=== PATIENT | female | born 2005 | race Caucasian/White ===

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

== ENCOUNTER → 2025-01-02 | Outpatient (CLI) | payer BC, SELFPAY ==
[2025-01-02 12:46] LABS: Hematocrit 37.4 % (37-47); Hemoglobin 12.2 g/dL (12.0-15.0); Immature Granulocytes Count 0.030 X10^3/uL (0.0-0.0); Mean Corp Hgb Conc 32.6 g/dL (32-36); Mean Corpuscular Volume 88.0 fL (81-99); Mean Platelet Vol. 9.8 fl (6.2-12.0); NRBC Flagged by Analyzer 0 % (0-5); Platelet Count 269 K/mm3 (150-450); RBC Distribution Width CV 12.7 % (11.6-14.6); RBC Distribution Width SD 41.1 fl (35.1-43.9); Red Blood Count 4.25 M/mm3 (4.2-5.4); White Blood Count 9.6 K/mm3 (4.4-11.0)
== END | disposition home or self-care (01) ==
LOC: BFHLAB 10:18
PROVIDERS: PCP Family Medicine; Visit Provider Student in an Organized Health Care Education/Training Program
DX: K62.5 Hemorrhage of anus and rectum (principal)
CPT/HCPCS: 36415; 85025

== ENCOUNTER → 2025-01-06 | Outpatient (CLI) | payer BC, SELFPAY ==
[2025-01-07 17:08] LABS: Immunoglobulin A 140 mg/dL (87-352)
== END | disposition home or self-care (01) ==
LOC: LAB 08:52
PROVIDERS: PCP Family Medicine; Referring Provider Student in an Organized Health Care Education/Training Program; Visit Provider Student in an Organized Health Care Education/Training Program
DX: R10.13 Epigastric pain (principal); R19.5 Other fecal abnormalities
CPT/HCPCS: 36415; 82784; 83516; 86255

== ENCOUNTER 2025-02-01 12:34 | Emergency (ER) | payer BC, SELFPAY ==
[2025-02-01 12:34] VITALS: BP 129/88; PULSE 84; RESP 16; TEMP 36.9; O2SAT 100; BMI 22.1
--- OUTSIDE RECORDS SUMMARY | 2025-02-01 12:59 | XMS RPT_ITS | CCD ---
Author Organization [facility] Inform ion [facility] Care Team Providers Care Yellow Pages Space Salesperson Name Role Phone Alan Vences MD Primary Care Provider Dr. Shawn Vences Primary Care Provider [phone] Dr. Shawn Vences Referring Provider Joanne INTERMEDIATE MANAGER, [place] Attending Provider [phone] LIO HOOD Attending Unavailable ALAN VENCES Referring [...] Care Provider UnavailHASMUKH Bae Attending Unavailable Sandra MNCALLY, Dr. Nicole Primary Care Provider [phone] Sandra MCNALLY, Dr. Nicole Referring Provider Joanne INTERMEDIATE MANAGER-C, Trista Attending Provider Jeremy INTERMEDIATE MANAGER-C, Mayelin Attending Provider Jeremy INTERMEDIATE MANAGER-C, Mayelin Referring Provider Sandra MCNALLY, Dr. Nicole Attending Provider [phone] Jeremy INTERMEDIATE MANAGER-C, Mayelin Other Provider Dr. Kadie Gonzales DO Emergency Provider Sandra MCNALLY, Dr. Nicole Primary Care Provider Dr. Bonnie Flores MD Referring Provider [phone] Dr. Kadie Gonzales DO Attending Provider Dr. Pola Mirza DO Attending Provider Dr. Pola Mirza DO Other Provider Sandra MCNALLY, Dr. Nicole Primary Care Physician Jeremy INTERMEDIATE MANAGER-C, Mayelin Attending Physician Dr. Bonnie Flores MD Attending Physician Jeremy INTERMEDIATE MANAGER-C, Mayelin Nurse Practitioner Dr. Kadie Gonzales DO Attending Physician Dr. Kadie Gonzales DO Emergency Department Physi vita Dr. Pola Mirza DO Attending Physician Hermes PARTIDA, Dr. Escalona Nurse Practitioner Abbie Corea Attending Physician [phone] Abbie Corea Referring Provider Sebastián Hankins Attending Unavailable Bonnie Flores Primary Care Unavailable Pola Mirza Attending Unavailable Bonnie Flores Referring Unavailable Bonnie Flores Primary Care Unavailable Bonnie Flores Primary Care Unavailable Bonnie Flores Attending Unavailable Mayelin Luna Consulting Unavailable Miedel, Bonnie Referring Unavailable Miedel, Bonnie Primary Care Unavailable Mayelin Luna Attending Unavailable Mayelin Luna Referring Unavailable Abbie Tenorio Attending Unavailable Miedel, Bonnie Primary Care Unavailable Trista Rubio NP Attending Unavailable Miedel, Bonnie Referring Unavailable Miedel, Bonnie Primary Care Unavailable Mayelin Luna Attending Unavailable Miedel, Bonnie Referring Unavailable Miedel, Bonnie Primary Care Unavailable Abbie Tenorio Attending Unavailable Miedel, Bonnie Referring Unavailable Miedel, Bonnie Primary Care Unavailable Friend, Pola Consulting Unavailable Friend, Pola Attending Unavailable Miedel, Bonnie Referring Unavailable Miedel, Bonnie Primary Care Unavailable Abbie Tenorio Attending Unavailable Abbie Tenorio Referring Unavailable Miedel, Bonnie Primary Care Unavailable Miedel, Bonnie Attending Unavailable Miedel, Bonnie Referring Unavailable Miedel, Bonnie Primary Care Unavailable Miedel, Bonnie Primary Care Unavailable Mayelin Luna Referring Unavailable Mayelin Luna Attending Unavailable Kadie Gonzales Attending Unavailable Miedel, Bonnie Primary Care Unavailable Medications [...] Estradiol (20 sources) Progestin, Estrogen Start: 08-19-2024 Start: 08-19-2024 Norgestimate-E thinyl Estradiol (Sprintec (28)) 0.25-35 mg-mcg tablet Active 1 {tbl} PO daily 84 August 19, 2024 8:12am Start: 07-22-2024 End: [...] TABLET PO daily February 21, 2022 12:00am hyoscyamine sulfate 0.125 mg oral tablet (3 sources) Start: 01-06-2025 ibuprofen 200 mg oral tablet (2 sources) [...] End: 11-22-2021 Lactated Ringers IV Desogestrel-Ethinyl Estradiol (11 sources) Progestin, Estrogen Start: 01-12-2022 End: 02-21-2022 [...] 11, 2022 11:00pm February 21, 2022 1:30pm dicyclomine hydrochloride 20 mg oral tablet (5 sources) Anticholinergic Start: 12-05-2024 End: 12-17-2024 take 1 tablet by mouth twice daily Dicyclomine 20 mg tablet Discontinued 20 mg PO TWICE A DAY 0 December 05, 2024 12:00am December 17, 2024 10:28am doxycycline hyclate 20 mg oral tablet (11 sources) Tetracycline-class Drug Start: 01-12-2022 End: 02-04-2024 [...] Patch ondansetron 4 mg disintegrating oral tablet (9 sources) Serotonin-3 Receptor Antagonist Start: 02-04-2024 End: [...] Active Problems Problem Classification Problem Date Documented Da te Episodic/Chronic Abdominal pain (20 sources) Generalized abdominal pain; Translations: [Generalized abdominal pain] Onset: 12-06-2024 02-12-2024 Episodic Administrative/social admission (1 source) Encounter for examination for admission to educational institution; Translations: [Encounter for examination for admission to educational institution] Onset: 12-04-2024 Episodic Contraceptive and procreative management (3 sources) Encounter for initial prescription of contraceptive pills; Translations: [General counseling on prescription of oral contraceptives] Episodic Fluid and electrolyte disorders (8 sources) Dehydration; Translations: [Dehydration] 02-12-2024 Episodic Gastrointestinal hemorrhage (4 sources) Rectal hemorrhage; Translations: [Hemorrhage of anus and rectum] Onset: 01-14-2025 01-01-2025 Episodic Immunizations and screening for infectious disease (1 source) Contact with and (suspected) exposure to infections with a predominantly sexual mode of transmission; Translations: [Contact with or exposure to venereal diseases] Episodic Other gastrointestinal disorders (5 sources) Diarrhea; Translations: [Diarrhea, unspecified] 12-06-2024 Episodic Other gastrointestinal disorders (6 sources) Loose stool; Translations: [Other fecal abnormalities] 01-06-2025 Episodic Other gastrointestinal disorders (1 source) Other fecal abnormalities; Translations: [Other fecal abnormalities] Onset: 01-06-2025 Episodic Other gastrointestinal disorders (1 source) Diarrhea, unspecified; Translations: [Diarrhea, unspecified] Onset: 01-09-2025 Episodic Other nervous system disorders (1 source) Postoperative pain ; Translations: [Other acute postprocedural pain] Episodic Other non-traumatic joint disorders (4 sources) Shoulder pain; Translations: [Pain in right shoulder] Onset: 11-04-2021 Episodic Other nutritional; endocrine; and metabolic disorders (8 sources) Ketosis; 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 disorders] 02-12-2024 Chronic Other skin disorders (15 sources) Acne; Translations: [Acne, unspecified] 04-05-2022 Episodic Comment on above: sprintec Other upper respiratory infections (3 sources) Acute upper respiratory infection, unspecified; Translations: [Acute upper respiratory infection] Onset: 12-25-2023 Episodic Residual codes; unclassified (11 sources) History of operative procedure on shoulder; Translations: [Other specified postprocedural states] 01-12-2022 Episodic Comment on above: R, LABRAL TEAR Viral infection (1 source) Viral disease; Translations: [Viral infection, unspecified] 05-19-2024 Episodic Past or Other Problems Problem Classification Problem Date Documented Da te Episodic/Chronic Nausea and vomiting (9 sources) Nausea, vomiting and diarrhea; Translations: [Nausea with vomiting, unspecified] Onset: 08-19-2024 02-12-2024 Episodic Other skin disorders (4 sources) Acne, unspecified; Translations: [Other acne] Onset: 09-19-2024 Episodic Results Test Name Value Interpretation Reference Range Facility Celiac Disease Profileon ENDOMYSIAL IGA Negative Normal Negative [facility] Comment on above: Performed By: #### L 500.2500 #### [facility] [address] [place], [place], [id number] IMMUNOGLOB A QN 140 mg/dL Normal 87-352 [facility] Comment on above: Result Comment: Perf ormed at: - [facility] [address] [id number] Sales Order Administrator: Sean Alvarez PhD, Phone: [phone] Performed By: #### L 500.2500 #### [facility] [address] [place], [place], [address] tTG IGA <2 Normal 0-3 [facility] Comment on above: Result Comment: Nega tive 0 - 3 Weak Positive 4 - 10 Positive >10 Tissue Transglutaminase (tTG) has been identified as the endomysial antigen. Studies have demonstr- ated that endomysial IgA antibodies have over 99% specificity for gluten sensitive enteropathy. Performed By: #### L 500.2500 #### [facility] [address] [place], [place], [address] Gastroenterology Visit Repor ton 01-06-2025 Gastroenterology Visit Report [facility] Gastroenterology [address] [place] [address] OFFICE VISIT Date of Service: 01/06/25 MR#: [id number] Acct: [id number] Name: AMELIE NAIK Rep #: [id number] : 2005 Provider: IFRAH Freeman Age/Sex: 19/F Location: [facility] Status: Signed Intake Vital Signs 08/19/24 08:05 12/23/24 12:20 Height 5 ft 6 in 5 ft 6 in Intake Visit Reasons: Test Result Chief Complaint: test results and rectal bleeding Nut Feeder Required: No Is patient in pain?: Yes (lower abdomen) Allergies No Known Allergies Allergy (Verified 01/06/25 08:32) Medications ???Medication ???Instructions ???Recorded ???Confirmed ???Type norgestimate 0.25 mg-ethinyl 1 tab PO QDAY #84 tabs 08/19/24 Rx estradiol 0.035 mg tablet (Sprintec (28)) hyoscyamine sulfate 0.125 mg tablet 0.125 mg PO BID-QID PRN dyspeps ia 01/06/25 01/06/25 Rx #30 tabs PFSH Medical History Back pain Non-smoker Acne Surgical History H/O shoulder surgery Social History pets and animals: Yes sexually active: No Smoking Status: Never smoker alcohol intake: never substance use type: does not use well-balanced diet: daily or most days caffeine: Yes Type: carbonated beverages, coffee and other what type of physical activity do you participate in: weight training seatbelt use: always HPI HPI Chief Complaint: test results and rectal bleeding Details: AMELIE NAIK, is a 19 F who presents to the office today for follow-up. BGI established 11.27.24 with concerns for IBD patient has symptoms including abdominal pain, diarrhea and 7 pound unintentional weight loss over the past few months, nausea and excessive gas. Laboratory findings: CBC without abnormality, CMP without abnormality, PATEL negative, food allergen negative, calprotectin negative, pancreatic elastase within normal limits CT abdomen pelvis On ovulating follicle in the left ovary with trace physiological free fluid in the pelvis. Otherwise, no acute abdominopelvic abnormalities Colonoscopy 12.23.24- The entire examined colon is normal. Biopsied. - Mild inflammation was found in the ileum secondary to ileitis. Biopsied. Pathology: Terminal ileum biopsy with mild acute inflammation prominent mucosal lymphoid tissue favor reactive. Colon biopsy no specific pathologic change. OV 01.06.25 patient continues to have loose stool daily. She has around 5 bowel movements per day that are sometimes formed and sometimes loose. Patient's abdominal pain is typically after she eats and is in her lower quadrants. At times she can have random sharp pains that are periumbilical. She did have an episode of bright red blood per rectum which filled the bowl. CBC was normal and she was seen by her primary care provider and given a cream for hemorrhoids. Bleeding has since resolved. ROS Const Constitutional: No fatigue, fever(s) or weight change ENT ENT: No difficulty swallowing Gastro GI: Positive for abdominal pain, diarrhea, Blood in stool and nausea/dyspepsia; No belching, bloating, change in bowel habits, change in stool character, coffee ground emesis, constipation, cramping, heartburn, difficulty swallowing, feeling full early, excessive flatus, incontinent of stools, Vomiting blood/hematemesis, loose stools, Black,tarry stools, pain with swallowing, vomiting or other Musc Musculoskeletal: Positive for back pain; No joint pain Skin Skin: No yellowing of the eye or itchy eyes Psych Psychiatric: No anxiety and No depression Endo Endocrine: No fatigue or weight change Aller/Imm Allergy/Immunologic: No itchy eyes [facility] Hematologic/Lymphatic : No easy bleeding or easy bruising Exam Const General: cooperative, healthy appearing and comfortable Nutritional Appearance: average body habitus Orientation: alert [facility] Head: normal to inspection Ears: hearing grossly normal bilaterally Nose: external nose normal Eyes General: appearance normal, both eyes and all related structures Neck Neck: normal visual inspection Chest Chest palpation inspection: normal inspection of the chest Resp Effort Inspection: normal respiratory effort Cardio Rate: regular rate Rhythm: regular rhythm GI Inspection: normal to inspection Auscultation: normal bowel sounds Palpation: soft and nontender Assessment and Plan Assessment and Plan (1) Abdominal pain: Status: Acute Qualifiers: Abdominal location: epigastric Qualified Code(s): R10.13 - Epigastric pain Plan: Amelie is a 19-year-old female patient here today for follow-up after her colonoscopy. Colonoscopy showing mild infl (more content not included)... Normal [facility] Serum or plasma IgA measurem ent (mass/volume)Ordered By: Abbie Tenorio on 01-06-2025 IgA [Mass/Vol] 140 mg/dL 87-352 [facility] Comment on above: Performed at: [address] [id number] Director: Sean Alvarez PhD, Phone: [phone] Serum tissue transglutaminas e (tTG) IgA antibody assay (units/volume)Ordered By: Abbie Tenorio on 01-06-2025 tTG IgA Qn (S) <2 U/mL 0-3 [facility] Comment on above: Negative 0 - 3 Weak Positive 4 - 10 Positive >10 Tissue Transglutaminase (tTG) has been identified as the endomysial antigen. Studies have demonstr- ated that endomysial IgA antibodies have over 99% specificity for gluten sensitive enteropathy. Absolute lymphocyte countOrd ered By: Abbie Tenorio on 01-02-2025 Lymphocytes Auto (Unsp spec) [#/Vol] 1.20 10*3/uL 0.83-4.51 [facility] Absolute neutrophil countOrd ered By: Abbie Tenorio on 01-02-2025 Neutrophils (Bld) [#/Vol] 7.5 10*3/uL 2.0-7.7 [facility] Automated lymphocyte count a s percentage of total leukocytesOrdered By: Abbie Tenorio on 01-02-2025 Lymphocytes/100 WBC Auto (Unsp spec) 12.5 % Low - [facility] Basophil percentageOrdered B y: Abbie Tenorio on 01-02-2025 Basophils/100 WBC (Bld) 0.3 % 0-1 [facility] CBC W/Diff, Automatedon 12-15 Absolute Lymph 1.20 X10 3/uL Normal 0.83-4.51 [facility] Comment on above: Order Comment: DR. Shauna DUPREE ALSO ORDERED CBCD Performed By: #### L 500.2500 #### [facility] [place] [facility] [address] [place], [address] Absolute Neut 7.5 X10 3/uL Normal 2.0-7.7 [facility] Comment on above: Order Comment: DR. Shauna DUPREE ALSO ORDERED CBCD Performed By: #### L 500.2500 #### [facility] [address] [place], [address] Basophils/100 WBC (Bld) 0.3 % Normal 0-1 [facility] Comment on above: Order Comment: DR. Shauna DUPREE ALSO ORDERED CBCD Performed By: #### L 500.2500 #### [facility] [address] [place], [address] Eosinophils/100 WBC (Bld) 2.1 % Normal 0-5 [facility] Comment on above: Order Comment: DR. Shauna DUPREE ALSO ORDERED CBCD Performed By: #### L 500.2500 #### [facility] [address] [place], [address] Erythrocyte distribution width (RBC) [Ratio] 12.7 % Normal 11.6-14.6 [facility] Comment on above: Order Comment: DR. Shauna DUPREE ALSO ORDERED CBCD Performed By: #### L 500.2500 #### [facility] [address] [place], [address] Hematocrit (Bld) [Volume fraction] 37.4 % Normal 37-47 [facility] Comment on above: Order Comment: DR. Shauna DUPREE ALSO ORDERED CBCD Performed By: #### L 500.2500 #### [facility] [address] [place], [address] Hemoglobin (Bld) [Mass/Vol] 12.2 g/dL Normal 12.0-15.0 [facility] Comment on above: Order Comment: DR. Shauna DUPREE ALSO ORDERED CBCD Performed By: #### L 500.2500 #### [facility] [address] [place], [address] IG% 0.300 Normal 0.0-0.9 [facility] Comment on above: Order Comment: DR. Shauna DUPREE ALSO ORDERED CBCD Result Comment: IG% - Immature Granulocytes (promyelocytes, myelocytes and metamyelocytes) > 1% indicates that a LEFT SHIFT is Present. Performed By: #### L 500.2500 #### [facility] [address] [place], [address] Lymphocytes/100 WBC (Bld) 12.5 % Low 19-41 [facility] Comment on above: Order Comment: DR. Shauna DUPREE ALSO ORDERED CBCD Performed By: #### L 500.2500 #### [facility] [address] [facility] [place], [address] MCH (RBC) [Entitic mass] 28.7 pg Normal 27.0-32.0 [facility] Comment on above: Order Comment: DR. Shauna DUPREE ALSO ORDERED CBCD Performed By: #### L 500.2500 #### [facility] [address] [facility] [place], [address] MCHC (RBC) [Mass/Vol] 32.6 g/dL Normal 32-36 [facility] Comment on above: Order Comment: DR. Shauna DUPREE ALSO ORDERED CBCD Performed By: #### L 500.2500 #### [facility] [address] [facility] [place], [address] MCV (RBC) [Entitic vol] 88.0 fL Normal 81-99 [facility] Comment on above: Order Comment: DR. Shauna DUPREE ALSO ORDERED CBCD Performed By: #### L 500.2500 #### [facility] [address] [facility] [place], [address] Monocytes/100 WBC (Bld) 6.5 % Normal 0-10 [facility] Comment on above: Order Comment: DR. Shauna DUPREE ALSO ORDERED CBCD Performed By: #### L 500.2500 #### [facility] [address] [place], [address] Neutrophils/100 WBC (Bld) 78.3 % High 47-70 [facility] Comment on above: Order Comment: DR. Shauna DUPREE ALSO ORDERED CBCD Performed By: #### L 500.2500 #### [facility] [address] [place], [address] Nucleated RBC (Bld) [#/Vol] 0 10*3/uL Normal 0-5 [facility] Comment on above: Order Comment: DR. Shauna DUPREE ALSO ORDERED CBCD Performed By: #### L 500.2500 #### [facility] [address] [place], [address] Platelet mean volume (Bld) [Entitic vol] 9.8 fL Normal 6.2-12.0 [facility] Comment on above: Order Comment: DR. Shauna DUPREE ALSO ORDERED CBCD Performed By: #### L 500.2500 #### [facility] [address] [place], [address] Platelets (Bld) [#/Vol] 269 10*3/uL Normal 150-450 [facility] Comment on above: Order Comment: DR. Shauna DUPREE ALSO ORDERED CBCD Performed By: #### L 500.2500 #### [facility] [address] [place], [address] RBC (Bld) [#/Vol] 4.25 10*6/uL Normal 4.2-5.4 [facility] Comment on above: Order Comment: DR. Shauna DUPREE ALSO ORDERED CBCD Performed By: #### L 500.2500 #### [facility] [address] [place], [address] RDW SD 41.1 fl Normal 35.1-43.9 [facility] Comment on above: Order Comment: DR. Shauna DUPREE ALSO ORDERED CBCD Performed By: #### L 500.2500 #### [facility] [address] [place], [place], [address] WBC (Bld) [#/Vol] 9.6 10*3/uL Normal 4.4-11.0 [facility] Comment on above: Order Comment: DR. Shauna DUPREE ALSO ORDERED CBCD Performed By: #### L 500.2500 #### [facility] [address] [facility] [address] [place], [place], [address] Eosinophil percentageOrdered By: Abbie Tenorio on 01-02-2025 Eosinophils/100 WBC (Bld) 2.1 % 0-5 [facility] Erythrocyte distribution wid th ratioOrdered By: Abbie Tenorio on 01-02-2025 Erythrocyte distribution width (RBC) [Ratio] 12.7 % 11.6-14.6 [facility] Erythrocyte distribution wid th standard deviationOrdered By: Abbie Tenorio on 01-02-2025 Erythrocyte distribution width (RBC) [Ratio] 41.1 fl 35.1-43.9 [facility] Hematocrit Auto (Bld) [Volum e fraction]Ordered By: Abbievicky Tenorio on 01-02-2025 Hematocrit (Bld) [Volume fraction] 37.4 % 37-47 [facility] Hemoglobin measurementOrdere d By: Abbie Tenorio on 01-02-2025 Hemoglobin (Bld) [Mass/Vol] 12.2 g/dL 12.0-15.0 [facility] Immature granulocytes/100 WB C Auto (Bld)Ordered By: Abbie Tenorio on 01-02-2025 Immature granulocytes/100 WBC (Bld) 0.300 % 0.0-0.9 [facility] Comment on above: IG% - Immature Granu locytes (promyelocytes, myelocytes and metamyelocytes) > 1% indicates that a LEFT SHIFT is Present. MCV (mean corpuscular volume ) determinationOrdered By: Abbie Tenorio on 01-02-2025 MCV (RBC) [Entitic vol] 88.0 fL 81-99 [facility] Mean corpuscular hemoglobin (MCH) determinationOrdered By: Abbie Tenorio on 01-02-2025 MCH (RBC) [Entitic mass] 28.7 pg 27.0-32.0 [facility] Mean corpuscular hemoglobin concentration (MCHC) determinationOrdered By: Abbie Tenorio on 01-02-2025 MCHC (RBC) [Mass/Vol] 32.6 g/dL 32-36 [facility] Mean platelet volume determi nationOrdered By: Abbie Tenorio on 01-02-2025 Platelet mean volume (Bld) [Entitic vol] 9.8 fL 6.2-12.0 [facility] Monocyte percentageOrdered B y: Abbie Tenorio on 01-02-2025 Monocytes/100 WBC (Bld) 6.5 % 0-10 [facility] Neutrophil percentageOrdered By: Abbie Tenorio on 01-02-2025 Neutrophils/100 WBC (Bld) 78.3 % High 47-70 [facility] Nucleated red blood cell per centageOrdered By: Abbie Tenorio on 01-02-2025 Nucleated RBC/100 WBC (Bld) [Ratio] 0 % 0-5 [facility] Platelet countOrdered By: Anya Tenorio on 01-02-2025 Platelets (Bld) [#/Vol] 269 10*3/uL 150-450 [facility] RBC Auto (Bld) [#/Vol]Ordere d By: Abbie Tenorio on 01-02-2025 RBC (Bld) [#/Vol] 4.25 10*6/uL 4.2-5.4 [facility] White blood cell (WBC) count Ordered By: Abbie Tenorio on 01-02-2025 WBC (Bld) [#/Vol] 9.6 10*3/uL 4.4-11.0 [facility] Colonoscopy Reporton 025 Colonoscopy Report [facility] Medical Records Department [address] [place] [address] Colonoscopy Report MR#: [id number] Acct: [id number] Name: AMELIE NAIK Rep #: [id number] : 2005 19 From: Polatiana Mirza DO PCP: Dr. Bonnie Flores MD Status:[facility] Patient Name: Amelie Naik Procedure Date: 12/23/2024 1:37 PM Date of : 2005 Age: 19 Procedure: Colonoscopy Indications: Screening for colorectal malignant neoplasm Providers: DO Carlos A Conde MD: Bonnie Flores Medicines: Monitored Anesthesia Care Patient Profile: This is a 19 year old female. Refer to note in patient chart for documentation of history and physical. Last Colonoscopy: none. The patient's first colonoscopy is today. Complications: No immediate complications. Procedure: Pre-Anesthesia Assessment: - Prior to the procedure, a History and Physical was performed, and patient medications and allergies were reviewed. The patient is competent. The risks and benefits of the procedure and the sedation options and risks were discussed with the patient. All questions were answered and informed consent was obtained. Patient identification and proposed procedure were verified by the physician in the pre-procedure area. Mental Status Examination: alert and oriented. Airway Examination: normal oropharyngeal airway and neck mobility. Respiratory Examination: clear to auscultation. CV Examination: normal. Prophylactic Antibiotics: The patient does not require prophylactic antibiotics. Prior Anticoagulants: The patient has taken no anticoagulant or antiplatelet agents except for NSAID medication. ASA Grade Assessment: II - A patient with mild systemic disease. After reviewing the risks and benefits, the patient was deemed in satisfactory condition to undergo the procedure. The anesthesia plan was to use monitored anesthesia care (MAC). Immediately prior to administration of medications, the patient was re-assessed for adequacy to receive sedatives. The heart rate, respiratory rate, oxygen saturations, blood pressure, adequacy of pulmonary ventilation, and response to care were monitored throughout the procedure. The physical status of the patient was re-assessed after the procedure. After I obtained informed consent, the scope was passed under direct vision. Throughout the procedure, the patient's blood pressure, pulse, and oxygen saturations were monitored continuously. The Colonoscope was introduced through the anus and advanced to the terminal ileum. The colonoscopy was performed without difficulty. The patient tolerated the procedure well. The quality of the bowel preparation was adequate. The terminal ileum, ileocecal valve, appendiceal orifice, and rectum were photographed. Scope In: 1:52:40 PM Scope Withdrawal Time 0 hours 9 minutes 33 seconds Scope Out: 2:08:24 PM Total Procedure Duration Time 0 hours 15 minutes 44 seconds Findings: The perianal and digital rectal examinations were normal. The colon (entire examined portion) appeared normal. Biopsies were taken with a cold forceps for histology. Verification of patient identification for the specimen was done. Estimated blood loss was minimal. Patchy mild inflammation characterized by erosions and erythema was found in the terminal ileum. Biopsies were taken with a cold forceps for histology. Verification of patient identification for the specimen was done. Estimated blood loss was minimal. Impression: - The entire examined colon is normal. Biopsied. - Mild inflammation was found in the ileum secondary to ileitis. Biopsied. Recommendation: - Discharge patient to home. - Resume previous diet. - Continue present medications. - Await pathology results. - Repeat colonoscopy (date not yet determined) for surveillance based on pathology results. Procedure Code(s): --- Professional --- 00590, Colonoscopy, flexible; with biopsy, single or multiple CPT copyright 2021 [employer]. All rights reserved. The codes documented in this report are preliminary and upon dye house wheel operator review may be revised to meet current compliance requirements. Pola Mirza DO 12/23/2024 2:13:37 PM This report has been signed electronically. Number of Addenda: 0 Note Initiated On: 12/23/2024 1:37 PM 12/23/24 1413 Date Pola Mirza DO Cosigner Signature: Date (if indicated) CC: Dr. Bonnie Flores MD; Pola Mirza DO Date Dictated: 12/23/24 1337 Date Transcribed: Air Chief Marshal: AVERY Signed [facility] MR/OP.Melanie 12-23-2024 MR/OP.[facility] Medical Records Department [address] [place] [address] Provation Physician Letter MR#: [id number] Acct: [id number] Name: BURGESSAMELIECASS COLEMAN Rep #: [id number] : 2005 19 From: Pola Mirza DO PCP: Dr. Bonnie Flores MD Status:REG [facility] 12/23/2024 Bonnie Flores [address] [address] Re : Colonoscopy procedure for Amelie Naik Dear Dr. Flores This procedure was performed on Monday, December 23, 2024. My impressions and recommendations are as follows: Impressions : - The entire examined colon is normal. Biopsied. - Mild inflammation was found in the ileum secondary to ileitis. Biopsied. Recommendations : - Discharge patient to home. - Resume previous diet. - Continue present medications. - Await pathology results. - Repeat colonoscopy (date not yet determined) for surveillance based on pathology results. My findings are described in the full procedure note, which is enclosed. If I can be of further assistance, please feel free to contact me at . Sincerely, Pola Mirza DO 12/23/2024 2:13:37 PM This report has been signed electronically. 12/23/24 1413 Date Pola Mirza DO Cosigner Signature: Date (if indicated) CC: Dr. Bonnie Flores MD; Pola Mirza DO Date Dictated: 12/23/24 1337 Date Transcribed: Air Chief Marshal: RF Signed Normal [facility] MR/POSTOP.ANEpaola 12-23-2024 MR/POSTOP.[facility] Medical Records Department [address] [place] [address] Anesthesia Postop Eval I 12/23/24 1417 MR#: [id number] Acct: [id number] Name: AMELIE NAIK Rep #: [id number] : 2005 19 From: Vandana Stephenson CRNA PCP: Dr. Bonnie Flores MD Status:[facility] Y Race: C Location: [place] [address] Anesthesia: Postop Eval I Current Vital Signs Temperature: 98 F Pulse Rate: 73 Blood Pressure: 110/88 Respiratory Rate: 20 Pulse Ox: 99 Assessment Airway patent: Yes Spontaneous unlabored respirations: Yes nausea: No Vomiting: No Anesthesia Complication: No Fluid Hydration Crystalloid volume administer (ml): 300 Total IV fluid infused: 300 Progress Note Anesthesia document: Postop Eval 1 completed: Yes 12/23/24 1418 Date Vandana Stephenson ARTIST AND REPERTOIRE MANAGER Cosigner Signature: Date CC: Signed Normal [facility] MR/[id number] 12-23-2024 [facility] Medical Records Department [address] [place] [address] Anesthesia Postop Eval II 12/23/24 1852 MR#: [id number] Acct: [id number] Name: AMELIE NAIK Rep #: [id number] : 2005 19 From: Ron Delarosa MD PCP: Dr. Bonnie Flores MD Status:[facility] Y Race: C Location: [place] Anesthesia Postop Eval I Sum Postop Eval Completion status Anesthesia document: Postop Eval 1 completed: Yes Anesthesia Postop Eval I Summary Anesthesia Postop Eval I Summary: Anesthesia Postop Eval I: Assessment Summary Airway patent Yes 12/23/24 14:17 ARTIST AND REPERTOIRE MANAGER.CSIR Spontaneous unlabored Yes 12/23/24 14:17 ARTIST AND REPERTOIRE MANAGER.CSIR respirations Mental status nausea No 12/23/24 14:17 ARTIST AND REPERTOIRE MANAGER.CSIR Vomiting No 12/23/24 14:17 ARTIST AND REPERTOIRE MANAGER.CSIR Anesthesia Postop Eval I: Fluid Summary Crystalloid volume administer 300 12/23/24 14:17 ARTIST AND REPERTOIRE MANAGER.CSIR (ml) Colloids volume administered ( ml) Blood Product volume administered (ml) Total IV fluid infused 300 12/23/24 14:17 ARTIST AND REPERTOIRE MANAGER.CSIR Anesthesia Postop Eval I: Summary Notes Anesthesia Complication No 12/23/24 14:17 ARTIST AND REPERTOIRE MANAGER.CSIR Anesthesia Complication Comment: Post-operative progress note Anesthesia: Postop Eval II Evaluation Mental status: Awake and Calm Pain Level: 0 nausea: No Vomiting: No Complications Anesthesia Complication: No 12/23/24 1853 Date Ron Delarosa MD Cosigner Signature: Date CC: Signed [facility] ,Serum,hCG Quali.on 12-23-2024 HCG, SERUM QUAL Negative [facility] Comment on above: Performed By: #### L 500.2500 #### [facility] [address] [place], [place], [id number] ,Urineon 12-23-2024 Beta HCG ( test) Ql (U) [facility] Comment on above: Result Comment: Canc elled via OM: unable to void Performed By: #### P SUIV #### [facility] [address] [place], [place], [id number] INTERNAL QC OK? [facility] Comment on above: Result Comment: Canc elled via OM: unable to void Performed By: #### P SUIV #### [facility] [address] [place], [place], [id number] RECORD KIT LOT# [facility] Comment on above: Result Comment: Canc elled via OM: unable to void Performed By: #### P SUIV #### [facility] [address] [place], [place], [id number] Serum beta-hCG test, qualita tiveOrdered By: Ron Delarosa on 12-23-2024 Beta HCG ( test) Ql Negative [facility] Surgery Specimen Level gAustina 12-23-2024 Surgery Specimen Level IV -------- Patient Age/Sex Location Account Attending Physician -------- AMELIE NAIK / EN [id number] Pola Mirza DO -------- Specimen: [id number] Received: 12/23/24 Status: VALENCIA Khalil Num: [id number] Spec Type: COLON BX Subm Dr: Pola Mirza, DO HEADER OPERATION: Colonoscopy, biopsy PRE-OP DIAGNOSIS: Dysphagia, loose stools, epigastric abdominal pain TISSUE SUBMITTED: A- Terminal ileum biopsy, B- Random colonic biopsy -------- MICROSCOPIC DIAGNOSIS A. Terminal ileum, biopsy: - Mild acute inflammation. - Prominent mucosal lymphoid tissue, favor reactive. B. Colon, random, biopsy: - No specific pathologic change. - The histologic features of microscopic colitis are not demonstrated. MICROSCOPIC DESCRIPTION Slides are reviewed. GROSS DESCRIPTION A. Received in fixative is one container labeled with the patient's name and designated Terminal ileum biopsy. The specimen consists of multiple irregular fragments of light dos santos soft tissue that in aggregate measure 1.2 x 0.4 x 0.2 cm. The specimen is totally submitted in one cassette. B. Received in fixative is one container labeled with the patient's name and designated Random colonic biopsy. The specimen consists of multiple irregular fragments of light dos santos soft tissue that in aggregate measure 2.1 x 0.6 x 0.1 cm. The specimen is totally submitted in one cassette. PR 12/24/[address] [facility]:[id number] -------- Patient Age/Sex Location Account Attending Physician -------- AMELIE NAIK / EN [id number] Pola Mirza DO -------- Signed (signature on file) Dr. Marianela Bowen MD 12/30/24 1216 -------- Normal [facility] Comment on above: Performed By: #### P SUIV #### [facility] [address] [place] [address]. [place], [place], [id number] Abdomen/Pelvis WITH Contrast on 12-06-2024 Abdomen/Pelvis WITH Contrast [facility] Imaging Services [address] [place] [id number] Abdomen/Pelvis WITH Contrast MR#: [id number] Acct: [id number] Name: AMELIE NAIK Rep #: [id number] : 2005 F 19 From: April Mejia MD PCP: Dr. Bonnie Flores MD Status: [facility] Study: Abdomen/Pelvis WITH Contrast Date of Exam: Exam# [id number] Ordering Dr: Kadie Gonzales DO PROCEDURE: ABDOMEN/PELVIS WITH CONTRAST 12/06/2024 REASON FOR EXAM: ABD PAIN, LUQ, DIARRHEA TECHNIQUE: ABDOMEN/PELVIS WITH CONTRAST Coronal and Sagittal reconstruction series were provided. CONTRAST: Isovue 370 VOLUME: 75 mL One or more dose reduction techniques were used (e.g., Automated exposure control, adjustment of the mA and/or kV according to patient size, use of iterative reconstruction technique. RADIATION DOSE SUMMARY: CTDlvol: 6.66 mGy DLP: 344.26 mGycm COMPARISON: Abdominal x-ray 05/05/2020. No comparison CT abdomen and pelvis are available. FINDINGS: Lung bases: Clear. Liver: Unremarkable. Gallbladder: Unremarkable. Spleen: Unremarkable. Pancreas: Unremarkable. Adrenals: Unremarkable. Kidneys: No hydronephrosis or nephrolithiasis. Bladder: Unremarkable. Reproductive Organs: And ovulating follicle in the left ovary. Bowel: No bowel wall thickening. No bowel obstruction. Appendix: No evidence of acute appendicitis. Lymph nodes: No lymphadenopathy. Vasculature: No aneurysm. Peritoneum / Retroperitoneum: Trace free fluid in the pelvis which is nonspecific and can be physiological. Bones: No acute bony abnormalities. CT/Abdomen/Pelvis WITH Contrast IMPRESSION: On ovulating follicle in the left ovary with trace physiological free fluid in the pelvis. Otherwise, no acute abdominopelvic abnormalities. Reading Location: [facility] CC: Dr. Kadie oGnzales DO; Dr. Bonnie Flores MD Air Chief Marshal: Signed Normal [facility] Absolute lymphocyte countOrd ered By: Kadie Gonzales on 12-06-2024 Lymphocytes Auto (Unsp spec) [#/Vol] 3.15 10*3/uL 0.83-4.51 [facility] Absolute neutrophil countOrd ered By: Kadie Gonzales on 12-06-2024 Neutrophils (Bld) [#/Vol] 6.4 10*3/uL 2.0-7.7 [facility] Anion gap in Serum or Plasma Ordered By: Kadie Gonzales on 12-06-2024 Anion gap [Moles/Vol] 15 mmol/L 5-15 [facility] Automated blood erythrocyte countOrdered By: Kadie Gonzales on 12-06-2024 RBC (Bld) [#/Vol] 4.65 10*6/uL Normal 4.2-5.4 [facility] Comment on above: Performed By: #### L 500.2500 #### [facility] [address] [place], [address] Automated blood hematocrit ( percentage)Ordered By: Kadie Gonzales on 12-06-2024 Hematocrit (Bld) [Volume fraction] 40.7 % Normal 37-47 [facility] Comment on above: Performed By: #### L 500.2500 #### [facility] [address] [place], [place], [id number] Automated lymphocyte count a s percentage of total leukocytesOrdered By: Kadieleila Gonzales on 12-06-2024 Lymphocytes/100 WBC Auto (Unsp spec) 30.0 % 19- [facility] BUN/creatinine ratioOrdered By: Kadie Gonzales on 12-06-2024 Urea nitrogen/Creatinine [Mass ratio] 14.3 mg/mg 10-20 [facility] Basophil percentageOrdered B y: Kadie Gonzales on 12-06-2024 Basophils/100 WBC (Bld) 0.5 % Normal 0-1 [facility] Comment on above: Performed By: #### L 500.2500 #### [facility] [address] [address] [place], [address] Bilirubin Test strip Ql (U)O rdered By: Kadieleila Gonzales on 12-06-2024 Bilirubin Ql (U) Negative Negative [facility] Bilirubin, totalOrdered By: Kadie Gonzales on 12-06-2024 Bilirubin [Mass/Vol] 0.20 mg/dL Normal 0.00-1.30 [facility] Comment on above: Performed By: #### L 500.2500 #### [facility] [address] [facility] [place], [address] CBC W/Diff, Automatedon 11-15 Absolute Lymph 3.15 X10 3/uL Normal 0.83-4.51 [facility] Comment on above: Performed By: #### L 500.2500 #### [facility] [address] [place], [address] Absolute Neut 6.4 X10 3/uL Normal 2.0-7.7 [facility] Comment on above: Performed By: #### L 500.2500 #### [facility] [address] [place], [address] IG% 0.300 Normal 0.0-0.9 [facility] Comment on above: Result Comment: IG% - Immature Granulocytes (promyelocytes, myelocytes and metamyelocytes) > 1% indicates that a LEFT SHIFT is Present. Performed By: #### L 500.2500 #### [facility] [address] [place], [address] Lymphocytes/100 WBC (Bld) 30.0 % Normal 19-41 [facility] Comment on above: Performed By: #### L 500.2500 #### [facility] [address] [place], [address] Nucleated RBC (Bld) [#/Vol] 0 10*3/uL Normal 0-5 [facility] Comment on above: Performed By: #### L 500.2500 #### [facility] [address] [place], [address] RDW SD 41.3 fl Normal 35.1-43.9 [facility] Comment on above: Performed By: #### L 500.2500 #### [facility] [address] [place], [address] Carbon dioxide, total [Moles /volume] in Central venous bloodOrdered By: Kadie Gonzales on 12-06-2024 CO2 [Moles/Vol] 21.4 mmol/L Normal 21.0-32.0 [facility] Comment on above: Performed By: #### L 500.2500 #### [facility] [address] [place], [address] Chloride assayOrdered By: Agustin Gonzales on 12-06-2024 Chloride [Moles/Vol] 103 mmol/L Normal 98-108 [facility] Comment on above: Performed By: #### L 500.2500 #### [facility] [address] [place], [address] Comprehensive Metabolic Prof ilon 12-06-2024 ALK PHOS 50 U/L Normal 35-104 [facility] Comment on above: Performed By: #### L 500.2500 #### [facility] [address] [place], [address] BUN/CRE 14.3 RATIO Normal 10-20 [facility] Comment on above: Performed By: #### L 500.2500 #### [facility] [address] [place], [address] ECRCL 81.45 ml/min Normal 50-250 [facility] Comment on above: Performed By: #### L 500.2500 #### [facility] [address] [place], [address] GAP 15 Normal 5-15 [facility] Comment on above: Performed By: #### L 500.2500 #### [facility] [address] [place], [address] Potassium [Moles/Vol] 3.9 mmol/L Normal 3.3-5.1 [facility] Comment on above: Performed By: #### L 500.2500 #### [facility] [address] [place], [address] T PROT 7.6 g/dL Normal 5.9-8.4 [facility] Comment on above: Performed By: #### L 500.2500 #### [facility] [address] [place], [address] Comprehensive Metabolic Prof ilOrdered By: Kadie Gonzales on 12-06-2024 AST [Catalytic activity/Vol] 19 U/L Normal <=31 [facility] Comment on above: Performed By: #### L 500.2500 #### [facility] [address] [place], [address] Emergency Department Summary on 12-06-2024 Emergency Department Summary [facility] Medical Records Department [address] [place] [address] Emergency Department Summary 12/06/24 MR#: [id number] Acct: [id number] Name: AMELIE VIRGINIA Rep #: [id number] : 2005 19 From: Kadie Gonzales DO PCP: Dr. Bonnie Flores MD Status:REG ER Location: ED HPI HPI - GI History of Present Illness Chief Complaint: Abd Pain Informant: patient Narrative Narrative: Patient is a 19-year-old female presenting with cramping abdominal pain and diarrhea. Patient states she has been dealing with abdominal pain and weight loss for the past year. Recently followed up with GI and was seen. Has outpatient testing including CT with p.o. and IV contrast ordered. She has a family history of inflammatory bowel disease in her sister and her grandmother. She states that yesterday she developed some sharp pain in her left upper quadrant that is worsened throughout the day today. She was recently prescribed Bentyl and took it for the first time. 2 hours later she had severe cramping throughout her stomach and diarrhea. She came to the ER for further evaluation. She does have some associated nausea denies any vomiting. Denies any black or blood in her stool. Denies any fever or chills. Denies any urinary symptoms. Last menstrual period was November 18. States these are the same symptoms she is been having over the last year (also had been unintentional weight loss with it) but increased severity tonight. She states she is having up to 5 bowel movements a day. She states she gets stomach pain even when she is eating bland food now. Denies any exacerbating or alleviating factors that she can think of. No other complaints or concerns at this time [facility] Medical History Acne Home Medications ???Medication ???Instructions ???Recorded ???Last Taken ???Type norgestimate 0.25 mg-ethinyl 1 tab PO QDAY #84 tabs 08/19/24 Un known Rx estradiol 0.035 mg tablet (Sprintec (28)) dicyclomine 20 mg tablet 20 mg PO BID #60 tabs 12/05/24 Unk nown Rx Allergy/AdvReac Type Severity Reaction Status Date / Time No Known Allergies Allergy Verified 12/06/24 01:53 Surgical History H/O shoulder surgery Social History [...] Constitutional Constitutional ED: Denies chills or fever(s) Cardiovascular Cardiovascular: Denies chest pain Respiratory/Chest Respiratory/Chest: Denies dyspnea Gastrointestinal Gastrointestinal: Reports abdominal pain, diarrhea and nausea; Denies vomiting Genitourinary Genitourinary ED: Denies dysuria or hematuria Musculoskeletal Musculoskeletal: Reports other Details: Note she does have back pain with abdominal pain from time to time ; Denies arthralgias or myalgias Integumentary Denies rash Neurologic Neurologic: Denies paresthesias or weakness Psychiatric Psychiatric: Denies anxiety EXAM Physical Exam Const Vital Signs: 12/06/24 01:54 12/06/24 03:00 12/06/24 04:59 Temperature 98.1 F Temperature Source Oral Pulse Rate 81 70 67 Respiratory Rate 16 16 16 Blood Pressure 132/82 H 117/71 104/52 L Blood Pressure Mean 98 86 69 Pulse Ox 100 100 100 Oxygen Delivery Method Room Air Room Air Room Air Positive well nourished and well developed General Appearance ED: well developed and NAD; Negative for pallor HEENT Reports moist mucous membranes normocephalic and atraumatic Eyes General Eye ED: Negative for pale conjunctiva Resp normal respiratory effort and clear to auscultation bilaterally Cardio regular rate and regular rhythm GI non-distended Auscultation: normoactive bowel sounds Palpation: soft and tender LUQ; Negative for guarding or rigid Back/Spine no CVA tenderness Extremity full ROM General Extremety ED: Negative for edema General Extremity: Negative for edema Neuro moves all extremities Sensorium / Orientation: alert, oriented to person, oriented to place and oriented to time Motor Exam: Negative for general weakness Psych mental status grossly normal and thought process normal Skin General Skin Exam: Negative for jaundice or pallor MDM MDM MDM Narrative Medical decision making narrative: Patient is Biba for worsening cramping abdominal pain especially in the left upper quadrant with associated diarrhea. This happened after taking Bentyl for the first mary (more content not included)... Normal [facility] Eosinophil percentageOrdered By: Kadie Gonzales on 12-06-2024 Eosinophils/100 WBC (Bld) 0.8 % Normal 0-5 [facility] Comment on above: Performed By: #### L 500.2500 #### [facility] [address] [place], [address] Erythrocyte distribution wid th ratioOrdered By: Kadie Gonzales on 12-06-2024 Erythrocyte distribution width (RBC) [Ratio] 13.1 % Normal 11.6-14.6 [facility] Comment on above: Performed By: #### L 500.2500 #### [facility] [address] [place], [place], [id number] ([address]) Erythrocyte distribution wid th standard deviationOrdered By: Kadie Gonzales on 12-06-2024 Erythrocyte distribution width (RBC) [Ratio] 41.3 fl 35.1-43.9 [facility] Glomerular filtration rate ( GFR) estimation/1.73 sq m using serum, plasma, or whole bOrdered By: Kadie Gonzales on 12-06-2024 GFR/1.73 sq M.predicted among non-blacks MDRD (S/P/Bld) [Vol rate/Area] 79 mL/min/{1.73_m2} Normal >60 [facility] Comment on above: mL/min/1.73m2 CKD-EP I Creatinine Equation (2020) Result Comment: mL/m in/1.73m2 CKD-EPI Creatinine Equation (2020) Performed By: #### L 500.2500 #### [facility] [address] [place], [place], [id number] Hemoglobin measurementOrdere d By: Kadie Gonzales on 12-06-2024 Hemoglobin (Bld) [Mass/Vol] 13.4 g/dL Normal 12.0-15.0 [facility] Comment on above: Performed By: #### L 500.2500 #### [facility] [address] [place], [address] Immature granulocytes/100 WB C Auto (Bld)Ordered By: Kadie Gonzales on 12-06-2024 Immature granulocytes/100 WBC (Bld) 0.300 % 0.0-0.9 [facility] Comment on above: IG% - Immature Granu locytes (promyelocytes, myelocytes and metamyelocytes) > 1% indicates that a LEFT SHIFT is Present. Ketones Test strip Ql (U)Ord ered By: Kadie Gonzales on 12-06-2024 Ketones Ql (U) Negative Negative [facility] Lipase measurementOrdered By : Kadie Gonzales on 12-06-2024 Lipase [Catalytic activity/Vol] 36 U/L Normal 13-75 [facility] Comment on above: Please note:LIPASE r evised reference range effective 22. New Lipase methodology. Expected to produce lower values than the previous assay method. NEW Reference Range: 13 - 75 U/L Result Comment: Plea se note: LIPASE revised reference range effective 22. New Lipase methodology. Expected to produce lower values than the previous assay method. NEW Reference Range: 13 - 75 U/L Performed By: #### L 500.2500 #### [facility] [address] [place], [address] MCV (mean corpuscular volume ) determinationOrdered By: Kadie Gonzales on 12-06-2024 MCV (RBC) [Entitic vol] 87.5 fL Normal 81-99 [facility] Comment on above: Performed By: #### L 500.2500 #### [facility] [address] [place], [address] Mean corpuscular hemoglobin (MCH) determinationOrdered By: Kadie Gonzales on 12-06-2024 MCH (RBC) [Entitic mass] 28.8 pg Normal 27.0-32.0 [facility] Comment on above: Performed By: #### L 500.2500 #### [facility] [address] [place], [address] Mean corpuscular hemoglobin concentration (MCHC) determinationOrdered By: Kadie Gonzales on 12-06-2024 MCHC (RBC) [Mass/Vol] 32.9 g/dL Normal 32-36 [facility] Comment on above: Performed By: #### L 500.2500 #### [facility] [address] [place], [address] Mean platelet volume determi nationOrdered By: Kadie Gonzales on 12-06-2024 Platelet mean volume (Bld) [Entitic vol] 9.9 fL Normal 6.2-12.0 [facility] Comment on above: Performed By: #### L 500.2500 #### [facility] [address] [place], [address] Microscopic analysis of urin e for red blood cells (RBC)Ordered By: Kadie Gonzales on 12-06-2024 Microscopic analysis of urine for red blood cells (RBC) 0 SEEN /hpf 0-5 [facility] Monocyte percentageOrdered B y: Kadie Gonzales on 12-06-2024 Monocytes/100 WBC (Bld) 7.7 % Normal 0-10 [facility] Comment on above: Performed By: #### L 500.2500 #### [facility] [address] [place], [address] Mucus LM Ql (Urine sed)Order ed By: Kadie Gonzales on 12-06-2024 Mucus Ql (Urine sed) 0 SEEN /hpf [facility] Neutrophil percentageOrdered By: Kadie Gonzales on 12-06-2024 Neutrophils/100 WBC (Bld) 60.7 % Normal 47-70 [facility] Comment on above: Performed By: #### L 500.2500 #### [facility] [address] [place], [address] Nitrite Test strip Ql (U)Ord ered By: Kadie Gonzales on 12-06-2024 Nitrite Ql (U) Negative Negative [facility] Nucleated red blood cell per centageOrdered By: Kadie Gonzales on 12-06-2024 Nucleated RBC/100 WBC (Bld) [Ratio] 0 % 0-5 [facility] Platelet countOrdered By: Agustin Gonzales on 12-06-2024 Platelets (Bld) [#/Vol] 265 10*3/uL Normal 150-450 [facility] Comment on above: Performed By: #### L 500.2500 #### [facility] [address] [place], [place], [id number] Potassium measurement (mass/ volume)Ordered By: Kadie Gonzales on 12-06-2024 Potassium (Unsp spec) [Mass/Vol] 3.9 mmol/L 3.3-5.1 [facility] ,Urineon 12-06-2024 Beta HCG ( test) Ql (U) Negative Normal [facility] Comment on above: Result Comment: Very dilute urine specimens, as indicated by a low specific gravity, may not contain artist representative levels of hCG. If is still suspected, a first morning urine specimen should be collected 48 hours later and tested. Performed By: #### L 500.2500 #### [facility] [address] [place], [place], [id number] Protein Test strip Ql (U)Ord ered By: Kadie Gonzales on 12-06-2024 Protein Ql (U) 15 mg/dl High Negative [facility] Serum creatinine measurement (mass/volume)Ordered By: Kadie Gonzales on 12-06-2024 Creatinine [Mass/Vol] 1.04 mg/dL Normal 0.70-1.20 [facility] Comment on above: Performed By: #### L 500.2500 #### [facility] [address] [place], [place], [id number] Serum globulin measurementOr dered By: Kadie Gonzales on 12-06-2024 Globulin (S) [Mass/Vol] 3.3 g/dL Normal 2.2-4.2 [facility] Comment on above: Performed By: #### L 500.2500 #### [facility] [address] [place], [place], [id number] Serum glucose measurement (m ass/volume)Ordered By: Kadie Gonzales on 12-06-2024 Glucose [Mass/Vol] 108 mg/dL High 70-99 [facility] Comment on above: Performed By: #### L 500.2500 #### [facility] [address] [place], [address] Serum or plasma alanine rios otransferase (ALT) measurementOrdered By: Kadie Gonzales on 12-06-2024 ALT [Catalytic activity/Vol] 10 U/L Normal <=34 [facility] Comment on above: Performed By: #### L 500.2500 #### [facility] [address] [place], [address] Serum or plasma albumin pedro luis urement (mass/volume)Ordered By: Kadie Gonzales on 12-06-2024 Albumin [Mass/Vol] 4.4 g/dL Normal 3.5-5.0 [facility] Comment on above: Performed By: #### L 500.2500 #### [facility] [address] [place], [address] Serum or plasma albumin/glob ulin mass ratioOrdered By: Kadie Gonzales on 12-06-2024 Albumin/Globulin [Mass ratio] 1.3 {ratio} Normal 0.9-2.4 [facility] Comment on above: Performed By: #### L 500.2500 #### [facility] [address] [place], [address] Serum or plasma alkaline pastor sphatase measurementOrdered By: Kadie Gonzales on 12-06-2024 ALP [Catalytic activity/Vol] 50 U/L 35-104 [facility] Serum or plasma calcium pedro luis urement (mass/volume)Ordered By: Kadie Gonzales on 12-06-2024 Calcium [Mass/Vol] 9.5 mg/dL Normal 7.6-11.0 [facility] Comment on above: Performed By: #### L 500.2500 #### [facility] [address] [place], [address] Serum or plasma urea nitroge n measurement (mass/volume)Ordered By: Kadie Gonzales on 12-06-2024 Urea nitrogen [Mass/Vol] 15 mg/dL Normal 4-19 [facility] Comment on above: Performed By: #### L 500.2500 #### [facility] [address] [place], [address] Sodium levelOrdered By: Adamaris Gonzales on 12-06-2024 Sodium [Moles/Vol] 139 mmol/L Normal 133-145 [facility] Comment on above: Performed By: #### L 500.2500 #### [facility] [address] [place], [address] Squamous epithelial cells de tection in urine sediment by light microscopyOrdered By: Kadie Gonzales on 12-06-2024 Epithelial cells.squamous LM Ql (Urine sed) 0 SEEN /hpf 5-10 [facility] Total proteinOrdered By: Jennifer Gonzales on 12-06-2024 Protein [Mass/Vol] 7.6 g/dL 5.9-8.4 [facility] Transitional cells detection in urine sediment by light microscopyOrdered By: Kadie Gonzales on 12-06-2024 Transitional cells LM Ql (Urine sed) 0-5 SEEN /hpf 0-5 [facility] Urinalysis, Completeon 12-06 EPI,TRANSITION 0-5 SEEN Normal 0-5 [facility] Comment on above: Order Comment: JORGE CTOR TO SPECIFY Performed By: #### L 500.2500 #### [facility] [address] [place], [address] (643 WBC 0-5 SEEN Normal 0-5 [facility] Comment on above: Order Comment: JORGE CTOR TO SPECIFY Performed By: #### L 500.2500 #### [facility] [address] [place], [address] BACTERIA 0 SEEN Normal None Seen [facility] Comment on above: Order Comment: COLLE CTOR TO SPECIFY Performed By: #### L 500.2500 #### [facility] [address] [place], [address] EPI,SQUAMOUS 0 SEEN Normal 5-10 [facility] Comment on above: Order Comment: JORGE CTOR TO SPECIFY Performed By: #### L 500.2500 #### [facility] [address] [place], [address] Mucus Ql (Urine sed) 0 SEEN Normal [facility] Comment on above: Order Comment: JORGE CTOR TO SPECIFY Performed By: #### L 500.2500 #### [facility] [address] [place], [address] RBC 0 SEEN Normal 0-5 [facility] Comment on above: Order Comment: JORGE CTOR TO SPECIFY Performed By: #### L 500.2500 #### [facility] [address] [place], [address] Urine clarityOrdered By: Jennifer Gonzales on 12-06-2024 Clarity (U) Clear Clear [facility] Urine color determinationOrd ered By: Kadie Gonzales on 12-06-2024 Color (U) Straw Yellow [facility] Urine glucose detectionOrder ed By: Kadie Gonzales on 12-06-2024 Glucose Ql (U) Normal mg/dl Normal [facility] Urine leukocyte esterase det ection by dipstickOrdered By: Kadie Gonzales on 12-06-2024 Leukocyte esterase Test strip Ql (U) 100 /ul High Negative [facility] Urine pHOrdered By: Kadie ambrocio on 12-06-2024 pH (U) 7.0 [pH] 5.0 - 8.0 [facility] Urine testOrdered By: Kadie Gonzales on 12-06-2024 HCG ( test) Ql (U) Negative [facility] Comment on above: Very dilute urine sp ecimens, as indicated by a low specificgravity, may not contain artist representative levels of hCG. If is still suspected, a first morning urinespecimen should be collected 48 hours later and tested. Urine sediment bacteria coun t by microscopy (number/high power field)Ordered By: Kadie Gonzales on 12-06-2024 Bacteria LM.HPF (Urine sed) [#/Area] 0 /[HPF] None Seen [facility] Urine specific gravity measu rementOrdered By: Kadie Gonzales on 12-06-2024 Specific gravity (U) [Rel density] 1.005 1.002-1.030 [facility] Urine urobilinogen measureme ntOrdered By: Kadie Gonzales on 12-06-2024 Urobilinogen Ql (U) Normal mg/dl Normal [facility] White blood cell (WBC) count Ordered By: Kadieleila Gonzales on 12-06-2024 WBC (Bld) [#/Vol] 10.5 10*3/uL Normal 4.4-11.0 [facility] Comment on above: Performed By: #### L 500.2499 #### [facility] [address] [place], [address] White blood cell countOrdere d By: Kadie Gonzales on 12-06-2024 White blood cell count 0-5 SEEN /hpf 0-5 [facility] PATEL w/ Reflex Mult Confirmon 12-03-2024 ANTI-DNA (DS)AB TNP Normal [facility] Comment on above: Performed By: #### L 400.2010 #### [facility] [address] [place], [address] ANTI-SS-A TNP Normal [facility] Comment on above: Performed By: #### L 400.2010 #### [facility] [address] [place], [address] ANTI-SS-B TNP Normal [facility] Comment on above: Performed By: #### L 400.2010 #### [facility] [address] [place], [address] Allergen, Food Profile 14on 12-02-2024 BEEF <0.10 Normal Class 0 [facility] Comment on above: Performed By: #### L 400.2010 #### [facility] [address] [place], [address] CHOCOLATE <0.10 Normal Class 0 [facility] Comment on above: Performed By: #### L 400.2010 #### [facility] [address] [place], [address] CODFISH <0.10 Normal Class 0 [facility] Comment on above: Performed By: #### L 400.2010 #### [facility] [address] [place], [address] COMMENT Comment Normal . [facility] Comment on above: Result Comment: Dia nogueira of Specific IgE Class Description of Class ----- < 0.10 0 Negative 0.10 - 0.31 0/I Equivocal/Low 0.32 - 0.55 I Low 0.56 - 1.40 II Moderate 1.41 - 3.90 III High 3.91 - 19.00 IV Very High 19.01 - 100.00 V Very High >100.00 Very High Performed By: #### L 400.2010 #### [facility] [address] [place], [address] CORN <0.10 Normal Class 0 [facility] Comment on above: Performed By: #### L 400.2010 #### [facility] [address] [place], [address] EGG, WHOLE <0.10 Normal Class 0 [facility] Comment on above: Performed By: #### L 400.2010 #### [facility] [address] [place], [address] MILK (COW) <0.10 Normal Class 0 [facility] Comment on above: Performed By: #### L 400.2010 #### [facility] [address] [place], [address] MUSSELS <0.10 Normal Class 0 [facility] Comment on above: Performed By: #### L 400.2010 #### [facility] [address] [place], [address] PEANUT <0.10 Normal Class 0 [facility] Comment on above: Performed By: #### L 400.2010 #### [facility] [address] [place], [address] PORK <0.10 Normal Class 0 [facility] Comment on above: Performed By: #### L 400.2010 #### [facility] [address] [place], [address] SALMON <0.10 Normal Class 0 [facility] Comment on above: Performed By: #### L 400.2010 #### [facility] [address] [place], [address] SHRIMP <0.10 Normal Class 0 [facility] Comment on above: Performed By: #### L 400.2010 #### [facility] [address] [place], [address] SOYBEAN <0.10 Normal Class 0 [facility] Comment on above: Performed By: #### L 400.2010 #### [facility] [address] [place], [address] TUNA <0.10 Normal Class 0 [facility] Comment on above: Performed By: #### L 400.2010 #### [facility] [address] [place], [address] WHEAT <0.10 Normal Class 0 [facility] Comment on above: Performed By: #### L 400.2010 #### [facility] [address] [place], [address] Calprotectin, Stoolon [address] 49 ug/g Normal 0-120 [facility] Comment on above: Result Comment: Conc entration Interpretation Follow-Up < 5 - 50 ug/g Normal None >50 -120 ug/g Borderline Re-evaluate in 4-6 weeks >120 ug/g Abnormal Repeat as clinically indicated Performed at: [facility] [id number] Sales Order Administrator: Nita Marin MD, Phone: [phone] Performed By: #### L 500.2500 #### [facility] [address] [facility] [place], [place], [address] L7000.0750on 12-01-2024 P ELASTASE,FECA > 800 Normal >200 [facility] Comment on above: Result Comment: Resu lt Units: ug Elast./g Severe Pancreatic Insufficiency: <100 Moderate Pancreatic Insufficiency: 100 - 200 Normal: >200 Performed at: [address] [id number] Sales Order Administrator: Nita Marin MD, Phone: [phone] Performed By: #### L 500.2500 #### [facility] [address] [facility] [place], [place], [id number] Calprotectin stoolOrdered By : Mayelin Luna on 11-28-2024 Calprotectin stool 49 ug/g 0-120 [facility] Comment on above: Concentration Interp retation Follow-Up< 5 - 50 ug/g Normal None>50 -120 ug/g Borderline Re-evaluate in 4-6 weeks >120 ug/g Abnormal Repeat as clinically indicatedPerformed at: [facility] [id number] Director: Nita Marin MD, Phone: [phone] Hepatitis B Surface Antibody on 11-28-2024 HEP B Surf Ab Non-Reactive Normal [facility] Comment on above: Order Comment: JUD Workman ADD ON HEP B antiBODY FROM TODAY. FG4 3F. FG5 1G. Result Comment: <8.5 mIU/mL: Non-Reactive 8.5<= x <11.5 mIU/mL: Indeterminate >=11.5 mIU/mL: Reactive Non Reactive: Inconsistent with immunity less than <10 mIU/mL Reactive: Consistent with immunity greater than or equal to 10 mIU/mL Performed By: #### P SUIV #### [facility] [address] [facility] [place], [place], [address] [id number] 11-28-2024 HEP B Surf Ag Non-Reactive Normal Nonreactive [facility] Comment on above: Result Comment: Reac tive: Presumptive evidence of HBV. Repeatedly reactive samples must be confirmed using a neutralization test ([employer] HBsAg Confirmatory Test) Non-Reactive: HBsAg not detected; does not exclude the possibility of exposure to HBV Performed By: #### P SUIV #### [facility] [address] [place], [place], [address] Laboratory - Microbiology an d Antimicrobial susceptibilityOrdered By: Bonnie Flores on 11-28-2024 HBV surface Ag Ql (S) Non-Reactive Nonreactive [facility] Comment on above: Reactive: Presumptiv e evidence of HBV. Repeatedly reactive samples must be confirmed using a neutralization test ([employer] HBsAg Confirmatory Test)Non-Reactive: HBsAg not detected; does not exclude the possibility of exposure to HBV Serum hepatitis B virus surf selvin antibody detectionOrdered By: Bonnie Flores on 11-28-2024 HBV surface Ab Ql (S) Non-Reactive [facility] Comment on above: <8.5 mIU/mL: Non-[place] ctive8.5<= x <11.5 mIU/mL: Indeterminate>=11.5 mIU/mL: Reactive Non Reactive: Inconsistent with immunity less than <10 mIU/mL Reactive: Consistent with immunity greater than or equal to 10 mIU/mL Stool pancreatic elastase me asurement (mass/mass)Ordered By: Mayelin Luna on 11-28-2024 Elastase.pancreatic (Stl) [Mass/Mass] > 800 >200 [facility] Comment on above: Result Units: ug Zaira st./g Severe Pancreatic Insufficiency: <100 Moderate Pancreatic Insufficiency: 100 - 200 Normal: >200Performed at: - [facility] [id number] Director: Nita Marin MD, Phone: [phone] Absolute lymphocyte countOrd ered By: Mayelin Jeremy on 11-27-2024 Lymphocytes Auto (Unsp spec) [#/Vol] 1.80 10*3/uL 0.83-4.51 [facility] Absolute neutrophil countOrd ered By: Mayelin Luna on 11-27-2024 Neutrophils (Bld) [#/Vol] 4.3 10*3/uL 2.0-7.7 [facility] Anion gap in Serum or Plasma Ordered By: Mayelin Luna on 11-27-2024 Anion gap [Moles/Vol] 11 mmol/L 5- [facility] Automated lymphocyte count a s percentage of total leukocytesOrdered By: Mayelin Luna on 11-27-2024 Lymphocytes/100 WBC Auto (Unsp spec) 26.6 % - [facility] BUN/creatinine ratioOrdered By: Mayelin Luna on 11-27-2024 Urea nitrogen/Creatinine [Mass ratio] 12.5 mg/mg 10- [facility] Basophil percentageOrdered B y: Mayelin Luna on 11-27-2024 Basophils/100 WBC (Bld) 0.7 % 0-1 [facility] Bilirubin, totalOrdered By: Mayelin Luna on 11-27-2024 Bilirubin [Mass/Vol] 0.36 mg/dL 0.00-1.30 [facility] CBC W/Diff, Automatedon 11-14 Absolute Lymph 1.80 X10 3/uL Normal 0.83-4.51 [facility] Comment on above: Performed By: #### L 400.2010 #### [facility] [address] [facility] [place], [address] Absolute Neut 4.3 X10 3/uL Normal 2.0-7.7 [facility] Comment on above: Performed By: #### L 400.2010 #### [facility] [address] [place], [address] Basophils/100 WBC (Bld) 0.7 % Normal 0-1 [facility] Comment on above: Performed By: #### L 400.2010 #### [facility] [address] [place], [address] Eosinophils/100 WBC (Bld) 1.5 % Normal 0-5 [facility] Comment on above: Performed By: #### L 400.2010 #### [facility] [address] [place], [address] Erythrocyte distribution width (RBC) [Ratio] 13.0 % Normal 11.6-14.6 [facility] Comment on above: Performed By: #### L 400.2010 #### [facility] [address] [place], [address] Hematocrit (Bld) [Volume fraction] 40.7 % Normal 37-47 [facility] Comment on above: Performed By: #### L 400.2010 #### [facility] [address] [place], [address] Hemoglobin (Bld) [Mass/Vol] 13.0 g/dL Normal 12.0-15.0 [facility] Comment on above: Performed By: #### L 400.2010 #### [facility] [address] [place], [address] IG% 0.300 Normal 0.0-0.9 [facility] Comment on above: Result Comment: IG% - Immature Granulocytes (promyelocytes, myelocytes and metamyelocytes) > 1% indicates that a LEFT SHIFT is Present. Performed By: #### L 400.2010 #### [facility] [address] [place], [address] Lymphocytes/100 WBC (Bld) 26.6 % Normal 19-41 [facility] Comment on above: Performed By: #### L 400.2010 #### [facility] [address] [place], [address] MCH (RBC) [Entitic mass] 28.5 pg Normal 27.0-32.0 [facility] Comment on above: Performed By: #### L 400.2010 #### [facility] [address] [place], [address] MCHC (RBC) [Mass/Vol] 31.9 g/dL Low 32-36 [facility] Comment on above: Performed By: #### L 400.2010 #### [facility] [address] [place], [address] MCV (RBC) [Entitic vol] 89.3 fL Normal 81-99 [facility] Comment on above: Performed By: #### L 400.2010 #### [facility] [address] [place], [address] Monocytes/100 WBC (Bld) 7.8 % Normal 0-10 [facility] Comment on above: Performed By: #### L 400.2010 #### [facility] [address] [place], [address] Neutrophils/100 WBC (Bld) 63.1 % Normal 47-70 [facility] Comment on above: Performed By: #### L 400.2010 #### [facility] [address] [place], [address] Nucleated RBC (Bld) [#/Vol] 0 10*3/uL Normal 0-5 [facility] Comment on above: Performed By: #### L 400.2010 #### [facility] [address] [place], [address] Platelet mean volume (Bld) [Entitic vol] 10.0 fL Normal 6.2-12.0 [facility] Comment on above: Performed By: #### L 400.2010 #### [facility] [address] [place], [address] Platelets (Bld) [#/Vol] 267 10*3/uL Normal 150-450 [facility] Comment on above: Performed By: #### L 400.2010 #### [facility] [address] [place], [address] RBC (Bld) [#/Vol] 4.56 10*6/uL Normal 4.2-5.4 [facility] Comment on above: Performed By: #### L 400.2010 #### [facility] [address] [place], [address] RDW SD 42.6 fl Normal 35.1-43.9 [facility] Comment on above: Performed By: #### L 400.2010 #### [facility] [address] [place], [address] WBC (Bld) [#/Vol] 6.8 10*3/uL Normal 4.4-11.0 [facility] Comment on above: Performed By: #### L 400.2010 #### [facility] [address] [place], [address] CRPon 11-27-2024 C-REACTIVE PROT < 3.00 Normal 0.0-3.0 [facility] Comment on above: Performed By: #### L 400.2010 #### [facility] [address] [place], [address] Carbon dioxide, total [Moles /volume] in Central venous bloodOrdered By: Mayelin Luna on 11-27-2024 CO2 [Moles/Vol] 23.9 mmol/L 21.0-32.0 [facility] Chloride assayOrdered By: Eduardo Luna on 11-27-2024 Chloride [Moles/Vol] 103 mmol/L 98-108 [facility] Comprehensive Metabolic Prof ilon 11-27-2024 Albumin [Mass/Vol] 4.2 g/dL Normal 3.5-5.0 [facility] Comment on above: Performed By: #### L 400.2010 #### [facility] [address] [place], [address] Albumin/Globulin [Mass ratio] 1.2 {ratio} Normal 0.9-2.4 [facility] Comment on above: Performed By: #### L 400.2010 #### [facility] [address] [place], [address] ALK PHOS 54 U/L Normal 35-104 [facility] Comment on above: Performed By: #### L 400.2010 #### [facility] [address] [place], [address] ALT [Catalytic activity/Vol] 12 U/L Normal <=34 [facility] Comment on above: Performed By: #### L 400.2010 #### [facility] [address] [place], [address] AST [Catalytic activity/Vol] 22 U/L Normal <=31 [facility] Comment on above: Performed By: #### L 400.2010 #### [facility] [address] [place], [address] Bilirubin [Mass/Vol] 0.36 mg/dL Normal 0.00-1.30 [facility] Comment on above: Performed By: #### L 400.2010 #### [facility] [address] [place], [address] BUN/CRE 12.5 RATIO Normal 10-20 [facility] Comment on above: Performed By: #### L 400.2010 #### [facility] [address] [place], [address] Calcium [Mass/Vol] 9.5 mg/dL Normal 7.6-11.0 [facility] Comment on above: Performed By: #### L 400.2010 #### [facility] [address] [place], [address] Chloride [Moles/Vol] 103 mmol/L Normal 98-108 [facility] Comment on above: Performed By: #### L 400.2010 #### [facility] [address] [place], [address] CO2 [Moles/Vol] 23.9 mmol/L Normal 21.0-32.0 [facility] Comment on above: Performed By: #### L 400.2010 #### [facility] [address] [place], [address] Creatinine [Mass/Vol] 0.90 mg/dL Normal 0.70-1.20 [facility] Comment on above: Performed By: #### L 400.2010 #### [facility] [address] [place], [address] GAP 11 Normal 5-15 [facility] Comment on above: Performed By: #### L 400.2010 #### [facility] [address] [place], [address] GFR/1.73 sq M.predicted among non-blacks MDRD (S/P/Bld) [Vol rate/Area] 94 mL/min/{1.73_m2} Normal >60 [facility] Comment on above: Result Comment: mL/m in/1.73m2 CKD-EPI Creatinine Equation (2020) Performed By: #### L 400.2010 #### [facility] [address] [place], [address] Globulin (S) [Mass/Vol] 3.4 g/dL Normal 2.2-4.2 [facility] Comment on above: Performed By: #### L 400.2010 #### [facility] [address] [place], [address] Glucose [Mass/Vol] 83 mg/dL Normal 70-99 [facility] Comment on above: Performed By: #### L 400.2010 #### [facility] [address] [place], [address] Potassium [Moles/Vol] 3.9 mmol/L Normal 3.3-5.1 [facility] Comment on above: Performed By: #### L 400.2010 #### [facility] [address] [place], [place], [address] Sodium [Moles/Vol] 138 mmol/L Normal 133-145 [facility] Comment on above: Performed By: #### L 400.2010 #### [facility] [address] [place], [address] T PROT 7.5 g/dL Normal 5.9-8.4 [facility] Comment on above: Performed By: #### L 400.2010 #### [facility] [address] [place], [address] Urea nitrogen [Mass/Vol] 11 mg/dL Normal 4-19 [facility] Comment on above: Performed By: #### L 400.2010 #### [facility] [address] [place], [place], [address] Eosinophil percentageOrdered By: Mayelin Luna on 11-27-2024 Eosinophils/100 WBC (Bld) 1.5 % 0-5 [facility] Erythrocyte distribution wid th ratioOrdered By: Mayelin Luna on 11-27-2024 Erythrocyte distribution width (RBC) [Ratio] 13.0 % 11.6-14.6 [facility] Erythrocyte distribution wid th standard deviationOrdered By: Mayelin Luna on 11-27-2024 Erythrocyte distribution width (RBC) [Ratio] 42.6 fl 35.1-43.9 [facility] Gastroenterology Visit Repor ton 11-27-2024 Gastroenterology Visit Report [facility] Gastroenterology [address] [place] [address] OFFICE VISIT Date of Service: 11/27/24 MR#: [id number] Acct: [id number] Name: AMELIE NAIK Rep #: [id number] : 2005 Provider: PARIS lopez Age/Sex: 19/F Location: [facility] Status: Signed Intake Vital Signs 08/19/24 08:05 [...] to the office today for establishment with [facility] regarding concerns for possible inflammatory bowel disease [...] to inspe (more content not included)... Normal [facility] Glomerular filtration rate ( GFR) estimation/1.73 sq m using serum, plasma, or whole bOrdered By: Mayelin Luna on 11-27-2024 GFR/1.73 sq M.predicted among non-blacks MDRD (S/P/Bld) [Vol rate/Area] 94 mL/min/{1.73_m2} >60 [facility] Comment on above: mL/min/1.73m2 CKD-EP I Creatinine Equation (2020) Hematocrit Auto (Bld) [Volum e fraction]Ordered By: Mayelin Luna on 11-27-2024 Hematocrit (Bld) [Volume fraction] 40.7 % 37-47 [facility] Hemoglobin measurementOrdere d By: Mayelin Luna on 11-27-2024 Hemoglobin (Bld) [Mass/Vol] 13.0 g/dL 12.0-15.0 [facility] Immature granulocytes/100 WB C Auto (Bld)Ordered By: Mayelin Luna on 11-27-2024 Immature granulocytes/100 WBC (Bld) 0.300 % 0.0-0.9 [facility] Comment on above: IG% - Immature Granu locytes (promyelocytes, myelocytes and metamyelocytes) > 1% indicates that a LEFT SHIFT is Present. Laboratory - Chemistry and C hemistry - challengeOrdered By: Mayelin Luna on 11-27-2024 AST [Catalytic activity/Vol] 22 U/L <32 [facility] - Miscellaneous t estsOrdered By: Mayelin Luna on 11-27-2024 Service comment (Unsp spec) [Interp] Comment . [facility] Comment on above: Levels of Specific I [...] (RBC) [Entitic vol] 89.3 fL 81-99 [facility] Mean corpuscular hemoglobin (MCH) determinationOrdered By: Mayelin Luna on 11-27-2024 MCH (RBC) [Entitic mass] 28.5 pg 27.0-32.0 [facility] Mean corpuscular hemoglobin concentration (MCHC) determinationOrdered By: Mayelin Luna on 11-27-2024 MCHC (RBC) [Mass/Vol] 31.9 g/dL Low 32-36 [facility] Mean platelet volume determi nationOrdered By: Mayelin Luna on 11-27-2024 Platelet mean volume (Bld) [Entitic vol] 10.0 fL 6.2-12.0 [facility] Monocyte percentageOrdered B y: Mayelin Luna on 11-27-2024 Monocytes/100 WBC (Bld) 7.8 % 0-10 [facility] Neutrophil percentageOrdered By: Mayelin Luna on 11-27-2024 Neutrophils/100 WBC (Bld) 63.1 % 47-70 [facility] Nucleated red blood cell per centageOrdered By: Mayelin Luna on 11-27-2024 Nucleated RBC/100 WBC (Bld) [Ratio] 0 % 0-5 [facility] Platelet countOrdered By: Eduardo Luna on 11-27-2024 Platelets (Bld) [#/Vol] 267 10*3/uL 150-450 [facility] Potassium measurement (mass/ volume)Ordered By: Mayelin Luna on 11-27-2024 Potassium (Unsp spec) [Mass/Vol] 3.9 mmol/L 3.3-5.1 [facility] RBC Auto (Bld) [#/Vol]Ordere d By: Mayelin Luna on 11-27-2024 RBC (Bld) [#/Vol] 4.56 10*6/uL 4.2-5.4 [facility] Serum DNA double strand anti body assay (units/volume)Ordered By: Mayelin Luna on 11-27-2024 DNA double strand Ab Qn (S) [facility] Comment on above: Test not performed Serum Scl-70 antibody assay (units/volume)Ordered By: Mayelin Luna on 11-27-2024 SCL-70 extractable nuclear Ab Qn (S) [facility] Comment on above: Test not performed Serum beef IgE antibody assa y (units/volume)Ordered By: Mayelin Luna on 11-27-2024 Beef IgE Qn (S) <0.10 kU/L Class 0 [facility] Serum codfish IgE antibody a ssay (units/volume)Ordered By: Mayelin Luna on 11-27-2024 Codfish IgE Qn (S) <0.10 kU/L Class 0 [facility] Serum corn IgE antibody assa y (units/volume)Ordered By: Mayelin Luna on 11-27-2024 [place] IgE Qn (S) <0.10 kU/L Class 0 [facility] Serum cow milk IgE antibody assay (units/volume)Ordered By: Mayelin Luna on 11-27-2024 Cow milk IgE Qn (S) <0.10 kU/L Class 0 [facility] Serum creatinine measurement (mass/volume)Ordered By: Mayelin Luna on 11-27-2024 Creatinine [Mass/Vol] 0.90 mg/dL 0.70-1.20 [facility] Serum globulin measurementOr dered By: Mayelin Luna on 11-27-2024 Globulin (S) [Mass/Vol] 3.4 g/dL 2.2-4.2 [facility] Serum glucose measurement (m ass/volume)Ordered By: Mayelin Luna on 11-27-2024 Glucose [Mass/Vol] 83 mg/dL 70-99 [facility] Serum or plasma C reactive p rotein measurement (mass/volume)Ordered By: Mayelin Luna on 11-27-2024 CRP [Mass/Vol] mg/L 0.0-3.0 [facility] Serum or plasma alanine rios otransferase (ALT) measurementOrdered By: Mayelin Luna on 11-27-2024 ALT [Catalytic activity/Vol] 12 U/L <35 [facility] Serum or plasma albumin pedro luis urement (mass/volume)Ordered By: Mayelin Luna on 11-27-2024 Albumin [Mass/Vol] 4.2 g/dL 3.5-5.0 [facility] Serum or plasma albumin/glob ulin mass ratioOrdered By: Mayelin Luna on 11-27-2024 Albumin/Globulin [Mass ratio] 1.2 {ratio} 0.9-2.4 [facility] Serum or plasma alkaline pastor sphatase measurementOrdered By: Mayelin Luna on 11-27-2024 ALP [Catalytic activity/Vol] 54 U/L 35-104 [facility] Serum or plasma calcium pedro luis urement (mass/volume)Ordered By: Mayelin Luna on 11-27-2024 Calcium [Mass/Vol] 9.5 mg/dL 7.6-11.0 [facility] Serum or plasma urea nitroge n measurement (mass/volume)Ordered By: Mayelin Luna on 11-27-2024 Urea nitrogen [Mass/Vol] 11 mg/dL 4-19 [facility] Serum peanut IgE antibody as say (units/volume)Ordered By: Mayelin Luna on 11-27-2024 Peanut IgE Qn (S) <0.10 kU/L Class 0 [facility] Serum pork IgE antibody assa y (units/volume)Ordered By: Mayelin Luna on 11-27-2024 Pork IgE Qn (S) <0.10 kU/L Class 0 [facility] Serum salmon IgE antibody as say (units/volume)Ordered By: Mayelin Luna on 11-27-2024 [place] IgE Qn (S) <0.10 kU/L Class 0 [facility] Serum soybean IgE antibody a ssay (units/volume)Ordered By: Mayelin Luna on 11-27-2024 Soybean IgE Qn (S) <0.10 kU/L Class 0 [facility] Serum tuna IgE antibody assa y (units/volume)Ordered By: Mayelin Luna on 11-27-2024 Tuna IgE Qn (S) <0.10 kU/L Class 0 [facility] Serum wheat IgE antibody ass ay (units/volume)Ordered By: Mayelin Luna on 11-27-2024 Wheat IgE Qn (S) <0.10 kU/L Class 0 [facility] Serum whole egg IgE antibody assay (units/volume)Ordered By: Mayelin Luna on 11-27-2024 Whole Egg IgE Qn (S) <0.10 kU/L Class 0 [facility] Sodium levelOrdered By: Yamilet Luna on 11-27-2024 Sodium [Moles/Vol] 138 mmol/L 133-145 [facility] Total proteinOrdered By: Waldo Luna on 11-27-2024 Protein [Mass/Vol] 7.5 g/dL 5.9-8.4 [facility] White blood cell (WBC) count Ordered By: Mayelin Luna on 11-27-2024 WBC (Bld) [#/Vol] 6.8 10*3/uL 4.4-11.0 [facility] 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 08-19-2024 Emer[employer] 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 Office Visit Report [facility] [address], [address] [place] [address] OFFICE VISIT Date of Service: 08/19/24 MR#: [id number] Acct: [id number] Name: AMELIE NAIK Rep #: [id number] : 2005 Provider: PARIS garcia Age/Sex: 19/F Location: [facility] Status: Signed Intake Vital Signs 02/04/24 17:50 08/19/24 08:05 Height 5 ft 6 in 5 ft 6 in Weight: 136 lb 2 oz BMI 21.9 BP 114/72 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: No Is patient in pain?: No Allergies No Known Allergies Allergy (Verified 08/19/24 08:09) Medications ???Medication ???Instructions ???Recorded ???Confirmed ???Type norgestimate 0.25 mg-ethinyl 1 tab PO QDAY #84 tabs 08/19/24 Rx estradiol 35 mcg tablet (Sprintec (28)) Is last menstrual period known: Yes Last Menstrual Period: 08/03/24 Post menopausal: No Patient : No : No Control [facility] Medical History Acne Surgical History H/O shoulder [...] oriented to person and oriented to place HENMT Head: normal to inspection Neck Neck: normal [...] year, prn with problems. 08/19/24814 Date Trista Hammonds Signature: Date (if applicable) [facility] ([facility] ) AMELIE NAIK ([id number]) 5 F Date Time Provider Department 05/19/24 11:15 AM HASMUKH HOUSTON [facility] During your visit today, we recorded the following information about you: Temperature Pulse Respiration Blood pressure 97.4 degrees 90/minute 21/minute 110/74 Weight 62.2 kg Hasmukh Houston APRN.TRAVEL CONSULTANT 05/19/2024 11:38 AM Signed Subjective HPI Nontoxic-appearing [...] of care. This note was generated using [employer] software. It may contain errors in wording, punctuation, or spelling. Hasmukh Houston APRN.TRAVEL CONSULTANT Allergies As of Date: 05/19/2024 (No Known Allergies) Date Reviewed: 05/19/2024 Reviewed by: Hasmukh Houston APRN.TRAVEL CONSULTANT - Fully Assessed Reason for Visit: Cough [28] Cmt: Chest congestion, YI x 4 days Primary Visit Diagnosis:Viral illness [B34.9] Order(s):oxymetazolin e (AFRIN, OXYMETAZOLINE,) 0.05 % nasal sprayUse 2 Sprays in each nostril tw (more content not included)... Normal [facility] Basic Metabolic Profile (BMP )on 02-08-2024 BUN/CRE 8.8 RATIO Low 10-20 [facility] Comment on above: Performed By: #### L 500.2500 #### [facility] [address] [place], [address] CA,Total 9.0 mg/dL Normal 8.5-10.1 [facility] Comment on above: Performed By: #### L 500.2500 #### [facility] [address] [place], [address] Chloride [Moles/Vol] 110 mmol/L High 98-107 [facility] Comment on above: Performed By: #### L 500.2500 #### [facility] [address] [place], [address] CO2 [Moles/Vol] 26.0 mmol/L Normal 21.0-32.0 [facility] Comment on above: Performed By: #### L 500.2500 #### [facility] [address] [place], [address] Creatinine [Mass/Vol] 0.91 mg/dL Normal 0.55-1.02 [facility] Comment on above: Result Comment: The validity of the calculated GFR GFRAA in patients over 70 years has not been determined. Clinical correlation is essential. Performed By: #### L 500.2500 #### [facility] [address] [place], [address] EST GFR - AA 103 mL/min Normal >60 [facility] Comment on above: Result Comment: Afri can [place] Islander GFR Calc Performed By: #### L 500.2500 #### [facility] [address] [place], [address] GAP 3 Low 5-15 [facility] Comment on above: Performed By: #### L 500.2500 #### [facility] [address] [place], [address] GFR/1.73 sq M.predicted among non-blacks MDRD (S/P/Bld) [Vol rate/Area] 85 mL/min/{1.73_m2} Normal >60 [facility] Comment on above: Result Comment: Non- GFR Calc Performed By: #### L 500.2500 #### [facility] [address] [place], [address] Glucose [Mass/Vol] 88 mg/dL Normal 74-106 [facility] Comment on above: Performed By: #### L 500.2500 #### [facility] [address] [place], [address] Potassium [Moles/Vol] 3.7 mmol/L Normal 3.5-5.1 [facility] Comment on above: Performed By: #### L 500.2500 #### [facility] [address] [place], [address] Sodium [Moles/Vol] 140 mmol/L Normal 136-145 [facility] Comment on above: Performed By: #### L 500.2500 #### [facility] [address] [place], [address] Urea nitrogen [Mass/Vol] 8 mg/dL Normal 7-18 [facility] Comment on above: Performed By: #### L 500.2500 #### [facility] [address] [place], [address] Basic Metabolic Profile (BMP )on 02-04-2024 BUN/CRE 14.7 RATIO Normal 10-20 [facility] Comment on above: Performed By: #### L 500.2500 #### [facility] [address] [place], [address] CA,Total 9.1 mg/dL Normal 8.5-10.1 [facility] Comment on above: Performed By: #### L 500.2500 #### [facility] [address] [place], [address] Chloride [Moles/Vol] 103 mmol/L Normal 98-107 [facility] Comment on above: Performed By: #### L 500.2500 #### [facility] [address] [place], [address] CO2 [Moles/Vol] 26.0 mmol/L Normal 21.0-32.0 [facility] Comment on above: Performed By: #### L 500.2500 #### [facility] [address] [place], [address] Creatinine [Mass/Vol] 1.16 mg/dL High 0.55-1.02 [facility] Comment on above: Result Comment: The validity of the calculated GFR GFRAA in patients over 70 years has not been determined. Clinical correlation is essential. Performed By: #### L 500.2500 #### [facility] [address] [place], [address] ECRCL 71.05 ml/min Normal [facility] Comment on above: Performed By: #### L 500.2500 #### [facility] [address] [place], [address] EST GFR - AA 77 mL/min Normal >60 [facility] Comment on above: Result Comment: Afri can [place] GFR Calc Performed By: #### L 500.2500 #### [facility] [address] [place], [address] GAP 6 Normal 5-15 [facility] Comment on above: Performed By: #### L 500.2500 #### [facility] [address] [place], [address] GFR/1.73 sq M.predicted among non-blacks MDRD (S/P/Bld) [Vol rate/Area] 64 mL/min/{1.73_m2} Normal >60 [facility] Comment on above: Result Comment: Non- GFR Calc Performed By: #### L 500.2500 #### [facility] [address] [place], [address] Glucose [Mass/Vol] 86 mg/dL Normal 74-106 [facility] Comment on above: Performed By: #### L 500.2500 #### [facility] [address] [place], [address] Potassium [Moles/Vol] 3.6 mmol/L Normal 3.5-5.1 [facility] Comment on above: Performed By: #### L 500.2500 #### [facility] [address] [place], [address] Sodium [Moles/Vol] 135 mmol/L Low 136-145 [facility] Comment on above: Performed By: #### L 500.2500 #### [facility] [address] [place], [address] Urea nitrogen [Mass/Vol] 17 mg/dL Normal 7-18 [facility] Comment on above: Performed By: #### L 500.2500 #### [facility] [address] [place], [address] Emergency Department Summary on 02-04-2024 Emergency Department Summary [facility] Medical Records Department [address] [place] [address] Emergency Department Summary 02/04/24 MR#: [id number] Acct: [id number] Name: AMELIE NAIK Rep #: [id number] : 2005 19 From: Sebastián Hankins MD [...] symptoms: No Recent Illness/Hospitalizati on: No PFSH PFS Medical History Acne Home Medications ???Medication ???Instructions [...] Room Air (more content not included)... Normal [facility] Urinalysis, Routine (Dipstic k)on 02-04-2024 BILIRUBIN URINE 1 mg/dL Abnormal Negative [facility] Comment on above: Order Comment: COLOR OF URINE MAY AFFECT DIPSTICK RESULTS. CLEAN CATCH Result Comment: COLO R OF URINE MAY AFFECT DIPSTICK RESULTS. Performed By: #### L 400.2010 #### [facility] [address] [place], [address] Clarity (U) Cloudy Normal Clear [facility] Comment on above: Order Comment: COLOR OF URINE MAY AFFECT DIPSTICK RESULTS. CLEAN CATCH Performed By: #### L 400.2010 #### [facility] [address] [place], [place], [id number] Color (U) Red Normal [facility] Comment on above: Order Comment: COLOR OF URINE MAY AFFECT DIPSTICK RESULTS. CLEAN CATCH Performed By: #### L 400.2010 #### [facility] [address] [place], [place], [id number] GLUCOSE, UR Normal Normal Normal [facility] Comment on above: Order Comment: COLOR OF URINE MAY AFFECT DIPSTICK RESULTS. CLEAN CATCH Performed By: #### L 400.2010 #### [facility] [address] [place], [address] KETONE UR 50 mg/dl Abnormal Negative [facility] Comment on above: Order Comment: COLOR OF URINE MAY AFFECT DIPSTICK RESULTS. CLEAN CATCH Performed By: #### L 400.2010 #### [facility] [address] [place], [address] LEUK ESTERASE 500 /ul Abnormal Negative [facility] Comment on above: Order Comment: COLOR OF URINE MAY AFFECT DIPSTICK RESULTS. CLEAN CATCH Performed By: #### L 400.2010 #### [facility] [address] [place], [address] Nitrite Ql (U) Negative Normal Negative [facility] Comment on above: Order Comment: COLOR OF URINE MAY AFFECT DIPSTICK RESULTS. CLEAN CATCH Performed By: #### L 400.2010 #### [facility] [address] [place], [address] OCCULT BLOOD-UR 250 /ul Abnormal Negative [facility] Comment on above: Order Comment: COLOR OF URINE MAY AFFECT DIPSTICK RESULTS. CLEAN CATCH Performed By: #### L 400.2010 #### [facility] [address] [place], [address] pH UR 6.0 Normal 5.0 - 8.0 [facility] Comment on above: Order Comment: COLOR OF URINE MAY AFFECT DIPSTICK RESULTS. CLEAN CATCH Performed By: #### L 400.2010 #### [facility] [address] [place], [address] PROT DIPSTX 100 mg/dl Abnormal Negative [facility] Comment on above: Order Comment: COLOR OF URINE MAY AFFECT DIPSTICK RESULTS. CLEAN CATCH Performed By: #### L 400.2010 #### [facility] [address] [place], [address] SP.GR. DIPSTX 1.020 Normal 1.002-1.030 [facility] Comment on above: Order Comment: COLOR OF URINE MAY AFFECT DIPSTICK RESULTS. CLEAN CATCH Performed By: #### L 400.2010 #### [facility] [address] [place], [place], [address] UROBILI 1 mg/dl Abnormal Normal [facility] Comment on above: Order Comment: COLOR OF URINE MAY AFFECT DIPSTICK RESULTS. CLEAN CATCH Performed By: #### L 400.2010 #### [facility] [address] [place], [place], [address] POCT Group A Streptococcus, PCR manually resultedon 12-25-2023 S. pyogenes DNA MARKUS+probe Ql (Throat) Not detected Not Detected [facility] Work Phone: [facility] Work Phone: POCT SARS-COV-2/FLU/RSV PCR SYMPTOMATIC manually resultedOrdered By: Liliana Hernandez on 12-25-2023 FLUAV RNA MARKUS+probe Ql (Resp) Not detected Not Detected [facility] FLUBV RNA MARKUS+probe Ql (Resp) Not detected Not Detected [facility] RSV RNA MARKUS+probe Ql (Resp) Not detected Not Detected [facility] SARS-CoV-2 (COVID-19) RNA MARKUS+probe Ql (Resp) Not detected Not Detected [facility] Progress Noteon 11-22-2022 Marketing Underwriter Authentication Interface Message Text Orthopedic Sports Medicine [...] 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 She reports she did well over the [...] medications on file as of 11/22/2022. Normal [facility] Progress Noteon 06-21-2022 Marketing Underwriter Authentication Interface Message Text This patient was [...] follow-up in approximately 5 months time. Normal [facility] Marketing Underwriter Authentication Interface Message Text Date of service: June 21, 2022 Patient's name: Amelie Naik CSN: [id number] DIAGNOSIS: Follow-up Right shoulder arthroscopic capsulorrhaphy. HISTORY [...] Smoking status: Never Passive exposure: Never Normal [facility] Progress Noteon 05-10-2022 Marketing Underwriter Authentication Interface Message Text This patient was [...] weeks time for progression of activities. Normal [facility] Basophil percentageon 2021 C. trachomatis DNA MARKUS+probe Ql (Unsp spec) Negative Negative [facility] Work Phone: Progress Noteon 03-29-2022 Marketing Underwriter Authentication Interface Message Text Date of service: March 29, 2022 Patient's name: Amelie Naik CSN: [id number] DIAGNOSIS: Follow-up Right shoulder arthroscopic capsulorrhaphy. 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 Normal [facility] Progress Noteon 02-14-2022 Marketing Underwriter Authentication Interface Message Text Date of service: February 14, 2022 Patient's name: Amelie Naik CSN: [id number] DIAGNOSIS: Follow-up Right shoulder arthroscopic capsulorrhaphy. HISTORY [...] Smoking status: Never Passive exposure: Never Normal [facility] Progress Noteon 01-03-2022 Marketing Underwriter Authentication Interface Message Text Date of service: January 03, 2022 Patient's name: Amelie Naik [facility]: [id number] DIAGNOSIS: Follow-up Right shoulder arthroscopic capsulorrhaphy. HISTORY [...] Smoking status: Never Passive exposure: Never Normal [facility] Marketing Underwriter Authentication Interface Message Text This patient was [...] and full strength at that time. Normal [facility] Progress Noteon 12-07-2021 Marketing Underwriter Authentication Interface Message Text Date of service: December 07, 2021 Patient's name: Amelie Naik CSN: [id number] DIAGNOSIS: Follow-up Right shoulder arthroscopic capsulorrhaphy. HISTORY [...] Smoking status: Never Passive exposure: Never Normal [facility] POCT urine HCGOrdered By: Charley Alarcon on 11-22-2021 Clear Background *Present [facility] Control Line *Present [facility] HCG ( test) Ql (U) Negative Negative [facility] Interpretation and review of laboratory results Normal [facility] Lot Number [id number] [facility] SARS CoV-2 RT-PCRon 11-20-19 22 SARS-CoV-2 (COVID-19) RNA MARKUS+probe Ql (Unsp spec) Negative [facility] Comment on above: NEGATIVE: SARS-CoV-2 RNA was [...] Authorization (EUA) and has been verified by [facility]. This test is only authorized for the [...] at the following links: For Healthcare Providers: www.fda.gov/media/657334/download For Patients: www.[place].gov/media/014349/download - Reference Value: Negative [facility] Laboratory - Chemistry and C hemistry - challengeon 07-08-2021 HCG ( test) Ql (U) Negative [facility] Work Phone: Comment on above: Very dilute urine sp ecimens, as indicated by a low specificgravity, may not contain artist representative levels of hCG. If is still suspected, a first morning urinespecimen should be collected 48 hours later and tested. Laboratory - Chemistry and C hemistry - challengeon 05-31-2021 HCG ( test) Ql (U) Negative [facility] Work Phone: Comment on above: Very dilute urine sp ecimens, as indicated by a low specificgravity, may not contain artist representative levels of hCG. If is still suspected, a first morning urinespecimen should be collected 48 hours later and tested. Laboratory - Chemistry and C hemistry - challengeon 04-11-2021 HCG ( test) Ql (U) Negative [facility] Work Phone: Comment on above: Very dilute urine sp ecimens, as indicated by a low specificgravity, may not contain artist representative levels of hCG. If is still [...] documented data. SIGNIFICANT EVENTS: No documented data. 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 Integumentary: [place], warm, dry, and Intact. Neurologic: Alert, Oriented, Normal sensory, Normal motor function. Cognition and Speech: Oriented, Speech clear and coherent. Psychiatric: Cooperative, Appropriate mood & affect. Impression and Plan Course: Unchanged Plan: Patient will be discharged to participate in sports without restriction Patient Instructions: Sports physical CLINICAL IMPRESSION Diagnosis/Annotation: ED Dx Name:[employer] physical Code:Z02.5 Disposition: discharged Type: home ATTESTATION CRITICAL CARE TIME Is this a critically ill patient: no Electronic Signatures: Raffi Young (ASSURANCE MANAGER INSURANCE-TRAVEL CONSULTANT) (Signed 08-Jun-2020 17:37) Authored: HPI, PMH, PE, Results/Vital Signs, MDM/ED Course, Clinical Impression, Attestation, Chart Review, Scores Last Updated: 08-Jun-2020 17:37 by Raffi Young (ASSURANCE MANAGER INSURANCE-TRAVEL CONSULTANT) Normal [facility] HCG,URINEon 02-09-2020 Beta HCG ( test) Ql (U) Negative Normal Negative [facility] Comment on above: Performed By: #### H CGU #### [address] [address] Vital Signs Date Time Vital Sign Value Performing Clinician Facility 12-23-2024 14:30-0400 Body temperature 97.9 [degF] Dr. Bonnie Flores MD Work Phone: [facility] 12-23-2024 14:30-0400 Diastolic blood pressure 65 mm[Hg] Dr. Bonnie Flores MD Work Phone: [facility] 12-23-2024 14:30-0400 Heart rate 60 /min Dr. Bonnie Flores MD Work Phone: [facility] 12-23-2024 14:30-0400 Respiratory rate 16 /min Dr. Bonnie Flores MD Work Phone: [facility] 12-23-2024 14:30-0400 SaO2% (BldA) [Mass fraction] 99 % Dr. Bonnie Flores MD Work Phone: [phone] [place] [address] 12-23-2024 14:30-0400 Systolic blood pressure 98 mm[Hg] Dr. Bonnie Flores MD Work Phone: [facility] 12-23-2024 12:20-0400 Body height 167.[address] Bonnie Flores MD Work Phone: [facility] 12-23-2024 12:20-0400 Body mass index (BMI) [Percentile] Per age and sex 39.7 % Dr. Bonnie Flores MD Work Phone: [facility] 12-23-2024 12:20-0400 Body mass index (BMI) [Ratio] 20.9 kg/m2 Dr. Bonnie Flores MD Work Phone: [facility] 12-23-2024 12:20-0400 Body weight 58.[address] Bonnie Flores MD Work Phone: [facility] 12-06-2024 06:35-0400 Body temperature 98.1 [degF] Dr. Bonnie Flores MD Work Phone: [facility] 12-06-2024 06:35-0400 Diastolic blood pressure 57 mm[Hg] Dr. Bonnie Flores MD Work Phone: [facility] 12-06-2024 06:35-0400 Heart rate 64 /min Dr. Bonnie Flores MD Work Phone: [facility] 12-06-2024 06:35-0400 Respiratory rate 16 /min Dr. Bonnie Flores MD Work Phone: [facility] 12-06-2024 06:35-0400 SaO2% (BldA) [Mass fraction] 99 % Dr. Bonnie Flores MD Work Phone: [facility] 12-06-2024 06:35-0400 Systolic blood pressure 112 mm[Hg] Dr. Bonnie Flores MD Work Phone: [facility] 12-06-2024 01:54-0400 Body height 167.[address] Bonnie Flores MD Work Phone: [facility] 12-06-2024 01:54-0400 Body mass index (BMI) [Percentile] Per age and sex 46.3 % Dr. Bonnie Flores MD Work Phone: [facility] 12-06-2024 01:54-0400 Body mass index (BMI) [Ratio] 21.4 kg/m2 Dr. Bonnie Flores MD Work Phone: [facility] 12-06-2024 01:54-0400 Body weight 60.[address] Bonnie Flores MD Work Phone: [facility] 08-19-2024 08:05-0400 Body height 167.[address] Bonnie Flores MD Work Phone: [facility] 08-19-2024 08:05-0400 Body mass index (BMI) [Percentile] Per age and sex 52.9 % Dr. Bonnie Flores MD Work Phone: [facility] 08-19-2024 08:05-0400 Body mass index (BMI) [Ratio] 21.9 kg/m2 Dr. Bonnie Flores MD Work Phone: [facility] 08-19-2024 08:05-0400 Body weight 61.[address] Bonnie Flores MD Work Phone: [facility] 08-19-2024 08:05-0400 Diastolic blood pressure 72 mm[Hg] Dr. Bonnie Flores MD Work Phone: [facility] 08-19-2024 08:05-0400 Systolic blood pressure 114 mm[Hg] Dr. Bonnie Flores MD Work Phone: [facility] 05-19-2024 11:12-0500 Body temperature 97.39 [degF] Hasmukh Houston ASSURANCE MANAGER INSURANCE.TRAVEL CONSULTANT Work Phone: [facility] 05-19-2024 11:12-0500 Body weight 62.2 kg Hasmukh Houston ASSURANCE MANAGER INSURANCE.TRAVEL CONSULTANT Work Phone: [facility] 05-19-2024 11:12-0500 Diastolic blood pressure 74 mm[Hg] Hasmukh Houston ASSURANCE MANAGER INSURANCE.TRAVEL CONSULTANT Work Phone: [facility] 05-19-2024 11:12-0500 Heart rate 90 /min Hasmukh Houston ASSURANCE MANAGER INSURANCE.TRAVEL CONSULTANT Work Phone: [facility] 05-19-2024 11:12-0500 Respiratory rate 21 /min Hasmukh Houston ASSURANCE MANAGER INSURANCE.TRAVEL CONSULTANT Work Phone: [facility] 05-19-2024 11:12-0500 SaO2% (BldA) [Mass fraction] 98 % Hasmukh Houston ASSURANCE MANAGER INSURANCE.TRAVEL CONSULTANT Work Phone: [facility] 05-19-2024 11:12-0500 Systolic blood pressure 110 mm[Hg] Hasmukh Houston ASSURANCE MANAGER INSURANCE.TRAVEL CONSULTANT Work Phone: [facility] 12-25-2023 11:02-0400 Body height 167.6 cm Tom Hutson ASSURANCE MANAGER INSURANCE-TRAVEL CONSULTANT Work Phone: [facility] 12-25-2023 11:02-0400 Body mass index (BMI) [Percentile] Per age and sex 38.57 % Tom Hutson ASSURANCE MANAGER INSURANCE-TRAVEL CONSULTANT Work Phone: [facility] 12-25-2023 11:02-0400 Body mass index (BMI) [Ratio] 20.66 kg/m2 Tom Hutson ASSURANCE MANAGER INSURANCE-TRAVEL CONSULTANT Work Phone: [facility] 12-25-2023 11:02-0400 Body temperature 97.59 [degF] Tom Hutson ASSURANCE MANAGER INSURANCE-TRAVEL CONSULTANT Work Phone: [facility] 12-25-2023 11:02-0400 Body weight 58.06 kg Tom Hutson ASSURANCE MANAGER INSURANCE-TRAVEL CONSULTANT Work Phone: [facility] 12-25-2023 11:02-0400 Diastolic blood pressure 73 mm[Hg] Tom Hutson ASSURANCE MANAGER INSURANCE-TRAVEL CONSULTANT Work Phone: [facility] 12-25-2023 11:02-0400 Heart rate 76 /min Tom Hutson ASSURANCE MANAGER INSURANCE-TRAVEL CONSULTANT Work Phone: [facility] 12-25-2023 11:02-0400 Respiratory rate 20 /min Tom Hutson ASSURANCE MANAGER INSURANCE-TRAVEL CONSULTANT Work Phone: [facility] 12-25-2023 11:02-0400 SaO2% (BldA) [Mass fraction] 98 % Tom Campbell ASSURANCE MANAGER INSURANCE-TRAVEL CONSULTANT Work Phone: [facility] 12-25-2023 11:02-0400 Systolic blood pressure 110 mm[Hg] Tom Campbell ASSURANCE MANAGER INSURANCE-TRAVEL CONSULTANT Work Phone: [facility] 04-05-2022 15:45-0500 Body height 167.[address] Shawn Vences Work Phone: [facility] Work Phone: 04-05-2022 15:41-0500 Body mass index (BMI) [Percentile] Per age and sex 56.5 % Dr. Shawn Vences Work Phone: [facility] Work Phone: 04-05-2022 15:41-0500 Body mass index (BMI) [Ratio] 21.5 kg/m2 Dr. Shawn Vences Work Phone: [facility] Work Phone: 04-05-2022 15:41-0500 Body weight 60.[address] Shawn Vences Work Phone: [facility] Work Phone: 04-05-2022 15:41-0500 Diastolic blood pressure 62 mm[Hg] Dr. Shawn Vences Work Phone: [facility] Work Phone: 04-05-2022 15:41-0500 Systolic blood pressure 120 mm[Hg] Dr. Shawn Vences Work Phone: [facility] Work Phone: 03-23-2022 15:39-0500 Body mass index (BMI) [Percentile] Per age and sex 49.2 % Dr. Shawn Vences Work Phone: [facility] Work Phone: 03-23-2022 15:39-0500 Body mass index (BMI) [Ratio] 20.9 kg/m2 Dr. Shawn Vences Work Phone: [facility] Work Phone: 03-23-2022 15:39-0500 Body weight 58.[address] Shawn Vences Work Phone: [facility] Work Phone: 03-23-2022 15:39-0500 Diastolic blood pressure 80 mm[Hg] Dr. Shawn Vences Work Phone: [facility] Work Phone: 03-23-2022 15:39-0500 Systolic blood pressure 110 mm[Hg] Dr. Shawn Vences Work Phone: [facility] Work Phone: 01-19-2022 15:05-0400 Body height 167.[address] Shawn Vences Work Phone: [facility] Work Phone: 01-19-2022 15:05-0400 Body mass index (BMI) [Percentile] Per age and sex 40.7 % Dr. Shawn Vences Work Phone: [facility] Work Phone: 01-19-2022 15:05-0400 Body mass index (BMI) [Ratio] 20.2 kg/m2 Dr. Shawn Vences Work Phone: [facility] Work Phone: 01-19-2022 15:05-0400 Body weight 56.[address] Sahwn Vences Work Phone: [facility] Work Phone: 01-19-2022 15:05-0400 Diastolic blood pressure 80 mm[Hg] Dr. Shawn Vences Work Phone: [facility] Work Phone: 01-19-2022 15:05-0400 Systolic blood pressure 96 mm[Hg] Dr. Shawn Vences Work Phone: [facility] Work Phone: 01-12-2022 15:25-0400 Body mass index (BMI) [Percentile] Per age and sex 50.2 % Dr. Shawn Vences Work Phone: [facility] Work Phone: 01-12-2022 15:25-0400 Body mass index (BMI) [Ratio] 20.9 kg/m2 Dr. Shawn Vences Work Phone: [facility] Work Phone: 01-12-2022 15:25-0400 Body weight 59.[address] Shawn Vences Work Phone: [facility] Work Phone: 01-12-2022 15:25-0400 Diastolic blood pressure 70 mm[Hg] Dr. Shawn Vences Work Phone: [facility] Work Phone: 01-12-2022 15:25-0400 Systolic blood pressure 98 mm[Hg] Dr. Shawn Vences Work Phone: [facility] Work Phone: 11-22-2021 11:25-0400 Body temperature 97.2 [degF] Lio Hood MD Work Phone: [facility] 11-22-2021 11:25-0400 Diastolic blood pressure 76 mm[Hg] Lio Hood MD Work Phone: [facility] 11-22-2021 11:25-0400 Heart rate 50 /min Lio Hood MD Work Phone: [facility] 11-22-2021 11:25-0400 Respiratory rate 17 /min Lio Hood MD Work Phone: [facility] 11-22-2021 11:25-0400 SaO2% (BldA) [Mass fraction] 100 % Lio Hood MD Work Phone: [facility] 11-22-2021 11:25-0400 Systolic blood pressure 118 mm[Hg] Lio Hood MD Work Phone: [facility] 11-22-2021 06:00-0400 Body height 166.4 cm Lio Hood MD Work Phone: [facility] 11-22-2021 06:00-0400 Body mass index (BMI) [Percentile] Per age and sex 61.38 % Lio Hood MD Work Phone: [facility] 11-22-2021 06:00-0400 Body mass index (BMI) [Ratio] 21.78 kg/m2 Lio Hood MD Work Phone: [facility] 11-22-2021 06:00-0400 Body weight 60.3 kg Lio Hood MD Work Phone: [facility] Encounters Encounter Date Encounter Type Care Provider Facility Start: 01-06-2025 End: 01-06-2025 Patient encounter procedure Abbie Tenorio [place] -[facility] Work Phone: Start: 01-06-2025 End: 01-06-[address] Bonnie Flores MD Work Phone: -[facility] Start: 01-06-2025 End: 01-06-2025 ambulatory Abbie Tenorio Facility:[facility] Start: 01-02-2025 End: 01-02-[address] Bonnie Flores MD Work Phone: -[facility] Start: 01-02-2025 End: 01-02-2025 Patient encounter procedure Abbie Tenorio [place] -[facility] Start: 01-02-2025 End: 01-02-2025 ambulatory [facility] Facility:[facility] Start: 12-23-2024 ambulatory Polaluis daniel Mirza Facility :[facility] Start: 12-23-2024 Non-patient / Non-visit Pola Hermes DO -[facility] Start: 12-23-2024 End: 12-23-2024 Admission to same day surgery center Polashayna Mirza DO -Endoscopy Work Phone: Start: 12-23-2024 End: 12-23-[address] Bonnie Flores MD Work Phone: -Endoscopy Start: 12-09-2024 ambulatory Bonnie Flores Facility: [facility] Start: 12-06-2024 End: 12-06-2024 Emergency department patient visit Dr. Bonnie Flores MD Work Phone: -Emergency Department Work Phone: Start: 11-28-2024 End: 11-28-[address] Bonnie Flores MD Work Phone: -Laboratory Specimen Start: 11-28-2024 End: 11-28-[address] Bonnie Flores MD -Laboratory Specimen Work Phone: Start: 11-27-2024 End: 11-27-2024 Patient encounter procedure Mayelin Luna INTERMEDIATE MANAGER-C -[facility] Work Phone: Start: 11-27-2024 End: 11-28-[address] Bonnie Flores MD Work Phone: -[facility] Start: 11-27-2024 End: 11-27-2024 ambulatory Bonnie Flores Facility:[facility] Start: 09-19-2024 Encounter for gynecological examination (general) (routine) without abnormal findings Trista Rubio NP [facility] Start: 08-19-2024 End: 08-19-2024 Patient encounter procedure Trista Rubio INTERMEDIATE MANAGERLaneC -[facility] Work Phone: Start: 08-19-2024 End: 08-19-2024 Patient encounter status Trista Rubio NP-C [facility] Start: 08-19-2024 End: 08-19-2024 ambulatory Trista Rubio INTERMEDIATE MANAGER Facility:[facility] Start: 05-19-2024 End: 05-19-2024 ambulatory HASMUKH [facility]GBANNER [facility] Facility:[facility] Start: 05-19-2024 End: 05-19-2024 Office outpatient visit 15 minutes Hasmukh Houston ASSURANCE MANAGER INSURANCE.TRAVEL CONSULTANT Work Phone: [facility] Comment on above: Viral illness (Prima ry Dx) Start: 02-08-2024 End: 02-08-2024 ambulatory Bonnie Flores Facility:[facility] Start: 02-04-2024 End: 02-04-2024 Emergency department patient visit Sebastián Hankins Facility:[facility] Start: 12-25-2023 End: 12-25-2023 Patient encounter procedure Tom Hutson ASSURANCE MANAGER INSURANCE-TRAVEL CONSULTANT Work Phone: [phone] [place] [address] Urgent Care Comment on above: Acute upper respirat ory infection (Primary Dx) Start: 12-25-2023 End: 12-25-2023 ambulatory ALAN VENCES [facility] Start: 12-06-2022 End: 12-06-2022 ambulatory [facility] Work Phone: Start: 12-06-2022 End: 12-06-2022 Discharged Recurring [facility]-Physical Therapy Work Phone: Start: 11-22-2022 End: 11-22-2022 ambulatory [facility] Start: 06-21-2022 End: 06-21-2022 ambulatory LIO JESÚSANNAALEXIS [facility] Start: 05-10-2022 End: 05-10-2022 ambulatory LIO HOOD [facility] Start: 04-05-2022 End: 04-05-[address] Shawn Vences Work Phone: [facility] Work Phone: Start: 04-05-2022 End: 04-05-[address] Shawn Vences Work Phone: [facility] Start: 03-29-2022 End: 03-29-2022 ambulatory LIO HOOD [facility] Start: 03-23-2022 End: 03-23-[address] Shawn Vences Work Phone: [facility] Start: 03-02-2022 End: 03-02-[address] Shawn Vences Work Phone: [facility] Work Phone: Start: 03-02-2022 End: 03-02-[address] Shawn Vences Work Phone: [facility]-Physical Therapy Start: 02-14-2022 End: 02-14-2022 ambulatory ALAN VENCES [facility] Start: 01-19-2022 End: 01-19-[address] Shawn Vences Work Phone: [facility] Start: 01-12-2022 End: 01-12-[address] Shawn Vences Work Phone: [facility] Start: 01-03-2022 End: 01-03-2022 ambulatory ALAN VENCES [facility] Start: 12-07-2021 End: 12-07-2021 ambulatory ALAN VENCES [facility] Start: 11-22-2021 End: 11-22-2021 Preprocedural [...] Start: 10-25-2021 End: 10-25-2021 Patient encounter procedure [facility] - [facility] Start: 10-05-2021 End: 10-05-2021 Discharged Recurring [facility]-Physical Therapy Start: 07-08-2021 End: 07-08-2021 [facility] Start: 05-31-2021 End: 05-31-2021 [facility] Start: 04-29-2021 End: 04-29-2021 [facility] Start: 04-18-2021 End: 04-18-2021 [facility] Start: 04-11-2021 Patient encounter procedure [facility]-Laboratory, [place] Procedures Date Procedure Procedure Detail Performing Clinician Start: 01-06-2025 Endomysial antibody IgA level Dr. Bonnie Flores MD Work Phone: Start: 12-23-[address] Bonnie Flores MD Work Phone: Start: 12-06-[address] Bonnie Flores MD Work Phone: Start: 12-06-2024 Urnls dip stick/tabl et reagent auto microscopy Dr. Bonnie Flores MD Work Phone: Start: 12-06-2024 Computed tomography of abdomen and pelvis with contrast Dr. Bonnie Flores MD Work Phone: Start: 11-27-[address] Medardo Flores MD Work Phone: Comment on above: Performed at: [address] [id number] Director: Nita Marin MD, Phone: [phone] at: [address] [id number] Director: Sean Alvarez PhD, Phone: [phone] Start: 11-27-2024 Antibody to centrome re measurement [...] Bonnie Flores MD Work Phone: Start: 11-27-2024 CONTROLLED AREA CHECKER antibody measurement Dr. Bonnie Flores MD Work Phone: Comment on above: Test not performed Start: 11-27-[address] Bonnie Flores MD Work Phone: Start: 12-25-2023 POCT SARS-COV-2/FLU/ RSV PCR SYMPTOMATIC Tom Hutson ASSURANCE MANAGER INSURANCE-TRAVEL CONSULTANT Work Phone: Start: 12-25-2023 Iadna streptococcus group a amplified probe tq Tom Hutson ASSURANCE MANAGER INSURANCE-TRAVEL CONSULTANT Work Phone: Start: 11-22-2021 Urine test visual color cmprsn meths Rajani M Jaya ASSURANCE MANAGER INSURANCE-TRAVEL CONSULTANT Work Phone: Start: 11-19-2021 SARS COV-2 RT-PCR Elizabeth Porter PA-C Work Phone: Start: 10-25-2021 MRI of joint of lowe r extremity Start: 04-29-2021 Radiologic examinati on of knee Start: 04-18-2021 Radiography of nasal sinuses Plan of Treatment Date Care Activity Detail Author Start: 2055 Zoster Vaccines (1 of 2) Zoste r Vaccines (1 of 2) [facility] Start: 12-13-2026 DTaP/Tdap/Td Vaccine s (7 - Td or Tdap) DTaP/Tdap/Td Vaccines (7 - Td or Tdap) [facility] Start: 12-13-2026 Urine microalbumin profile DTaP,Tdap,Td Vaccine (7 - Td or Tdap) [facility] Start: 12-23-2024 Colonoscopy w/biopsy single/multiple COLONOSCOPY AND BIOPSY [facility] Start: 12-23-2024 Patient discharge [facility] Start: 12-06-2024 [facility] Start: 12-16-2023 COVID-19 Vaccine ( season) COVID-19 Vaccine () [facility] Start: 12-16-2023 Covid-19 Vaccine () Covid-19 Vaccine () [facility] Start: 12-16-2023 Influenza vaccination Influenza Vacc ine (#1) [facility] Start: 2023 Anxiety Screening Anxiety Screening [facility] Start: 2023 Depression Screening Depression Scre ening [facility] Start: 2023 GC (Gonorrhea) Scree elizabeth () GC (Gonorrhea) Screening () [facility] Start: 2023 Hepatitis C screening Hepatitis C [facility] Start: 2023 HIV screening HIV Screening [facility] Start: 2023 Screening for Chlamy kaz trachomatis Chlamydia Screening () [facility] Start: 12-15-2021 FLU (#1) FLU (#1) [facility] Start: 12-07-2021 End: 12-07-2021 Patient encounter procedure 12/07/2021 Office Visit Pediatric Orthopedic Surgery Lio Hood MD [address] [facility] [address] [place] [address] [facility] [place] Start: 11-22-2021 End: 11-22-2021 Admission to same day surgery center 11/22/2021 Surgery Lio Hood MD [address] [facility] [address] [place], [place] [id number] RIGHT ARTHROSCOPY SHOULDER ARTHOSCOPIC [facility] Comment on above: RIGHT ARTHROSCOPY SH OULDER ARTHOSCOPIC [facility] Start: 11-22-2021 End: 11-22-2021 ARTHROSCOPY SHOULDER ARTHOSCOPIC [facility] Start: 11-22-2021 Subsequent hospital visit by physician 11/22/2021 Hospital Encounter Lio Hood MD [address] [facility] [address] [place] [address] [facility] Start: 2021 MenACWY (1 - 2-dose series) MenACWY (1 - 2-dose series) [facility] Start: 2021 MenB (1 of 2 - MenB 2-Dose Series) MenB (1 of 2 - MenB 2-Dose Series) [facility] Start: 01-18-2020 Hearing Screening Hearing Screening [facility] Start: 01-18-2020 Vision Screening Vision Screening [facility] Start: 2019 Peds To Adult Transi tion Annual Assessment Peds To Adult Transition Annual Assessment [facility] Start: 2017 Peds To Adult Transi tion Initial Discussion Peds To Adult Transition Initial Discussion [facility] Start: 01-18-2016 HPV (1 - 2-dose series) HPV (1 - 2-dose series) [facility] Start: 2015 Adolescent Depressio n Screening Adolescent Depression Screening [facility] Start: 01-18-2012 Tetanus Diphtheria a nd Pertussis Vaccines (1 - Tdap) Tetanus Diphtheria and Pertussis Vaccines (1 - Tdap) [facility] Start: 2009 Hearing Screening (#1) Hearing Scree elizabeth (#1) [facility] Start: 01-18-2008 Well Child Visit (WC V) - Annual Well Child Visit (WCV) - Annual [facility] Start: 2006 Hepatitis A (1 of 2 - 2-dose series) Hepatitis A (1 of 2 - 2-dose series) [facility] Start: 2006 MMR (1 of 2 - Standa rd series) MMR (1 of 2 - Standard series) [facility] Start: 2006 Varicella (1 of 2 - 2-dose childhood series) Varicella (1 of 2 - 2-dose childhood series) [facility] Start: 2005 COVID-19 (#1) COVID-19 (#1) [facility] Start: 2005 Polio (1 of 3 - 4-do se series) Polio (1 of 3 - 4-dose series) [facility] Start: 2005 Hepatitis B (1 of 3 - 3-dose primary series) Hepatitis B (1 of 3 - 3-dose primary series) [facility] Start: 2005 HIV screening HIV Screening [facility] Start: 2005 Lipid panel Lipid Panel [facility] C reactive protein [Mass/volume] in Serum or Plasma [facility] CBC W Auto Different ial panel - Blood [facility] Comprehensive metabo lic 2000 panel - Serum or Plasma [facility] CT Abdomen and Pelvi s W contrast IV [facility] Cytoplasmic ANCA Screen [facility] Elastase.pancreatic [Presence] in Stool [facility] Patient Education ED Abdominal P ain Unkn Cause Fem [facility] Work Phone: Protein measurement [facility] Immunizations Immunization Date Immunization Notes Care Provider Ginette núñez 01-09-2019 influenza virus vaccine, unspecified formulation Tom Hutson APRN-TRAVEL CONSULTANT Work Phone: [facility] Work Phone: Payers Date Payer Category Payer Unknown [id number] 2024 Unknown [id number] 2024 Self-pay [id number] 2024 Unknown [id number] 2023 Unknown [id number] 2021 Unknown [id number] 2005 Unknown [id number] 2.16.8 40.1.814611.3.579.2.1243 1972 Unknown [id number] 2.16. 840.1.529123.3.579.2.479 1972 Unknown [id number] 2.16. 840.1.655189.3.579.2.479 1972 Unknown [id number] 2.16. 840.1.570133.3.579.2.479 1972 Unknown [id number] 2.16. 840.1.423511.3.579.2.479 1972 Unknown [id number] 2.16. 840.1.805227.3.579.2.479 1972 Unknown [id number] 2.16. 840.1.649533.3.579.2.479 1972 Unknown [id number] 2.16 840.1.844684.3.579.2.479 Self-pay [id number] [address] [facility] *DO NOT USE* [id number] Unknown [id number] 2.16.8 40.1.171796.3.579.2.462 Unknown [id number] 2.16.8 40.1.919768.3.579.2.462 Unknown [id number] 2.16.8 40.1.047443.3.579.2.462 Unknown [id number] 2.16.8 40.1.344214.3.579.2.462 Unknown [id number] 2.16.8 40.1.258488.3.579.2.462 Unknown [id number] 2.16.8 40.1.356698.3.579.2.462 Unknown [id number] 2.16.8 40.1.147404.3.579.2.462 Unknown [id number] 2.16.8 40.1.842269.3.579.2.462 Unknown [id number] 2.16.8 40.1.597305.3.579.2.462 Unknown [id number] 2.16.8 40.1.453781.3.579.2.462 Unknown [id number] 2.16.8 40.1.828397.3.579.2.462 Unknown [id number] 2.16.8 40.1.166736.3.579.2.462 Unknown [id number] 2.16.8 40.1.178894.3.579.2.462 Social History Date Type Detail Facility Start: 01-05-2020 End: 07-31-2022 Tobacco smoking status NHIS Unknown if ever smoked [facility] Start: 2005 Sex Assigned At Female [facility] Start: 11-16-2021 End: 12-17-2024 Tobacco smoking status COIS Never smoked tobacco [facility] Work Phone: Start: 2005 Sex Assigned At Not on file [facility] Start: 11-09-2021 End: 12-25-2023 Exposure to SARS-CoV-2 (event) Not sure [facility] Start: 03-24-2020 End: 05-19-2024 Gender identity Not on file [facility] Start: 07-17-2012 Tobacco use and exposure Smokeless tobacco non-user [facility] Start: 05-19-2024 Alcoholic beverage intake Current non-drinker of alcohol (finding) [facility] Start: 03-24-2020 End: 05-19-2024 History of Social function [facility] National Score (1-100), lower number is lower risk Not on file [facility] NEGATED: Highlighted rowStart: NINF History of tobacco use Passive smoker [facility] Medical Equipment Procedure Code Equipment Code Equipment Origin al Text Equipment Identifier Dates Suture [place] [employer] With #2 [employer] [id number] Start: 11-22-2021 Goals Date Patient Goal Desired Activity /State Mental Status Date Assessment Result Facility 12-23-2024 Cognitive function Level Of Consciousness Drowsy [facility] Work Phone: Clinical Notes 11-19-2021 to 01-06-2025 Note Date & Type Note Facility 01-06-[address] [facility] 12-23-2024 Consult note Note Date/Time December 23, 2024 12:51pm [facility] Medical Records Department [address] [place] [address] Pre-Anesthesia Evaluation 12/23/24 1244 MR#: [id number] Acct: [id number] Name: AMELIE NAIK Rep #:[id number] : 2005 19 From: Ron Delarosa MD PCP: Dr. Bonnie Flores MD Status:REG SDC Y Race: C Location: [place] [address] ASA Classification* ASA Classification ASA Classification: 2 Assessment & Plan Anesthesia* Anesthesia Assessment Anesthesia Assessment: Discussed sedation and/or anesthesia options, risks, benefits, and alternatives with patient/parents/legal guardian/POA. Questions invited. The patient/parents/legal guardian/POA seems to understand and agrees to proceedwith anesthesia plan. Reviewed the physical assessment, medical history, allergy history and patient home medications list prior to surgery/procedure/anesthetic and documented any changes. Performed airway and anesthesia risk assessments. Anesthesia Type Anesthesia Type: MAC History Source History Obtained from:: Patient and Chart Anesthesia Focused Assessment* Temperature: 98.2 F Pulse Rate: 75 Blood Pressure: 111/64 Respiratory Rate: 16 Pulse Ox: 100 Oxygen Delivery Method: Room Air Airway Assessment Mouth opens: >3 cm Mallampati Score: II Teeth Condition: Upper (Patient is a filling over her tooth #7. Rest of the teeth are tight.) Neck Range of motion (ROM): Full ROM Labs Anesthesia Preop lab: CBC WBC 10.5 K/mm3 (4.4-11.0) 12/06/24 02:00 12/06/24 RBC 4.65 M/mm3 (4.2-5.4) 12/06/24 02:00 12/06/24 Hgb 13.4 g/dL (12.0-15.0) 12/06/24 02:00 12/06/24 Hct 40.7 % (37-47) 12/06/24 02:00 12/06/24 Plt Count 265 K/mm3 (150-450) 12/06/24 02:00 12/06/24 CHEMISTRY Potassium 3.9 mmol/L (3.3-5.1) 12/06/24 02:00 12/06/24 Sodium 139 mmol/L (133-145) 12/06/24 02:00 12/06/24 BUN 15 mg/dL (4-19) 12/06/24 02:00 12/06/24 Creatinine 1.04 mg/dL (0.70-1.20) 12/06/24 02:00 12/06/24 Glucose 108 mg/dL (70-99) H 12/06/24 02:00 12/06/24 COAG Urine Test Negative Negative 12/06/24 03:30 12/06/24 Pre-Assessment Diagnosis/Proposed Procedure Planned Operative Procedure(s): COLONOSCOPY Anesthesia History Anesthesia History - shingle cutter: Anesthesia History - shingle cutter Hx Hospitalization No 12/17/24 10:31 Any Problems With Anesthesia Yes: N&V 12/17/24 10:31 Cholinesterase deficiency No 12/17/24 10:31 You/Your Family Experience No 12/17/24 10:31 fever (hyperthermia) with Relationship Recent Exposure to Contagious No 12/23/24 12:34 Disease Does patient have nerve No 12/17/24 10:31 stimulator Patient instructed to have device shut off --Does patient have Pacemaker No 12/23/24 12:20 or ICD? When Was Last Pacemaker Check QUESTION #4 FULL TEXT: You/Your Family Experience fever (hyperthermia) with Anesthesia Last Oral Intake Last Oral intake: Last Oral Intake NPO since 11:00 12/23/24 12:20 Meds taken in AM with sips of No 12/23/24 12:20 water? Meds patient instructed to take am of surgery Any additional information?: Yes NPO since: 11:00 (Patient had water as a prep at 11am.) Meds taken in AM with sips of water?: No PONV PONV - shingle cutter: PONV - shingle cutter Female Yes 12/17/24 10:31 HX of Motion Sickness No 12/17/24 10:31 HX of N/V After Surgery No 12/17/24 10:31 Non-Smoker Yes 12/17/24 10:31 Duration of Surgery greater No 12/17/24 10:31 than 60 minutes Number of Risk Factors 2 12/17/24 10:31 PONV Score Moderate Risk 12/17/24 10:31 Height & Weight Height & Weight: Anesthesia: Height & Weight Height 5 ft 6 in 12/23/24 12:20 Weight: 58.8 kg 12/23/24 12:20 Body Mass Index (BMI) 20.9 12/23/24 12:20 Respiratory Assessment Respiratory Assessment - shingle cutter: Respiratory Tract Infection Hx - shingle cutter Hx Respiratory Tract Infection No 12/17/24 10:31 STOP Sleep Apnea STOP Sleep Apnea - shingle cutter: STOP Sleep Apnea - shingle cutter Hx Hypertension No 12/17/24 10:31 Hx Sleep Apnea No 12/17/24 10:31 CPAP BIPAP Do you snore loudly (louder No 12/17/24 10:31 than talking or can be heard Do you often feel tired/ No 12/17/24 10:31 fatigued/ sleepy during daytime? Has anyone observed you stop No 12/17/24 10:31 breathing during sleep? STOP Results Negative 12/17/24 10:31 QUESTION #5 FULL TEXT : Do you snore loudly (louder than talking or can be heard through closed doors)? Tobacco Use History Tobacco Use History - shingle cutter: Tobacco Use History - shingle cutter Tobacco Use Smoking Status Never smoker 12/17/24 10:31 Hx Tobacco Use No 12/17/24 10:31 Years Smoking Packs Smoked per Day Smoking Cessation Date was within the last 15 years Hx Smoking Cessation Date Hx Smoking Cessation Counseling Hematologic Medial History Hematologic Hx - shingle cutter: Hematologic Medical Hx - cloth mercerizer back tender Hx of Blood Transfusion No 12/17/24 10:31 Hx of Transfusion in last 3 No 12/17/24 10:31 Months Date of Last Transfusion (if within last 3 months) Ever experience any problems No 12/17/24 10:31 with transfusion(s)? Specify any problems Hx of Preganancy in last 3 No 12/17/24 10:31 Months Nurse Filling Out Transfusion VCHRISTIN 12/17/24 10:31 & Questions: Date: 12/17/24 12/17/24 10:31 Time: 10:32 12/17/24 10:31 Patient unable to answer at this time (ie. confused, unrespo /Reproduction History /Reproductive History - shingle cutter: /Reproductive Hx- shingle cutter Hx Now No 12/17/24 10:31 Gestational Age (in weeks): EDC: Hx Hx Para Hx Section SAB No 12/17/24 10:31 Active Medications Active Medications: Current Medications Generic Name Dose Route Start Last Admin Trade Name Freq PRN Reason Stop Dose Admin Lactated Ringer's 1,000 mls @ 15 mls/hr 12/23/24 12:15 12/23/24 12:35 IV 15 mls/hr .Q48H DARY Administration PFSH Medical History Back pain Non-smoker Acne Home Medications ?Medication ?Instructions ?Recorded ?Last Taken ?Type norgestimate 0.25 mg-ethinyl 1 tab PO QDAY #84 tabs Unknown Rx estradiol 0.035 mg tablet (Sprintec (28)) Allergy/AdvReac Type Severity Reaction Status Date / Time No Known Allergies Allergy Verified 12/23/24 12:18 Surgical History H/O shoulder surgery Social History pets and animals: Yes sexually active: No Smoking Status: Never smoker alcohol intake: never substance use type: does not use well-balanced diet: daily or most days caffeine: Yes Type: carbonated beverages, coffee and other what type of physical activity do you participate in: weight training seatbelt use: always Review of Systems (Anesthesia) ROS Narrative System reviewed and no additional complaints, except as documented. 12/23/24 1251 <Electronically signed by Ron skinner MD> Date _ Ron Delarosa MD Cosigner Signature: Date CC: ~ Signed [facility] Work Phone: [phone] 668-382509-09-2025 Consult note [facility] Medical Records Department [address] [place] [address] Anesthesia Postop Eval I 12/23/24 1417 MR#: [id number] Acct: [id number] Name: AMELIE NAIK Rep #:[id number] : 2005 19 From: Vandana Stephenson CRNA PCP: Dr. Bonnie Flores MD Status:REG [facility] Y Race: C Location: [place] [address] Anesthesia: Postop Eval I Current Vital Signs Temperature: 98 F Pulse Rate: 73 Blood Pressure: 110/88 Respiratory Rate: 20 Pulse Ox: 99 Assessment Airway patent: Yes Spontaneous unlabored respirations: Yes nausea: No Vomiting: No Anesthesia Complication: No Fluid Hydration Crystalloid volume administer (ml): 300 Total IV fluid infused: 300 Progress Note Anesthesia document: Postop Eval 1 completed: Yes 12/23/24 1418 a ARTIST AND REPERTOIRE MANAGER> Date _ Vandana Sirca ARTIST AND REPERTOIRE MANAGER Cosigner Signature: Date CC: ~ Signed [facility]09-09-2025 Procedure note [facility] Medical Records Department [address] [place] [address] Provation Physician Letter MR#: [id number] Acct: [id number] Name: AMELIE NAIK Rep #:[id number] : 2005 19 From: Pola Mirza DO PCP: Dr. Bonnie Flores MD Status:[facility] 12/23/2024 Bonnie Flores [address] [address] Re : Colonoscopy procedure for Amelie Naik Dear Dr. Flores This procedure was performed on Monday, December 23, 2024. My impressions and recommendations are as follows: Impressions : - The entire examined colon is normal. Biopsied. - Mild inflammation was found in the ileum secondary to ileitis. Biopsied. Recommendations : - Discharge patient to home. - Resume previous diet. - Continue present medications. - Await pathology results. - Repeat colonoscopy (date not yet determined) for surveillance based on pathology results. My findings are described in the full procedure note, which is enclosed. If I can be of further assistance, please feel free to contact me at . Sincerely, Pola Mirza DO 12/23/2024 2:13:37 PM This report has been signed electronically. 12/23/24 1413 Date _ Pola Mirza DO Cosigner Signature: Date (if indicated) CC: Dr. Bonnie Flores MD; Pola Mirza DO ~ Date Dictated: 12/23/24 1337 Date Transcribed: Air Chief Marshal: RF Signed [facility]09-09-2025 Procedure note [facility] Medical Records Department [address] [place] [id number] Colonoscopy Report MR#: [id number] Acct: [id number] Name: AMELIE NAIK Rep #:[id number] : 2005 19 From: Pola Mirza DO PCP: Dr. Bonnie Flores MD Status:[facility] Patient Name: Amelie Naik Procedure Date: 12/23/2024 1:37 PM Date of : 2005 Age: 19 Procedure: Colonoscopy Indications: Screening for colorectal malignant neoplasm Providers: Pola Mirza DO Referring MD: Bonnie Flores Medicines: Monitored Anesthesia Care Patient Profile: This is a 19 year old female. Refer to note in patient chart for documentation of history and physical. Last Colonoscopy: none. The patient's first colonoscopy is today. Complications: No immediate complications. Procedure: Pre-Anesthesia Assessment: - Prior to the procedure, a History and Physical was performed, and patient medications and allergies were reviewed. The patient is competent. The risks and benefits of the procedure and the sedation options and risks were discussed with the patient. All questions were answered and informed consent was obtained. Patient identification and proposed procedure were verified by the physician in the pre-procedure area. Mental Status Examination: alert and oriented. Airway Examination: normal oropharyngeal airway and neck mobility. Respiratory Examination: clear to auscultation. CV Examination: normal. Prophylactic Antibiotics: The patient does not require prophylactic antibiotics. Prior Anticoagulants: The patient has taken no anticoagulant or antiplatelet agents except for NSAID medication. ASA Grade Assessment: II - A patient with mild systemic disease. After reviewing the risks and benefits, the patient was deemed in satisfactory condition to undergo the procedure. The anesthesia plan was to use monitored anesthesia care (MAC). Immediately prior to administration of medications, the patient was re-assessed for adequacy to receive sedatives. The heart rate, respiratory rate, oxygen saturations, blood pressure, adequacy of pulmonary ventilation, and response to care were monitored throughout the procedure. The physical status of the patient was re-assessed after the procedure. After I obtained informed consent, the scope was passed under direct vision. Throughout the procedure, the patient's blood pressure, pulse, and oxygen saturations were monitored continuously. The Colonoscope was introduced through the anus and advanced to the terminal ileum. The colonoscopy was performed without difficulty. The patient tolerated the procedure well. The quality of the bowel preparation was adequate. The terminal ileum, ileocecal valve, appendiceal orifice, and rectum were photographed. Scope In: 1:52:40 PM Scope Withdrawal Time 0 hours 9 minutes 33 seconds Scope Out: 2:08:24 PM Total Procedure Duration Time 0 hours 15 minutes 44 seconds Findings: The perianal and digital rectal examinations were normal. The colon (entire examined portion) appeared normal. Biopsies were taken with a cold forceps for histology. Verification of patient identification for the specimen was done. Estimated blood loss was minimal. Patchy mild inflammation characterized by erosions and erythema was found in the terminal ileum. Biopsies were taken with a cold forceps for histology. Verification of patient identification for the specimen was done. Estimated blood loss was minimal. Impression: - The entire examined colon is normal. Biopsied. - Mild inflammation was found in the ileum secondary to ileitis. Biopsied. Recommendation: - Discharge patient to home. - Resume previous diet. - Continue present medications. - Await pathology results. - Repeat colonoscopy (date not yet determined) for surveillance based on pathology results. Procedure Code(s): --- Professional --- 96871, Colonoscopy, flexible; with biopsy, single or multiple CPT copyright 2021 [employer]. All rights reserved. The codes documented in this report are preliminary and upon dye house wheel operator review may be revised to meet current compliance requirements. Pola Mirza DO 12/23/2024 2:13:37 PM This report has been signed electronically. Number of Addenda: 0 Note Initiated On: 12/23/2024 1:37 PM 12/23/24 1413 Date _ Pola Mirza DO Cosigner Signature: Date (if indicated) CC: Dr. Bonnie Flores MD; Pola Mirza DO ~ Date Dictated: 12/23/24 1337 Date Transcribed: Air Chief Marshal: RF Signed [facility]09-09-2025 History and physical note [facility] Medical Records Department [address] [place] [address] History & Physical Exam 12/23/24 1340 MR#: [id number] Acct: [id number] Name: AMELIE NAIK Rep #:[id number] : 2005 19 From: Pola Mirza DO PCP: Dr. Bonnie Flores MD Status:[facility] Location: [place] [address] HPI - General General Date of Admission: 12/23/24 Date of Service: 12/23/24 Chief Complaint: diarrhea HPI Narrative AMELIE NAIK, is a 19 F who presents for abdominal pain and diarrhea [facility] Medical History Back pain Non-smoker Acne Home Medications ?Medication ?Instructions ?Recorded ?Last Taken ?Type norgestimate 0.25 mg-ethinyl 1 tab PO QDAY #84 tabs Unknown Rx estradiol 0.035 mg tablet (Sprintec (28)) Allergy/AdvReac Type Severity Reaction Status Date / Time No Known Allergies Allergy Verified 12/23/24 12:18 Surgical History H/O shoulder surgery Social History pets and animals: Yes sexually active: No Smoking Status: Never smoker alcohol intake: never substance use type: does not use well-balanced diet: daily or most days caffeine: Yes Type: carbonated beverages, coffee and other what type of physical activity do you participate in: weight training seatbelt use: always ROS Constitutional Constitutional: Denies fatigue, fever(s), poor appetite, weight gain or weight loss Gastrointestinal Gastrointestinal: Denies belching, bloating, change in bowel habits, change in stool character, chewing difficulty, coffee ground emesis, constipation, cramping, diarrhea, dyspepsia, dysphagia, earlysatiety, excessive flatus, fecal incontinence, heartburn, hematemesis, hematochezia, hemorrhoids, loose stools, melena, nausea, odynophagia, rectal bleeding, tenesmus, vomiting or weight changes Vital Signs Vital Signs Vital Signs: 12/23/24 12:20 12/23/24 12:34 12/23/24 12:51 Temperature 98.2 F 98.2 F Temperature Source Temporal Pulse Rate 75 75 Respiratory Rate 16 16 Respiratory Pattern Normal Blood Pressure 111/64 111/64 Blood Pressure Mean 79 Blood Pressure Source Monitor Blood Pressure Position Semi-Fowlers Blood Pressure Location Left Arm Pulse Ox 100 100 Oxygen Delivery Method Room Air Room Air Weight Weight: 129 lb 10.109 oz Body Mass Index (BMI) 20.9 Physical Exam Const alert, oriented x3, no apparent distress and healthy appearing General Appearance: cooperative GI normal to inspection, nondistended, normoactive bowel sounds, soft to palpation,non-tender and non-distended Percussion: normal to percussion Rectal Exam: deferred Results Lab / Micro Data Labs: Laboratory Results - last 24 hr 12/23/24 12:35: Serum , Qual NEGATIVE Assessment & Plan Assessment/Plan (1) Abdominal pain: QUALIFIERS: Abdominal location: epigastric Qualified Code(s): R10.13 - Epigastric pain PLAN: Assessment and Plan Assessment and Plan (1) Dysphagia: (2) Loose stools: Status: Acute Plan: Veronique is a 32-year-old female patient here today for evaluation of loose stool, globus sensation, and epigastric pain. Patient's symptoms started about a year ago. She has constant feeling like thereis something in her esophagus as well as concern of a smell coming up into her mouth. She denies issues with swallowing. Epigastric pain is worse on an empty stomach. Prior to 1 year ago patient had r egular formed bowel movements however now she has multiple softer bowel movements per day. 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 I have ordered stool testing to rule out infection or inflammation in her colon. She will also undergo upper endoscopy to assess her upper GI tract for inflammatory processes such as EOE. I have also ordered food allergy testing. Celiac panel was negative. She will follow-up after testing. - EGD - Stool testing - Allergy panel - Follow-up after endoscopy (3) Epigastric abdominal pain: Status: Acute Orders: Orders Allergen, Food Profile 14 Today R19.5 - Other fecal abnormalities ENTERIC PATHOGEN PANEL STOOL Today K58.9 - Irritable bowel syndrome, unspecified, R19.5 - Other fecal abnormalities Giardia Lamblia, Stool EIA Today R19.5 - Other fecal abnormalities Ova and Parasites 8623 Today K58.9 - Irritable bowel syndrome, unspecified, R19.5 - Other fecal abnormalities Stool Lactoferrin/WBC Today K58.9 - Irritable bowel syndrome, unspecified, R19.5 - Other fecal abnormalities Calprotectin, Stool Today R19.5 - Other fecal abnormalities CDIFF (PCR) Today R19.5 - Other fecal abnormalities Medications: Discontinued oxycodone Discontinued Reason: Pt no longer taking 5 mg PO Q4H PRN 3 days PRN 10 [id number] Pain Score 4-10 Z98.891 - History of uterine scar from previous surgery cephalexin Discontinued Reason: Pt no longer taking 500 mg PO Q12 5 days 10 CAPSULES 0RF ondansetron Discontinued Reason: Pt no longer taking 4 mg PO Q8H PRN PRN 20 tabs 0RF Nausea oxycodone Discontinued Reason: Pt no longer taking 5 mg PO Q6H 5 days 20 caps 0RF N20.0 - Calculus of kidney tamsulosin Discontinued Reason: Pt no longer taking 0.4 mg PO DAILY 5 CAPSULES 0RF 12/23/24 1342 Cosigner Signature (if applicable): CC: Dr. Bonnie Flores MD; Pola Mirza DO~ Signed [facility]09-09-2025 [facility] Medical Records Department [address] [place] [address] History Physical Exam 12/23/24 1340 MR#: [id number] Acct: [id number] Name: AMELIE NAIK Rep #: [id number] : 2005 19 From: Pola Mirza DO PCP: Dr. Bonnie Flores MD Status:[facility] Location: [place] [address] HPI - General General Date of Admission: 12/23/24 Date of Service: 12/23/24 Chief Complaint: diarrhea HPI Narrative AMELIE NAIK, is a 19 F who presents for abdominal pain and diarrhea PFSH Medical History Back pain Non-smoker Acne Home Medications ???Medication ???Instructions ???Recorded ???Last Taken ???Type norgestimate 0.25 mg-ethinyl 1 tab PO QDAY #84 tabs 08/19/24 Un known Rx estradiol 0.035 mg tablet (Sprintec (28)) Allergy/AdvReac Type Severity Reaction Status Date / Time No Known Allergies Allergy Verified 12/23/24 12:18 Surgical History H/O shoulder surgery Social History pets and animals: Yes sexually active: No Smoking Status: Never smoker alcohol intake: never substance use type: does not use well-balanced diet: daily or most days caffeine: Yes Type: carbonated beverages, coffee and other what type of physical activity do you participate in: weight training seatbelt use: always ROS Constitutional Constitutional: Denies fatigue, fever(s), poor appetite, weight gain or weight loss Gastrointestinal Gastrointestinal: Denies belching, bloating, change in bowel habits, change in stool character, chewing difficulty, coffee ground emesis, constipation, cramping, diarrhea, dyspepsia, dysphagia, early satiety, excessive flatus, fecal incontinence, heartburn, hematemesis, hematochezia, hemorrhoids, loose stools, melena, nausea, odynophagia, rectal bleeding, tenesmus, vomiting or weight changes Vital Signs Vital Signs Vital Signs: 12/23/24 12:20 12/23/24 12:34 12/23/24 12:51 Temperature 98.2 F 98.2 F Temperature Source Temporal Pulse Rate 75 75 Respiratory Rate 16 16 Respiratory Pattern Normal Blood Pressure 111/64 111/64 Blood Pressure Mean 79 Blood Pressure Source Monitor Blood Pressure Position Semi-Fowlers Blood Pressure Location Left Arm Pulse Ox 100 100 Oxygen Delivery Method Room Air Room Air Weight Weight: 129 lb 10.109 oz Body Mass Index (BMI) 20.9 Physical Exam Const alert, oriented x3, no apparent distress and healthy appearing General Appearance: cooperative GI normal to inspection, nondistended, normoactive bowel sounds, soft to palpation, non-tender and non- distended Percussion: normal to percussion Rectal Exam: deferred Results Lab / Micro Data Labs: Laboratory Results - last 24 hr 12/23/24 12:35: Serum , Qual NEGATIVE Assessment Plan Assessment/Plan (1) Abdominal pain: QUALIFIERS: Abdominal location: epigastric Qualified Code(s): R10.13 - Epigastric pain PLAN: Assessment and Plan Assessment and Plan (1) Dysphagia: (2) Loose stools: Status: Acute Plan: Veronique is a 32-year-old female patient here today for evaluation of loose stool, globus sensation, and epigastric pain. Patient's symptoms started about a year ago. She has constant feeling like there is something in her esophagus as well as concern of a smell coming up into her mouth. She denies issues with swallowing. Epigastric pain is worse on an empty stomach. Prior to 1 year ago patient had regular formed bowel movements however now she has multiple softer bowel movements per day. 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 I have ordered stool testing to rule out infection or inflammation in her colon. She will also undergo upper endoscopy to assess her upper GI tract for inflammatory processes such as EOE. I have also ordered food allergy testing. Celiac panel was negative. She will follow-up after testing. - EGD - Stool testing - Allergy panel - Follow-up after endoscopy (3) Epigastric abdominal pain: Status: Acute Orders: Orders Allergen, Food Profile 14 Today R19.5 - Other fecal abnormalities ENTERIC PATHOGEN PANEL STOOL Today K58.9 - Irritable bowel syndrome, unspecified, R19.5 - Other fecal abnormalities Giardia Lamblia, Stool EIA Today R19.5 - Other fecal abnormalities Ova and Parasites 8623 Today K58.9 - Irritable bowel syndrome, unspecified, R19.5 - Other fecal abnormalities Stool Lactoferrin/WBC Today K58.9 - Irritable bowel syndrome, unspecified, R19.5 - Other fecal abnormalities Calprotectin, Stool Today R19.5 - Other fecal abnormalities CDIFF (PCR) Today R19.5 - Other fecal abnormalities Medicat (more content not included)...[facility]09-09-2025 Consult note [facility] Medical Records Department [address] [place] [address] Pre-Anesthesia Evaluation 12/23/24 1244 MR#: [id number] Acct: [id number] Name: AMELIE NAIK Rep #:[id number] : 2005 19 From: Ron Delarosa MD PCP: Dr. Bonnie Flores MD Status:REG [facility] Race: C Location: [place] [address] ASA Classification* ASA Classification ASA Classification: 2 Assessment & Plan Anesthesia* Anesthesia Assessment Anesthesia Assessment: Discussed sedation and/or anesthesia options, risks, benefits, and alternatives with patient/parents/legal guardian/POA. Questions invited. The patient/parents/legal guardian/POA seems to understand and agrees to proceedwith anesthesia plan. Reviewed the physical assessment, medical history, allergy history and patient home medications list prior to surgery/procedure/anesthetic and documented any changes. Performed airway and anesthesia risk assessments. Anesthesia Type Anesthesia Type: MAC History Source History Obtained from:: Patient and Chart Anesthesia Focused Assessment* Temperature: 98.2 F Pulse Rate: 75 Blood Pressure: 111/64 Respiratory Rate: 16 Pulse Ox: 100 Oxygen Delivery Method: Room Air Airway Assessment Mouth opens: >3 cm Mallampati Score: II Teeth Condition: Upper (Patient is a filling over her tooth #7. Rest of the teeth are tight.) Neck Range of motion (ROM): Full ROM Labs Anesthesia Preop lab: CBC WBC 10.5 K/mm3 (4.4-11.0) 12/06/24 02:00 12/06/24 RBC 4.65 M/mm3 (4.2-5.4) 12/06/24 02:00 12/06/24 Hgb 13.4 g/dL (12.0-15.0) 12/06/24 02:00 12/06/24 Hct 40.7 % (37-47) 12/06/24 02:00 12/06/24 Plt Count 265 K/mm3 (150-450) 12/06/24 02:00 12/06/24 CHEMISTRY Potassium 3.9 mmol/L (3.3-5.1) 12/06/24 02:00 12/06/24 Sodium 139 mmol/L (133-145) 12/06/24 02:00 12/06/24 BUN 15 mg/dL (4-19) 12/06/24 02:00 12/06/24 Creatinine 1.04 mg/dL (0.70-1.20) 12/06/24 02:00 12/06/24 Glucose 108 mg/dL (70-99) H 12/06/24 02:00 12/06/24 COAG Urine Test Negative Negative 12/06/24 03:30 12/06/24 Pre-Assessment Diagnosis/Proposed Procedure Planned Operative Procedure(s): COLONOSCOPY Anesthesia History Anesthesia History - shingle cutter: Anesthesia History - shingle cutter Hx Hospitalization No 12/17/24 10:31 Any Problems With Anesthesia Yes: N&V 12/17/24 10:31 Cholinesterase deficiency No 12/17/24 10:31 You/Your Family Experience No 12/17/24 10:31 fever (hyperthermia) with Relationship Recent Exposure to Contagious No 12/23/24 12:34 Disease Does patient have nerve No 12/17/24 10:31 stimulator Patient instructed to have device shut off --Does patient have Pacemaker No 12/23/24 12:20 or ICD? When Was Last Pacemaker Check QUESTION #4 FULL TEXT: You/Your Family Experience fever (hyperthermia) with Anesthesia Last Oral Intake Last Oral intake: Last Oral Intake NPO since 11:00 12/23/24 12:20 Meds taken in AM with sips of No 12/23/24 12:20 water? Meds patient instructed to take am of surgery Any additional information?: Yes NPO since: 11:00 (Patient had water as a prep at 11am.) Meds takenin AM with sips of water?: No PONV PONV - shingle cutter: PONV - shingle cutter Female Yes 12/17/24 10:31 HX of Motion Sickness No 12/17/24 10:31 HX of N/V After Surgery No 12/17/24 10:31 Non-Smoker Yes 12/17/24 10:31 Duration of Surgery greater No 12/17/24 10:31 than 60 minutes Number of Risk Factors 2 12/17/24 10:31 PONV Score Moderate Risk 12/17/24 10:31 Height & Weight Height & Weight: Anesthesia: Height & Weight Height 5 ft 6 in 12/23/24 12:20 Weight: 58.8 kg 12/23/24 12:20 Body Mass Index (BMI) 20.9 12/23/24 12:20 Respiratory Assessment Respiratory Assessment - shingle cutter: Respiratory Tract Infection Hx - shingle cutter Hx Respiratory Tract Infection No 12/17/24 10:31 STOP Sleep Apnea STOP Sleep Apnea - shingle cutter: STOP Sleep Apnea - shingle cutter Hx Hypertension No 12/17/24 10:31 Hx Sleep Apnea No 12/17/24 10:31 CPAP BIPAP Do you snore loudly (louder No 12/17/24 10:31 than talking or can be heard Do you often feel tired/ No 12/17/24 10:31 fatigued/ sleepy during daytime? Has anyone observed you stop No 12/17/24 10:31 breathing during sleep? STOP Results Negative 12/17/24 10:31 QUESTION #5 FULL TEXT : Do you snore loudly (louder than talking or can be heard through closeddoors)? Tobacco Use History Tobacco Use History - shingle cutter: Tobacco Use History - shingle cutter Tobacco Use Smoking Status Never smoker 12/17/24 10:31 Hx Tobacco Use No 12/17/24 10:31 Years Smoking Packs Smoked per Day Smoking Cessation Date was within the last 15 years Hx Smoking Cessation Date Hx Smoking Cessation Counseling Hematologic Medial History Hematologic Hx - shingle cutter: Hematologic Medical Hx - cloth mercerizer back tender Hx of Blood Transfusion No 12/17/24 10:31 Hx of Transfusion in last 3 No 12/17/24 10:31 Months Date of Last Transfusion (if within last 3 months) Ever experience any problems No 12/17/24 10:31 with transfusion(s)? Specify any problems Hx of Preganancy in last 3 No 12/17/24 10:31 Months Nurse Filling Out Transfusion VCHRISTIN 12/17/24 10:31 & Questions: Date: 12/17/24 12/17/24 10:31 Time: 10:32 12/17/24 10:31 Patient unable to answer at this time (ie. confused, unrespo /Reproduction History /Reproductive History - shingle cutter: /Reproductive Hx- shingle cutter Hx Now No 12/17/24 10:31 Gestational Age (in weeks): EDC: Hx Hx Para Hx Section SAB No 12/17/24 10:31 Active Medications Active Medications: Current Medications Generic Name Dose Route Start Last Admin Trade Name Freq PRN Reason Stop Dose Admin Lactated Ringer's 1,000 mls @ 15 mls/hr 12/23/24 12:15 12/23/24 12:35 IV 15 mls/hr .Q48H DARY Administration PFSH Medical History Back pain Non-smoker Acne Home Medications ?Medication ?Instructions ?Recorded ?Last Taken ?Type norgestimate 0.25 mg-ethinyl 1 tab PO QDAY #84 tabs Unknown Rx estradiol 0.035 mg tablet (Sprintec (28)) Allergy/AdvReac Type Severity Reaction Status Date / Time No Known Allergies Allergy Verified 12/23/24 12:18 Surgical History H/O shoulder surgery Social History pets and animals: Yes sexually active: No Smoking Status: Never smoker alcohol intake: never substance use type: does not use well-balanced diet: daily or most days caffeine: Yes Type: carbonated beverages, coffee and other what type of physical activity do you participate in: weight training seatbelt use: always Review of Systems (Anesthesia) ROS Narrative System reviewed and no additional complaints, except as documented. 12/23/24 1251 brody MCNALLY> Date _ Ron Delarosa MD Cosigner Signature: Date CC: ~ Signed [facility]08-23-2025 Discharge summary [facility] Medical Records Department [address] [place] [address] Emergency Department Summary 12/06/24 MR#: [id number] Acct: [id number] Name: AMELIE NAIK Rep #:[id number] : 2005 19 From: Kadie Horn PCP: Dr. Bonnie Flores MD Status:REG ER Location: ED HPI HPI - GI History of Present Illness Chief Complaint: Abd Pain Informant: patient Narrative Narrative: Patient is a 19-year-old female presenting with cramping abdominal pain and diarrhea. Patient states she has been dealing with abdominal pain and weight loss for the past year. Recently followed up with GI and was seen. Has outpatient testing including CT with p.o. and IV contrast ordered. She has a family history of inflammatory bowel disease in her sister and her grandmother. She states that yesterday she developed some sharp pain in her left upper quadrant that is worsened throughout the daytoday. She was recently prescribedBentyl and took it for the first time. 2 hours later she had severe cramping throughout her stomach and diarrhea. She came to the ER for further evaluation. She doeshave some associated nausea denies any vomiting. Denies any black or blood in her stool. Denies anyfever or chills. Denies any urinary symptoms. Last menstrual period was November 18. States these are the same symptoms she is been having over the last year (also had been unintentional weight loss with it) but increased severity tonight. She states she is having up to 5 bowel movements a day. She states she gets stomach pain even when she is eating blandfood now. Denies any exacerbating or alleviating factors that she can think of. No other complaints or concerns at this time [facility] Medical History Acne Home Medications ?Medication ?Instructions ?Recorded ?Last Taken ?Type norgestimate 0.25 mg-ethinyl 1 tab PO QDAY #84 tabs Unknown Rx estradiol 0.035 mg tablet (Sprintec (28)) dicyclomine 20 mg tablet 20 mg PO BID #60 tabs Unknown Rx Allergy/AdvReac Type Severity Reaction Status Date / Time No Known Allergies Allergy Verified 12/06/24 01:53 Surgical History H/O shoulder surgery Social History [...] Constitutional Constitutional ED: Denies chills or fever(s) Cardiovascular Cardiovascular: Denies chest pain Respiratory/Chest Respiratory/Chest: Denies dyspnea Gastrointestinal Gastrointestinal: Reports abdominal pain, diarrhea and nausea; Denies vomiting Genitourinary Genitourinary ED: Denies dysuria or hematuria Musculoskeletal Musculoskeletal: Reports other Details: Note she does have back pain with abdominal pain from time to time ; Denies arthralgias or myalgias Integumentary Denies rash Neurologic Neurologic: Denies paresthesias or weakness Psychiatric Psychiatric: Denies anxiety EXAM Physical Exam Const Vital Signs: 12/06/24 01:54 12/06/24 03:00 12/06/24 04:59 Temperature 98.1 F Temperature Source Oral Pulse Rate 81 70 67 Respiratory Rate 16 16 16 Blood Pressure 132/82 H 117/71 104/52 L Blood Pressure Mean 98 86 69 Pulse Ox 100 100 100 Oxygen Delivery Method Room Air Room Air Room Air Positive well nourished and well developed General Appearance ED: well developed and NAD; Negative for pallor HEENT Reports moist mucous membranes normocephalic and atraumatic Eyes General Eye ED: Negative for pale conjunctiva Resp normal respiratory effort and clear to auscultation bilaterally Cardio regular rate and regular rhythm GI non-distended Auscultation: normoactive bowel sounds Palpation: soft and tender LUQ; Negative for guarding or rigid Back/Spine no CVA tenderness Extremity full ROM General Extremety ED: Negative for edema General Extremity: Negative for edema Neuro moves all extremities Sensorium / Orientation: alert, oriented to person, oriented to place and oriented to time Motor Exam: Negative for general weakness Psych mental status grossly normal and thought process normal Skin General Skin Exam: Negative for jaundice or pallor MDM MDM MDM Narrative Medical decision making narrative: Patient is Biba for worsening cramping abdominal pain especially in the left upper quadrant with associated diarrhea. This happened after taking Bentyl for the first time tonight. She is currently inan outpatient evaluation for possible inflammatory bowel disease with a year of symptoms and weightloss. Has a strong family history. Differential includes bowel obstruction, constipation, inflammatory bowel disease flare, symptomatic anemia, volvulus and colitis/diverticulitis. Patient given IV Toradol in the emergency room. She overall is well-appearing on exam. Lower suspicion for renal pathology given the longevity of her symptoms and associated diarrhea. Workup including CBC, CMP, lipase and urinalysis largely unremarkable. test is negative. CT of the abdomen pelvis does not show any acute abdominal pelvic abnormalities except for an ovulating follicle on the left with trace physiologic free fluid. Patient informed of this findings. Willcontinue to follow-up outpatient with GI. Repeat evaluation she states she is feeling improved. Discussed that I am not sure what is causing her symptoms but it sounds like she is on the right track w ith outpatient testing and she has colonoscopy scheduled for December. Is given return precautions. Patient and father agreeable with plan of care. Patient discharged home in stable condition.She will refrain from usingdicyclomine and call GI for further recommendations History & Record Review Additional record(s) reviewed:: Prior outpatient record (GI visit- 11/27/24) Lab Data Attestation: I reviewed the patient's lab results. Labs: Laboratory Results - last 24 hr 12/06/24 12/06/24 02:00 03:30 WBC 10.5 RBC 4.65 Hgb 13.4 Hct 40.7 MCV 87.5 MCH 28.8 MCHC 32.9 RDW Std Deviation 41.3 RDW Coeff of Rosana 13.1 Plt Count 265 MPV 9.9 Immature Gran % (Auto) 0.300 Neut % (Auto) 60.7 Lymph % (Auto) 30.0 [place] % (Auto) 7.7 Eos % (Auto) 0.8 Baso % (Auto) 0.5 Absolute Neuts (auto) 6.4 Absolute Lymphs (auto) 3.15 Nucleated RBC % 0 Sodium 139 Potassium 3.9 Chloride 103 Carbon Dioxide 21.4 Anion Gap 15 BUN 15 Creatinine 1.04 Estim Creat Clear Calc 81.45 Est GFR (MDRD) Non-Af 79 BUN/Creatinine Ratio 14.3 Glucose 108 H Calcium 9.5 Total Bilirubin 0.20 AST 19 ALT 10 Alkaline Phosphatase 50 Total Protein 7.6 Albumin 4.4 Globulin 3.3 Albumin/Globulin Ratio 1.3 Lipase 36 Urine Color Straw Urine Clarity Clear Urine pH 7.0 Ur Specific Stanton 1.005 Urine Protein 15 H Urine Glucose (UA) Normal Urine Ketones Negative Urine Occult Blood Negative Urine Nitrite Negative Urine Bilirubin Negative Urine Urobilinogen Normal Ur Leukocyte Esterase 100 H Urine RBC 0 SEEN Urine WBC 0-5 SEEN Ur Squamous Epith Cells 0 SEEN Ur Transition Epith Cell 0-5 SEEN Urine Bacteria 0 SEEN Urine Mucus 0 SEEN Urine Test Negative Radiography Diagnostic Testing: Clinical Impression(s) from Imaging Studies Abdomen/Pelvis CT 12/06/24 02:33 IMPRESSION: On ovulating follicle in the left ovary with trace physiological free fluid in the pelvis. Otherwise, no acute abdominopelvic abnormalities. Reading Location: [facility] Discharge Plan Triage Chief Complaint: Abd Pain ED Provider: Kadie Gonzales Dx/Rx/DC Orders Clinical Impression: Abdominal pain, Diarrhea Instructions: ED Abdominal Pain Unkn Cause Fem Prescriptions: No Action norgestimate-ethinyl estradiol [Sprintec (28)] 0.25-35 mg-mcg tablet 1 tab PO QDAY Qty: 84 4RF dicyclomine 20 mg tablet 20 mg PO BID Qty: 60 0RF Primary Care Provider: Bonnie Flores Referrals: Bonine Flores MD [Primary Care Provider] - Activity Restrictions/Additional Instructions: Your workup today was largely normal and reassuring. Please continue to follow- up with GI outpatient. Refrain from using dicyclomine as it seems to have caused worsening of your symptoms tonight. Youmay alternate ibuprofen and Tylenol as needed for discomfort. Please call your GI office on Sunday to let them know you are seen in the ER and that you had a CT performed. Print Language: [place] Islander Disposition Disposition: Home, Self Care What to do if you have Problems For any increased pain, shortness of breath, bleeding, nausea or vomiting, chestpain, or any unexpected problems, contact your Primary Care Provider. Call [facility] ([phone]) or report tothe closest Emergency Room. Call 911 if necessary. 12/06/24 0635 Cosigner Signature (if applicable): CC: Dr. Bonnie Flores MD ~ Signed [facility]08-23-2025 Radiology Diagnostic study note [facility] Imaging Services [address] [place], [place] [address] Abdomen/Pelvis WITH Contrast MR#: [id number] Acct: [id number] Name: AMELIE NAIK Rep #: [id number] : 2005 F 19 From: Azael Mejia MD PCP: Dr. Bonnie Flores MD Status: REG ER Study:Abdomen/Pelvis WITH Contrast Date of Ex am: 12/06/24 Exam# [id number] Ordering Dr: Jovana Gonzales DO PROCEDURE: ABDOMEN/PELVIS WITH CONTRAST 12/06/2024 REASON FOR EXAM: ABD PAIN, LUQ, DIARRHEA TECHNIQUE: ABDOMEN/PELVIS WITH CONTRAST Coronal and Sagittal reconstruction series were provided. CONTRAST: Isovue 370 VOLUME: 75 mL One or more dose reduction techniques were used (e.g., Automated exposure control, adjustment of the mA and/or kV according to patient size, use of iterative reconstruction technique. RADIATION DOSE SUMMARY: CTDlvol: 6.66 mGy DLP: 344.26 mGycm COMPARISON: Abdominal x-ray 05/05/2020. No comparison CT abdomen and pelvis are available. FINDINGS: Lung bases: Clear. Liver: Unremarkable. Gallbladder: Unremarkable. Spleen: Unremarkable. Pancreas: Unremarkable. Adrenals: Unremarkable. Kidneys: No hydronephrosis or nephrolithiasis. Bladder: Unremarkable. Reproductive Organs: And ovulating follicle in the left ovary. Bowel: No bowel wall thickening. No bowel obstruction. Appendix: No evidence of acute appendicitis. Lymph nodes: No lymphadenopathy. Vasculature: No aneurysm. Peritoneum / Retroperitoneum: Trace free fluid in the pelvis which is nonspecific and can be physiological. Bones: No acute bony abnormalities. CT/Abdomen/Pelvis WITH Contrast IMPRESSION: On ovulating follicle in the left ovary with trace physiological free fluid in the pelvis. Otherwise, no acute abdominopelvic abnormalities. Reading Location: [facility] CC: Dr. Kadie Gonzales DO; Dr. Bonnie Flores MD ~ Air Chief Marshal: Signed [facility]08-14-2025 Evaluation note* Diagnosis Onset Date Resolution Status Admit Date Abdominal pain acute November 8:59am Abdominal pain acute December 23, 2024 12:01pm [facility] Work Phone: 1(264) 561-897408-14-2025 Evaluation note* Diagnosis Onset Date Resolution Status Admit Date Abdominal pain acute November 8:59am Abdominal pain acute December 23, 2024 12:01pm Abdominal pain acute January 06, 2025 8:25am Loose stools acute January 062024 8:25am [facility] Work Phone: 1(402) 649-229505-06-2025 Evaluation note* Diagnosis Onset Date Resolution Status Admit Date Acne acute August 19, 2024 8:02am Encounter for routine gynecological examination noneactive August 8:02am Abdominal pain acute November 8:59am [facility] Work Phone: 1([phone]) 403-757202-03-2025 NoteHNO ID: [id number] Author: HASMUKH HOUSTON APRN.[facility] Service: ? Author Type: Nurse Practitioner Type: [...] of care. This note was generated using [employer] software. It may contain errors in wording, punctuation, or spelling. Hasmukh Houston APRN.[facility]02-03-2025 History of Present illness Narrative* Hasmukh Houston APRN.[facility] - 05/19/2024 11:17 AM EST Subjective HPI [...] of care. This note was generated using [employer] software. It may contain errors in wording, punctuation, or spelling. Hasmukh Houtson APRN.[facility] History of Present illness Narrative* Tom [...] Review Audit Reviewed by Mayelin Welch MA (Conformal Pad Former) on 12/25/23 at 1102 Medication Order Taking? Sig Documenting Provider Last Dose Status norethindrone ac-eth estradioL (Femhrt 04/20) 1-5 mg-mcg tablet [id number] Yes Take by mouth once daily. Historical [...] Amelie's care are: none Tom Hutson CNP [facility] [phone] [facility] Work Phone: [phone]) 460-641908-23-2023 Discharge summary Author Rajani Grace [facility] December 06, 2022 4:47pm Note Date/Time December 06, 2022 4: 47pm [facility] Physical Therapy [facility] [address] [place] [address]. [address] [place] [address] / REHABILITATION SERVICES DISCHARGE SUMMARY MR#: [id number] Acct: [id number] Name: AMELIE NAIK Rep #: [id number] : 2005 17 From: Rajani Maldonado Referring : Status: REG RCR Insurance: JESSICA SELF PAY [...] is planning to play in college at [employer]! Also has a gym membership in [facility] plans to go to the gym 3-5x a week for shoulder strengthening. Overall Improvement % Improvement: 100 Objective Objective/Function: Posture: good throughout Gait: no deviation noted- good arm swing and trunk rotation ROM: Cervical/Shoulder: WFL in all planes Palpation: not tender to touch Strength: Scap: fair minus, 5/5 throughout Elbow: 5/5 throughout no pain Apron Man: Left: 100 Right: 80. Flex: Upper Trap: [...] please feel free to call me at [phone]. Thank you for the referral of thispatient. Sincerely, Rajani Grace, DPT Balance/Gait/Functional tests Balance/Special Test Scores Quick DASH Score: 0 <Electronically signed by Rajani Grace DPT> 12/06/22 5392 CC: Dr. Shawn Vences MD; ELIZABETH PORTER ~ ELR Signed [facility] Work Phone: 1(632) 653-924608-09-2022 Plan of care note* Plan of Care - Mayelin Hamilton RN - 11/22/2021 11:13 AM EDT Education completed [facility]08-09-2022 Miscellaneous Notes* Plan of Care - Mayelin [...] 11/22/2021 TYPE: outpatient [facility]#: [id number] ATTENDING: Lio Hood MD DATE: 11/22/2021 Surgeon(s) and Role: * Lio Hood MD - Primary * Bogdan Mata MD - Resident - Assisting OR STAFF: [employer] Membership Advisors: Shameka Moncada RN; Chela Ramachandran RN Physician Kaiako Kohanga Reo: Elizabeth Porter PA-C Scrub Person: Melissa Hassan [...] Implant Name Type Inv. Item Serial No. Display Manager Lot No. LRB No. Used Action Suture [place] Biocomposite SutureTak with #2 Fiberwire Implant Misc N/A [employer] [id number] Right 3 Implanted SUTURE ANCHOR BIOCOMPOSITE SUTURETAK WITH #2 FIBERWIRE Implant Misc N/A [employer] [id number] Right 1 Implanted COMPLICATIONS: None. Amelie tolerated the procedure well. The patient was taken to PACU. The results of the operation were discussed with the family as able. Post-Operative Plan: Patient we discharged to home begin physical therapy in approximately 2 weeks time she will follow-up with me in 2 weeks for suture removal. She will rehab as per the postoperative [facility] protocol. Lio Hood MD [facility] 9:57 AM * Ancillary Progress Note - [...] and support NADIR Malik documented in this encounterThe [facility]'Do[facility] [id number] Plan of care note* Plan of Care - Alea Yang RN - 11/22/2021 10:17 AM EDT Ongoing [facility]08-09-2022 Procedure note* Brief Op Note - Bogdan [...] Dr. Gautam Hankins MD Orthopaedic Surgery, PGY-3 [facility]08-09-2022 History of Present illness Narrative* Vicky Walters RN - 11/22/2021 7:48 AM EDT After a time out was performed, I assisted Dr. Grissom with the ultra sound machine and nerve stimulator for needle placement during a right supraclavicular nerve block for post op pain management. Total time spent on set up and procedure was 30 minutes. Vicky Walters RN documented in this encounterSum[facility]-2022 Procedure note* Op Note - Lio Hood MD - 11/22/2021 7:32 AM EDT OPERATIVE REPORT NAME: Amelie Naik DATE OF : 2005 AGE: 16 y.o. GENDER: female WEIGHT: Weight - Scale: 60.3 kg ADMIT DATE: 11/22/2021 TYPE: outpatient [facility]#: [id number] ATTENDING: Loi Hood MD DATE: 11/22/2021 Surgeon(s) and Role: * Lio Hood MD - Primary * Bogdan Mata MD - Resident - Assisting OR STAFF: [employer] Advisors: Shameka Moncada RN; Chela Ramachandran RN Physician Kaiako Kohanga Reo: Elizabeth Porter PA-C Scrub Person: Melissa Hassan [...] Implant Name Type Inv. Item Serial No. Display Manager Lot No. LRB No. Used Action Suture [place] Biocomposite SutureTak with #2 Fiberwire Implant Misc N/A [employer] Printed Piece [id number] Right 3 Implanted SUTURE ANCHOR BIOCOMPOSITE SUTURETAK WITH #2 FIBERWIRE Implant Misc N/A [employer]ed Piece [id number] Right 1 Implanted COMPLICATIONS: None. Amelie tolerated the procedure well. The patient was taken to PACU. The results of the operation were discussed with the family as able. Post-Operative Plan: Patient we discharged to home begin physical therapy in approximately 2 weeks time she will follow-up with me in 2 weeks for suture removal. She will rehab as per the postoperative [facility] protocol. Lio Hood MD [facility] 9:57 AM [facility]08-09-2022 Progress note* Ancillary Progress Note - [...] post-op follow up and support NADIR Malik [facility]08-09-2022 Attending History and physical note* Lio [...] location at office. DATE OF SERVICE: 11/16/2021 INTERMEDIATE MANAGER PROVIDER: NENITA Beach SURGICAL DIAGNOSIS: right shoulder [...] with parents Special Needs: None Preferred Language: [place] Islander School: [employer] Smoking/Alcohol/Drug Use or Exposure: none [...] APTT, INR No results found for: TSH, P8CDERY, P4GDIOC, THYROIDAB No results found for: HCGUR No results found for: HCGSERUM ASSESSMENT: Patient Active Problem List Diagnosis Right shoulder pain Amelie Niak is a 16 y.o. 9 m.o. female with right shoulder pain. Based on this evaluation for surgical risk factors and review of necessary clinical studies (if indicated), she has no other past medical history or past surgical history that would impact this procedure. [facility] DIANE physical examination limited due to [...] to surgery. -Remove all piercings and nail bermudian/acrylics on the day of surgery -Pre-operative acetaminophen [...] the total time spent on the encounter. [facility] Work Phone: [phone]) 250-131308-09-2022 History and physical note* Lio Hood MD [...] location at office. DATE OF SERVICE: 11/16/2021 INTERMEDIATE MANAGER PROVIDER: NENITA Beach SURGICAL DIAGNOSIS: right shoulder [...] with parents Special Needs: None Preferred Language: [place] Islander School: 11 Smoking/Alcohol/Drug Use or Exposure: none [...] APTT, INR No results found for: TSH, U8GKZXB, C9ZFJUF, THYROIDAB No results found for: HCGUR No [...] surgical history that would impact this procedure. [facility] physical examination limited due to [...] to surgery. -Remove all piercings and nail bermudian/acrylics on the day of surgery -Pre-operative acetaminophen ordered- to be given upon arrival and after vital signs have been obtained. Parent educated on benefits of preop analgesia and agrees with administration prior to procedure -Synera patch ordered for possible IV induction Care coordination: Alan Venecs MD(PCP) OTHER FINDINGS OR COMMENTS: Cc: MD Rajani Jeong APRN-CNP 11/16/2021 4:19 PM This visit was conducted via telehealth. I spent 40 minutes with patient/family and performing chart review for this consult. Counseling and/or coordination of care was greater than 50% of the total time spent on the encounter. documented in this encounterSum[facility]08-06-2022 NoteIs this a pre-procedure screening test?->YesACH LABConsult note Author Vandana [facility] Note Date/Time December 23, 2024 2:18pm [facility] Medical Records Department [address] [place] [address] Anesthesia Postop Eval I 12/23/24 141 MR#: [id number] Acct: [id number] Name: AMELIE NAIK Rep #:[id number] : 2005 19 From: Vandana Stephenson CRNA PCP: Dr. Bonnie Flores MD Status:REG SDC Y Race: C Location: [place] [address] Anesthesia: Postop Eval I Current Vital Signs Temperature: 98 F Pulse Rate: 73 Blood Pressure: 110/88 Respiratory Rate: 20 Pulse Ox: 99 Assessment Airway patent: Yes Spontaneous unlabored respirations: Yes nausea: No Vomiting: No Anesthesia Complication: No Fluid Hydration Crystalloid volume administer (ml): 300 Total IV fluid infused: 300 Progress Note Anesthesia document: Postop Eval 1 completed: Yes 12/23/24 1418 <Electronically signed by Vandana collins CRNA> Date _ Vandana Stephenson CRNA Cosigner Signature: Date CC: ~ Signed [facility] Work Phone: Discharge summary Author Kadie Gonzales [facility] Note Date/Time December 06, 2024 6: 35am [facility] Medical Records Department [address] [place] [address] Emergency Department Summary 12/06/24 MR#: [id number] Acct: [id number] Name: AMELIE NAIK Rep #:[id number] : 2005 19 From: Kadie Horn PCP: Dr. Bonnie Flores MD Status:REG ER Location: ED HPI HPI - GI History of Present Illness Chief Complaint: Abd Pain Informant: patient Narrative Narrative: Patient is a 19-year-old female presenting with cramping abdominal pain and diarrhea. Patient states she has been dealing with abdominal pain and weight loss for the past year. Recently followed up with GI and was seen. Has outpatient testing including CT with p.o. and IV contrast ordered. She has a family history of inflammatory bowel disease in her sister and her grandmother. She states that yesterday she developed some sharp pain in her left upper quadrant that is worsened throughout the day today. She was recently prescribedBentyl and took it for the first time. 2 hours later she had severe cramping throughout her stomach and diarrhea. She came to the ER for further evaluation. She does have some associated nausea denies any vomiting. Denies any black or blood in her stool. Denies any fever or chills. Denies any urinary symptoms. Last menstrual period was November 18. States these are the same symptoms she is been having over the last year (also had been unintentional weight loss with it) but increased severity tonight. She states she is having up to 5 bowel movements a day. She states she gets stomach pain even when she is eating blandfood now. Denies any exacerbating or alleviating factors that she can think of. No other complaints or concerns at this time [facility] Medical History Acne Home Medications ?Medication ?Instructions ?Recorded ?Last Taken ?Type norgestimate 0.25 mg-ethinyl 1 tab PO QDAY #84 tabs Unknown Rx estradiol 0.035 mg tablet (Sprintec (28)) dicyclomine 20 mg tablet 20 mg PO BID #60 tabs Unknown Rx Allergy/AdvReac Type Severity Reaction Status Date / Time No Known Allergies Allergy Verified 12/06/24 01:53 Surgical History H/O shoulder surgery Social History [...] Constitutional Constitutional ED: Denies chills or fever(s) Cardiovascular Cardiovascular: Denies chest pain Respiratory/Chest Respiratory/Chest: Denies dyspnea Gastrointestinal Gastrointestinal: Reports abdominal pain, diarrhea and nausea; Denies vomiting Genitourinary Genitourinary ED: Denies dysuria or hematuria Musculoskeletal Musculoskeletal: Reports other Details: Note she does have back pain with abdominal pain from time to time ; Denies arthralgias or myalgias Integumentary Denies rash Neurologic Neurologic: Denies paresthesias or weakness Psychiatric Psychiatric: Denies anxiety EXAM Physical Exam Const Vital Signs: 12/06/24 01:54 12/06/24 03:00 12/06/24 04:59 Temperature 98.1 F Temperature Source Oral Pulse Rate 81 70 67 Respiratory Rate 16 16 16 Blood Pressure 132/82 H 117/71 104/52 L Blood Pressure Mean 98 86 69 Pulse Ox 100 100 100 Oxygen Delivery Method Room Air Room Air Room Air Positive well nourished and well developed General Appearance ED: well developed and NAD; Negative for pallor HEENT Reports moist mucous membranes normocephalic and atraumatic Eyes General Eye ED: Negative for pale conjunctiva Resp normal respiratory effort and clear to auscultation bilaterally Cardio regular rate and regular rhythm GI non-distended Auscultation: normoactive bowel sounds Palpation: soft and tender LUQ; Negative for guarding or rigid Back/Spine no CVA tenderness Extremity full ROM General Extremety ED: Negative for edema General Extremity: Negative for edema Neuro moves all extremities Sensorium / Orientation: alert, oriented to person, oriented to place and oriented to time Motor Exam: Negative for general weakness Psych mental status grossly normal and thought process normal Skin General Skin Exam: Negative for jaundice or pallor MDM MDM MDM Narrative Medical decision making narrative: Patient is Biba for worsening cramping abdominal pain especially in the left upper quadrant with associated diarrhea. This happened after taking Bentyl for the first time tonight. She is currently in an outpatient evaluation for possible inflammatory bowel disease with a year of symptoms and weight loss. Has a strong family history. Differential includes bowel obstruction, constipation, inflammatory bowel disease flare, symptomatic anemia, volvulus and colitis/diverticulitis. Patient given IV Toradol in the emergency room. She overall is well-appearing on exam. Lower suspicion for renal pathology given the longevity of her symptoms and associated diarrhea. Workup including CBC, CMP, lipase and urinalysis largely unremarkable. test is negative. CT of the abdomen pelvis does not show any acute abdominal pelvic abnormalities except for an ovulating follicle on the left with trace physiologic free fluid. Patient informed of this findings. Will continue to follow-up outpatient with GI. Repeat evaluation she states she is feeling improved. Discussed that I am not sure what is causing her symptoms but it sounds like she is on the right track with outpatient testing and she has colonoscopy scheduled for December. Is given return precautions. Patient and father agreeable with plan of care. Patient discharged home in stable condition. She will refrain from usingdicyclomine and call GI for further recommendations History & Record Review Additional record(s) reviewed:: Prior outpatient record (GI visit- 11/27/24) Lab Data Attestation: I reviewed the patient's lab results. Labs: Laboratory Results - last 24 hr 12/06/24 12/06/24 02:00 03:30 WBC 10.5 RBC 4.65 Hgb 13.4 Hct 40.7 MCV 87.5 MCH 28.8 MCHC 32.9 RDW Std Deviation 41.3 RDW Coeff of Rosana 13.1 Plt Count 265 MPV 9.9 Immature Gran % (Auto) 0.300 Neut % (Auto) 60.7 Lymph % (Auto) 30.0 [place] % (Auto) 7.7 Eos % (Auto) 0.8 Baso % (Auto) 0.5 Absolute Neuts (auto) 6.4 Absolute Lymphs (auto) 3.15 Nucleated RBC % 0 Sodium 139 Potassium 3.9 Chloride 103 Carbon Dioxide 21.4 Anion Gap 15 BUN 15 Creatinine 1.04 Estim Creat Clear Calc 81.45 Est GFR (MDRD) Non-Af 79 BUN/Creatinine Ratio 14.3 Glucose 108 H Calcium 9.5 Total Bilirubin 0.20 AST 19 ALT 10 Alkaline Phosphatase 50 Total Protein 7.6 Albumin 4.4 Globulin 3.3 Albumin/Globulin Ratio 1.3 Lipase 36 Urine Color Straw Urine Clarity Clear Urine pH 7.0 Ur Specific Stanton 1.005 Urine Protein 15 H Urine Glucose (UA) Normal Urine Ketones Negative Urine Occult Blood Negative Urine Nitrite Negative Urine Bilirubin Negative Urine Urobilinogen Normal Ur Leukocyte Esterase 100 H Urine RBC 0 SEEN Urine WBC 0-5 SEEN Ur Squamous Epith Cells 0 SEEN Ur Transition Epith Cell 0-5 SEEN Urine Bacteria 0 SEEN Urine Mucus 0 SEEN Urine Test Negative Radiography Diagnostic Testing: Clinical Impression(s) from Imaging Studies Abdomen/Pelvis CT 12/06/24 02:33 IMPRESSION: On ovulating follicle in the left ovary with trace physiological free fluid in the pelvis. Otherwise, no acute abdominopelvic abnormalities. Reading Location: [facility] Discharge Plan Triage Chief Complaint: Abd Pain ED Provider: Kadie Gonzales Dx/Rx/DC Orders Clinical Impression: Abdominal pain, Diarrhea Instructions: ED Abdominal Pain Unkn Cause Fem Prescriptions: No Action norgestimate-ethinyl estradiol [Sprintec (28)] 0.25-35 mg-mcg tablet 1 tab PO QDAY Qty: 84 4RF dicyclomine 20 mg tablet 20 mg PO BID Qty: 60 0RF Primary Care Provider: Bonnie Flores Referrals: Bonnie Flores MD [Primary Care Provider] - Activity Restrictions/Additional Instructions: Your workup today was largely normal and reassuring. Please continue to follow- up with GI outpatient. Refrain from using dicyclomine as it seems to have caused worsening of your symptoms tonight. You may alternate ibuprofen and Tylenol as needed for discomfort. Please call your GI office on Sunday to let them know you are seen in the ER and that you had a CT performed. Print Language: [place] Island[place] Disposition Disposition: Home, Self Care What to do if you have Problems For any increased pain, shortness of breath, bleeding, nausea or vomiting, chestpain, or any unexpected problems, contact your Primary Care Provider. Call [facility] ([phone]) or report to the closest Emergency Room. Call 911 if necessary. 12/06/24 0635 <Electronically signed by Kadie Gonzales DO> Cosigner Signature (if applicable): CC: Dr. Bonnie Flores MD ~ Signed [facility] Work Phone: Evaluation noteNo assessment information available [facility] Work Phone: Evaluation note* Diagnosis Right shoulder pain- Primary Pain in joint, shoulder region Right shoulder pain, unspecified chronicity Right shoulder pain, unspecified chronicity [facility] Diagnosis Pre-operative examination Preoperative examination, unspecified Right shoulder pain, unspecified chronicity Post-operative pain Other acute postoperative pain documented in this encounter [facility]* Diagnosis Onset Date Resolution Status Acne acute Oral contraception initial prescription noneactive [facility] Work Phone: Evaluation note* Diagnosis Onset Date Resolution Status Acne acute Oral contraception initial prescription noneactive Acne acute Possible exposure to STD non eactive Oral contraceptive pill surveillance noneactive [facility] Work Phone: Evaluation note* Diagnosis Acute upper respiratory infection- Primary Acute upper respiratory infections of unspecified site documented in this encounter [facility] Work Phone: Evaluation note* Diagnosis Viral illness- Primary Unspecified viral infection, in conditions classified elsewhere and of unspecified site [facility] Author Pola Mirza [facility] Note Date/Time December 23, 2024 1:42pm [facility] Medical Records Department [address] [place] [address] History & Physical Exam 12/23/24 1340 MR#: [id number] Acct: [id number] Name: AMELIE NAIK Rep #:[id number] : 2005 19 From: Pola Mirza DO PCP: Dr. Bonnie Flores MD Status:[facility] Location: [address] HPI - General General Date of Admission: 12/23/24 Date of Service: 12/23/24 Chief Complaint: diarrhea HPI Narrative AMELIE NAIK, is a 19 F who presents for abdominal pain and diarrhea [facility] Medical History Back pain Non-smoker Acne Home Medications ?Medication ?Instructions ?Recorded ?Last Taken ?Type norgestimate 0.25 mg-ethinyl 1 tab PO QDAY #84 tabs Unknown Rx estradiol 0.035 mg tablet (Sprintec (28)) Allergy/AdvReac Type Severity Reaction Status Date / Time No Known Allergies Allergy Verified 12/23/24 12:18 Surgical History H/O shoulder surgery Social History pets and animals: Yes sexually active: No Smoking Status: Never smoker alcohol intake: never substance use type: does not use well-balanced diet: daily or most days caffeine: Yes Type: carbonated beverages, coffee and other what type of physical activity do you participate in: weight training seatbelt use: always ROS Constitutional Constitutional: Denies fatigue, fever(s), poor appetite, weight gain or weight loss Gastrointestinal Gastrointestinal: Denies belching, bloating, change in bowel habits, change in stool character, chewing difficulty, coffee ground emesis, constipation, cramping, diarrhea, dyspepsia, dysphagia, early satiety, excessive flatus, fecal incontinence, heartburn, hematemesis, hematochezia, hemorrhoids, loose stools, melena, nausea, odynophagia, rectal bleeding, tenesmus, vomiting or weight changes Vital Signs Vital Signs Vital Signs: 12/23/24 12:20 12/23/24 12:34 12/23/24 12:51 Temperature 98.2 F 98.2 F Temperature Source Temporal Pulse Rate 75 75 Respiratory Rate 16 16 Respiratory Pattern Normal Blood Pressure 111/64 111/64 Blood Pressure Mean 79 Blood Pressure Source Monitor Blood Pressure Position Semi-Fowlers Blood Pressure Location Left Arm Pulse Ox 100 100 Oxygen Delivery Method Room Air Room Air Weight Weight: 129 lb 10.109 oz Body Mass Index (BMI) 20.9 Physical Exam Const alert, oriented x3, no apparent distress and healthy appearing General Appearance: cooperative GI normal to inspection, nondistended, normoactive bowel sounds, soft to palpation,non-tender and non-distended Percussion: normal to percussion Rectal Exam: deferred Results Lab / Micro Data Labs: Laboratory Results - last 24 hr 12/23/24 12:35: Serum , Qual NEGATIVE Assessment & Plan Assessment/Plan (1) Abdominal pain: QUALIFIERS: Abdominal location: epigastric Qualified Code(s): R10.13 - Epigastric pain PLAN: Assessment and Plan Assessment and Plan (1) Dysphagia: (2) Loose stools: Status: Acute Plan: Veronique is a 32-year-old female patient here today for evaluation of loose stool, globus sensation, and epigastric pain. Patient's symptoms started about a year ago. She has constant feeling like there is something in her esophagus as well as concern of a smell coming up into her mouth. She denies issues with swallowing. Epigastric pain is worse on an empty stomach. Prior to 1 year ago patient had regular formed bowel movements however now she has multiple softer bowel movements per day. 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 I have ordered stool testing to rule out infection or inflammation in her colon. She will also undergo upper endoscopy to assess her upper GI tract for inflammatory processes such as EOE. I have also ordered food allergy testing. Celiac panel was negative. She will follow-up after testing. - EGD - Stool testing - Allergy panel - Follow-up after endoscopy (3) Epigastric abdominal pain: Status: Acute Orders: Orders Allergen, Food Profile 14 Today R19.5 - Other fecal abnormalities ENTERIC PATHOGEN PANEL STOOL Today K58.9 - Irritable bowel syndrome, unspecified, R19.5 - Other fecal abnormalities Giardia Lamblia, Stool EIA Today R19.5 - Other fecal abnormalities Ova and Parasites 8623 Today K58.9 - Irritable bowel syndrome, unspecified, R19.5 - Other fecal abnormalities Stool Lactoferrin/WBC Today K58.9 - Irritable bowel syndrome, unspecified, R19.5 - Other fecal abnormalities Calprotectin, Stool Today R19.5 - Other fecal abnormalities CDIFF (PCR) Today R19.5 - Other fecal abnormalities Medications: Discontinued oxycodone Discontinued Reason: Pt no longer taking 5 mg PO Q4H PRN 3 days PRN 10 [id number] Pain Score 4-10 Z98.891 - History of uterine scar from previous surgery cephalexin Discontinued Reason: Pt no longer taking 500 mg PO Q12 5 days 10 CAPSULES 0RF ondansetron Discontinued Reason: Pt no longer taking 4 mg PO Q8H PRN PRN 20 tabs 0RF Nausea oxycodone Discontinued Reason: Pt no longer taking 5 mg PO Q6H 5 days 20 caps 0RF N20.0 - Calculus of kidney tamsulosin Discontinued Reason: Pt no longer taking 0.4 mg PO DAILY 5 CAPSULES 0RF 12/23/24 1342 <Electronically signed by Pola Mirza DO> Cosigner Signature (if applicable): CC: Dr. Bonnie Flores MD; Pola Mirza DO~ Signed [facility] Work Phone: Hospital Discharge instructionsAdditional Instructions Your workup today was largely normal and reassuring. Please continue to follow- up with GI outpatient. Refrain from using dicyclomine as it seems to have caused worsening of your symptoms tonight. You may alternate ibuprofen and Tylenol as needed for discomfort. Please call your GI office on Sunday to let them know you are seen in the ER and that you had a CT performed.[facility] Work Phone: Progress note Author Abbie Tenorio [facility] Note Date/Time January 06, 2025 8:56am [facility] [address] [place] [address] OFFICE VISIT Date of Service: 01/06/25 MR#: [id number] Acct: [id number] Name: AMELIE NAIK Rep #: [id number] : 2005 Provider: IFRAH Freeman Age/Sex: 19/F Location: [facility] Status: Signed Intake Vital Signs 08/19/24 08:05 12/23/24 12:20 Height 5 ft 6 in 5 ft 6 in Intake Visit Reasons: Test Result Chief Complaint: test results and rectal bleeding Nut Feeder Required: No Is patient in pain?: Yes (lower abdomen) Allergies No Known Allergies Allergy (Verified 01/06/25 08:32) Medications ?Medication ?Instructions ?Recorded ?Confirmed ?Type norgestimate 0.25 mg-ethinyl 1 tab PO QDAY #84 tabs 01/06/25 Rx estradiol 0.035 mg tablet (Sprintec (28)) hyoscyamine sulfate 0.125 mg tablet 0.125 mg PO BID-QI D PRN dyspepsia 01/06/25 01/06/25 Rx #30 tabs PFSH Medical History Back pain Non-smoker Acne Surgical History H/O shoulder surgery Social History pets and animals: Yes sexually active: No Smoking Status: Never smoker alcohol intake: never substance use type: does not use well-balanced diet: daily or most days caffeine: Yes Type: carbonated beverages, coffee and other what type of physical activity do you participate in: weight training seatbelt use: always HPI HPI Chief Complaint: test results and rectal bleeding Details: AMELIE NAIK, is a 19 F who presents to the office today for follow-up. BGI established 11.27.24 with concerns for IBD patient has symptoms including abdominal pain, diarrhea and 7 pound unintentional weight loss over the past fewmonths, nausea and excessive gas. Laboratory findings: CBC without abnormality, CMP without abnormality, PATEL negative, food allergen negative, calprotectin negative, pancreatic elastase within normal limits CT abdomen pelvis On ovulating follicle in the left ovary with trace physiological free fluid in the pelvis. Otherwise, no acute abdominopelvic abnormalities Colonoscopy 12.23.24- The entire examined colon is normal. Biopsied. - Mild inflammation was found in the ileum secondary to ileitis. Biopsied. Pathology: Terminal ileum biopsy with mild acute inflammation prominent mucosal lymphoid tissue favor reactive. Colon biopsy no specific pathologic change. OV 01.06.25 patient continues to have loose stool daily. She has around 5 bowel movements per day that are sometimes formed and sometimes loose. Patient's abdominal pain is typically after she eats and is in her lower quadrants. At times she can have random sharp pains that are periumbilical. She did have an episode of bright red blood per rectum which filled the bowl. CBC was normal and she was seen by her primary care provider and given a cream for hemorrhoids. Bleeding has since resolved. ROS Const Constitutional: No fatigue, fever(s) or weight change ENT ENT: No difficulty swallowing Gastro GI: Positive for abdominal pain, diarrhea, Blood in stool and nausea/dyspepsia; No belching, bloating, change in bowel habits, change in stool character, coffeeground emesis, constipation, cramping, heartburn, difficulty swallowing, feelingfull early, excessive flatus, incontinent of stools, Vomiting blood/hematemesis,loose stools, Black,tarry stools, pain with swallowing, vomiting or other Musc Musculoskeletal: Positive for back pain; No joint pain Skin Skin: No yellowing of the eye or itchy eyes Psych Psychiatric: No anxiety and No depression Endo Endocrine: No fatigue or weight change Aller/Imm Allergy/Immunologic: No itchy eyes Duke/Lymp Hematologic/Lymphatic: No easy bleeding or easy bruising Exam Const General: cooperative, healthy appearing and comfortable Nutritional Appearance: average body habitus Orientation: alert HENHI Head: normal to inspection Ears: hearing grossly normal bilaterally Nose: external nose normal Eyes General: appearance normal, both eyes and all related structures Neck Neck: normal visual inspection Chest Chest palpation & inspection: normal inspection of the chest Resp Effort & Inspection: normal respiratory effort Cardio Rate: regular rate Rhythm: regular rhythm GI Inspection: normal to inspection Auscultation: normal bowel sounds Palpation: soft and nontender Assessment and Plan Assessment and Plan (1) Abdominal pain: Status: Acute Qualifiers: Abdominal location: epigastric Qualified Code(s): R10.13 - Epigastric pain Plan: Amelie is a 19-year-old female patient here today for follow-up after her colonoscopy. Colonoscopy showing mild inflammation at the terminal ileum and normal colon biopsies. I did review these results with patient. Mild inflammation at the terminal ileum is nonspecific and could be related to early Crohn's disease, medication induced injury or gastroenteritis. With her calprotectin being normal I am less concerned for Crohn's disease. She continues to have loose stool a few times per day and abdominal pain. Will trial fiber supplement daily and hyoscyamine as needed. We may consider budesonide for 8 weeks if she is refractory. I have also ordered celiac testingas this has not yet been completed. - Reviewed results -Celiac testing - Hyoscyamine as needed - Start fiber supplement - Follow-up as needed (2) Loose stools: Status: Acute Orders: Orders Celiac Disease Profile Today R10.13 - Epigastric pain, R19.5 - Other fecal abnormalities Medications: New hyoscyamine sulfate 0.125 mg PO BID-QID PRN 30 tabs 1RF dyspepsia Coding Level of Care Code Off vis,est,level 4 Diagnoses Epigastric pain R10.13 Abdominal location: epigastric Loose stools R19.5 01/06/25 0856 <Electronically signed by Abbie RG> Date _ Abbie RG Cosigner Signature: Date (if applicable) CC: ~ [facility] Work Phone: Reason for referral (narrative)No reason for referral information availableBl[facility] Work Phone: Summary Purpose Family History No Family History Records FoundNo Family History Records FoundNo Family History Records FoundNo Family History Records FoundNo Family History Records Found Advance Directives Advance Directive Response Recorded Date/ Time Do you have a Healthcare Power of Journeyman Pipe Welder? No December 06, 2024 1:56am Advance Directive Response Recorded Date/ Time Do you have a Healthcare Power of Journeyman Pipe Welder? No December 17, 2024 10:31am Do you have a Healthcare Power of Journeyman Pipe Welder? No December 06, 2024 1:56am Chief Complaint and Reason for Visit Chief Complaint SKIN SKIN/ACNE Chief Complaint SKIN/ACNE RIGHT SHOULDER INSTABILITY. RX HERE RIGHT SHOULDER INSTABILITY Chief Complaint BC CONSULT 1st Gardisal Shot S/P R SHOULDER/TEAR. DR WINTERS FAX Reason for Visit Acne Oral contraception initial prescription Chief Complaint BC CONSULT 1st Gardisal Shot S/P R SHOULDER/TEAR. TO FAX 2nd gardisal shot 3m med check Reason for Visit Acne Oral contraception initial prescription Acne Possible exposure to STD Oral contraceptive pill surveillance Chief Complaint RIGHT SHOULDER PAIN. 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 8:02am POSSIBLE IBS November 27, 2024 8: 59am INT LABS November 27, 2024 9: 39am INT LABSPEC November 28, 2024 9: 52am abd pain December 06, 2024 1: 53am Chief Complaint Admit Date POSSIBLE IBS November 27, 2024 8: 59am INT LABS November 27, 2024 9: 39am INT LABSPEC November 28, 2024 9: 52am abd pain December 06, 2024 1: 53am Reason for Visit Admit Date Abdominal pain November 27, 2024 8: 59am Abdominal pain December 23, 2024 12:01pm Chief Complaint Admit Date POSSIBLE IBS November 27, 2024 8: 59am INT LABS November 27, 2024 9: 39am INT LABSPEC November 28, 2024 9: 52am abd pain December 06, 2024 1: 53am Test Result January 06, 2025 8:25am INT LABS January 06, 2025 8:50am Reason for Visit Admit Date Abdominal pain November 27, 2024 8: 59am Abdominal pain December 23, 2024 12:01pm Abdominal pain January 06, 2025 8:25am Loose stools January 06, 2025 8:25am Additional Source Comments INFORMATION SOURCE (unrecogn ized section and content) DATE CREATED AUTHOR 06/10/2020 [facility] DATE CREATED AUTHOR 'S LOIS ROMERO 11/23/2022 [facility] DATE CREATED AUTHOR AUTHOR'S ORGANIZ ATION 12/26/2023 [facility] DATE CREATED AUTHOR AUTHOR'S ORGANIZ ATION 05/20/2024 [facility] DATE CREATED AUTHOR AUTHOR'S ORGANIZ ATION 01/16/2025 [facility] Goals (unrecognized section and content) [...] Care Teams (unrecognized sec tion and content) Yellow Pages Space Salesperson Relationship Specialty Start Date End Date Alan Vences MD [address] [place], [place] [phone] PCP - General Family Medicine 11/04/21 Yellow [employer] Space Salesperson Relationship Specialty Start Date End Date Alan Vences MD [address] [place], [place] [phone] PCP - General Family Medicine 11/22/21 Team Status: Active Member Role Status Dates Dr. Shawn Vences MD Family Provider Active Dr. Shawn Vences MD Primary Care Provider Activ e Team Status: Inactive Member Role Status Dates Dr. Shawn Vences MD Primary Care Provider Activ e CHARLOTTE JOHNSON Attending Provider, Referring Provider Active Yellow Pages Space Salesperson Relationship Specialty Start Date End Date Alan Vences MD [address] [place], [place] [phone] PCP - General Family Medicine 12/25/23 Team Status: Active Member Role/Relationship Status Dates Dr. Bonnie Flores MD Primary Care Provider Active Team Status: Inactive Member Role/Relationship Status Dates Dr. Bonnie Flores MD Primary Care Provider Active Start: August 19, 2024 End: August 19, 2024 Dr. Bonnie Flores MD Referring Provider Active Start: August 19, 2024 End: August 19, 2024 Trista Rubio NP INTERMEDIATE MANAGER-C Attending Provider Active Start: August 19, 2024 End: August 19, 2024 Team Status: Inactive Member Role/Relationship Status Dates Dr. Bonnie Flores MD Primary Care Provider Active Start: November 27, 2024 End: November 27, 2024 Dr. Bonnie Flores MD Referring Provider Active Start: November 27, 2024 End: November 27, 2024 Mayelin Luna NP-C Attending Provider Active S tart: November 27, 2024 End: November 27, 2024 Team Status: Inactive Member Role/Relationship Status Dates Dr. Bonnie Flores MD Primary Care Provider Active Start: November 27, 2024 End: November 27, 2024 Mayelin Luna INTERMEDIATE MANAGER-C Attending Provider Active S tart: November 27, 2024 End: November 27, 2024 Mayelin Luna NP-C Referring Provider Active S tart: November 27, 2024 End: November 27, 2024 Team Status: Active Member Role/Relationship Status Dates Dr. Bonnie Flores MD Primary Care Provider Active Start: November 28, 2024 Dr. Bonnie Flores MD Attending Provider Active Start: November 28, 2024 Dr. Bonnie Flores MD Referring Provider Active Start: November 28, 2024 Mayelin Luna NP-C Other Provider Active Start : November 28, 2024 Team Status: Inactive Member Role/Relationship Status Dates Dr. Bonnie Flores MD Primary Care Provider Active Start: November 28, 2024 End: November 28, 2024 Dr. Bonnie Flores MD Attending Provider Active Start: November 28, 2024 End: November 28, 2024 Dr. Bonnie Flores MD Referring Provider Active Start: November 28, 2024 End: November 28, 2024 Mayelin Luna NP-C Other Provider Active Start : November 28, 2024 End: November 28, 2024 Team Status: Inactive Member Role/Relationship Status Dates Dr. Bonnie Flores MD Primary Care Provider Active Start: December 06, 2024 End: December 06, 2024 Dr. Kadie Gonzales DO Emergency Provider Active Start: December 06, 2024 End: December 06, 2024 Team Status: Inactive Member Role/Relationship Status [...] 2024 End: November 27, 2024 PARIS Cancino Referring Provider Active S tart: November 27, [...] November 28, 2024 End: November 28, 2024 Team Status: Inactive Member Role/Relationship Status Dates Dr. Bonnie Flores MD Primary Care Provider Active Start: December 06, 2024 End: December 06, 2024 Dr. Kadie Gonzales DO Attending Provider Active Start: December 06, 2024 End: December 06, 2024 Dr. Kadie Gonzales DO Emergency Provider Active Start: December 06, 2024 End: December 06, 2024 Team Status: Inactive Member Role/Relationship Status Dates Dr. Bonnie Flores MD Primary Care Provider Active Start: December 23, 2024 End: December 23, 2024 Dr. Bonnie Flores MD Referring Provider Active Start: December 23, 2024 End: December 23, 2024 Dr. Pola Mirza DO Attending Provider Active Start: December 23, 2024 End: December 23, 2024 Team Status: Active Member Role/Relationship Status Dates Dr. Bonnie Flores MD Primary Care Provider Active Start: December 23, 2024 Dr. Bonnie Flores MD Referring Provider Active Start: December 23, 2024 Dr. Pola Mirza DO Attending Provider Active Start: December 23, 2024 Dr. Pola Mirza DO Other Provider Active St art: December 23, 2024 Team Status: Active Member Role/Relationship Status Dates Dr. Bonnie Flores MD Primary care physician Active Team Status: Inactive Member Role/Relationship Status Dates Dr. Bonnie Flores MD Primary care physician Active Start: November 27, 2024 End: November 27, 2024 Dr. Bonnie Flores MD Referring Provider Active Start: November 27, 2024 End: November 27, 2024 PARIS Cancino Attending physician Active Start: November 27, 2024 End: November 27, 2024 Team Status: Inactive Member Role/Relationship Status Dates Dr. Bonnie Flores MD Primary care physician Active Start: November 27, 2024 End: November 27, 2024 PARIS Cancino Attending physician Active Start: November 27, 2024 End: November 27, 2024 PARIS Cancino Referring Provider Active S tart: November 27, 2024 End: November 27, 2024 Team Status: Inactive Member Role/Relationship Status Dates Dr. Bonnie Flores MD Primary care physician Active Start: November 28, 2024 End: November 28, 2024 Dr. Bonnie Flores MD Attending physician Active Start: November 28, 2024 End: November 28, 2024 Dr. Bonnie Flores MD Referring Provider Active Start: November 28, 2024 End: November 28, 2024 PARIS Cancino Nurse Practitioner Active S tart: November 28, 2024 End: November 28, 2024 Team Status: Inactive Member Role/Relationship Status Dates Dr. Bonnie Flores MD Primary care physician Active Start: December 06, 2024 End: December 06, 2024 Dr. Kadie Gonzales DO Attending physician Active Start: December 06, 2024 End: December 06, 2024 Dr. Kadie Gonzales DO Emergency Department Physician Active Start: December 06, 2024 End: December 06, 2024 Team Status: Inactive Member Role/Relationship Status Dates Dr. Bonnie Flores MD Primary care physician Active Start: December 23, 2024 End: December 23, 2024 Dr. Bonnie Flores MD Referring Provider Active Start: December 23, 2024 End: December 23, 2024 Dr. Pola Mirza DO Attending physician Active Start: December 23, 2024 End: December 23, 2024 Team Status: Active Member Role/Relationship Status Dates Dr. Bonnie Flores MD Primary care physician Active Start: December 23, 2024 Dr. Bonnie Flores MD Referring Provider Active Start: December 23, 2024 Dr. Pola Mirza DO Attending physician Active Start: December 23, 2024 Dr. Pola Mirza DO Nurse Practitioner Active Start: December 23, 2024 Team Status: Active Member Role/Relationship Status Dates Dr. Bonnie Flores MD Primary care physician Active Start: January 02, 2025 IFRAH Freeman Attending physician Active Start: January 02, 2025 Team Status: Inactive Member Role/Relationship Status Dates Dr. Bonnie Flores MD Primary care physician Active Start: January 06, 2025 End: January 06, 2025 Dr. Bonnie Flores MD Referring Provider Active Start: January 06, 2025 End: January 06, 2025 IFRAH Freeman Attending physician Active Start: January 06, 2025 End: January 06, 2025 Team Status: Active Member Role/Relationship Status Dates Dr. Bonnie Flores MD Primary care physician Active Start: January 06, 2025 IFRAH Freeman Attending physician Active Start: January 06, 2025 IFRAH Freeman Referring Provider Active Start: January 06, 2025 Team Status: Inactive Member Role/Relationship Status Dates Dr. Bonnie Flores MD Primary care physician Active Start: January 02, 2025 End: January 02, 2025 IFRAH Freeman Attending physician Active Start: January 02, 2025 End: January 02, 2025 Team Status: Inactive Member Role/Relationship Status Dates Dr. Bonnie Flores MD Primary care physician Active Start: January 06, 2025 End: January 06, 2025 IFRAH Freeman Attending physician Active Start: January 06, 2025 End: January 06, 2025 IFRAH Freeman Referring Provider Active Start: January 06, 2025 End: January 06, 2025 Reason for Visit (unrecogniz ed section and content) Specialty Diagnoses / Procedures Referred By Augustus maldonado Referred To Contact Diagnoses Right shoulder pain, unspecified chronicity Right shoulder pain, unspecified chronicity [M25.511] Procedures MO SHLDR ARTHROSCOP,SURG,CAPSULORRHA PHY ARTHROSCOPY SHOULDER ARTHOSCOPIC [facility] [place] [address] [place] [address] Referral ID Status Reason Start Date Expiration Date Visits Re quested Visits Authorized [id number] 1 1 Reason Comments Sore Throat Sore [...] Mayelin Hamilton RN)1101 (Paused - Provider: Mayelin Hamilton, CHRISTEL)1101 (Restarted - Provider: Mayelin Hamilton RN)[id number] (Stopped - Provider: Mayelin Hamilton RN) PRN Medication Order 11/20/2021 11/21/2021 11/22/2021 [...] or prosecute any alcohol or drug abuse patient.[facility] FOR RECORDS PERTAINING TO PATIENTS WHO [...] BE BASED ON THE PRIMARY CLINICAL RECORDS. [facility] [employer] [facility]. provides no warranty or guarantee of the accuracy or completeness of information in this document.
--- NOTE | 2025-02-01 13:26 | CM.ED ---
Social Work Date of referral: 02/01/25 Reason for referral: Trauma Referred by: Social Work identification Patient provided consent to social work visit. Patient's mother was also present. Pinion Sorter checked in with patient and offered support/assessed for any current needs. Patient stated she was doing ok and denied any additional needs at this time. Kalpana Aleman, BREAD ICER, INSURANCE ADVISOR
--- NOTE | 2025-02-01 13:45 | CT_ITS ---
PROCEDURE: CT BRAIN/HEAD WITHOUT CONTRAST 02/01/2025 REASON FOR EXAM: HEAD INJURY TECHNIQUE: Procedure Code: CTBR Modality: CT Procedure: BRAIN/HEAD WITHOUT CONTRAST Coronal and Sagittal reconstruction series were provided. One or more dose reduction techniques were used (e.g., Automated exposure control, adjustment of the mA and/or kV according to patient size, use of iterative reconstruction technique. RADIATION DOSE SUMMARY: CTDlvol: 44.99 mGy DLP: 762.36 mGycm COMPARISON: None. FINDINGS: No acute intracranial hemorrhage, extra-axial collection, mass effect or evidence of acute infarct. Ventricles and subarachnoid spaces are normal in size. Orbital contents are unremarkable. Intact skull base and calvarium. Well-aerated paranasal sinuses and mastoid air cells. CT/Brain/Head without Contrast IMPRESSION: No acute intracranial abnormality. Reading Location: [id number]
--- NOTE | 2025-02-01 14:08 | EX.ED.GENINJ ---
HPI History of Present Illness Chief Complaint: Head Injury Narrative Narrative: Chief complaint and HPI: 28-year-old female with no significant past medical history presents for evaluation of closed head injury. 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 Hit her in the mid forehead. No LOC. Not on blood thinners. Was not wearing a helmet. Endorses a headache and some lightheadedness. Denies any vision changes, hearing changes, facial pain, neck pain, chest pain, shortness of breath. Has not had anything for the pain. Review of systems: See HPI Medications: As listed on the chart Allergies: As listed on the chart PFSH: Per chart Vital signs: As listed on the chart. Reviewed. Physical exam: Gen: A&O x3, NAD Head: Normocephalic, hematoma and abrasion to the mid forehead, no Steiner sign Eyes: No sclera icterus, conjunctiva clear, PERRL, EOMI, no raccoon eyes ENT: TMs clear BL, moist mucous membranes, no swelling/lacerations/blood in the mouth or the nares, No nasal septal hematoma, no facial tenderness Neck: Trachea midline, Nontender, full range of motion CV: RRR, no murmurs Resp: Lungs CTA BL, no w/r/c Musc: Full ROM, no deformity Skin: Warm, dry Neuro: Alert, oriented, grossly intact, sensation intact, GCS 15 Psych: Cooperative, appropriate mood and affect [facility] Medical History Back pain Non-smoker Acne Home Medications ?Medication ?Instructions ?Recorded ?Last Taken ?Type norgestimate 0.25 mg-ethinyl 1 tab PO QDAY #84 tabs 08/19/24 Unknown Rx estradiol 0.035 mg tablet (Sprintec (28)) hyoscyamine sulfate 0.125 mg tablet 0.125 mg PO BID-QID PRN dyspepsia 01/06/25 Unknown Rx #30 tabs Allergy/AdvReac Type Severity Reaction Status Date / Time No Known Allergies Allergy Verified 01/06/25 08:32 Surgical History H/O shoulder surgery Social History pets and animals: Yes sexually active: No Smoking Status: Never smoker alcohol intake: never substance use type: does not use well-balanced diet: daily or most days caffeine: Yes Type: carbonated beverages, coffee and other what type of physical activity do you participate in: weight training seatbelt use: always EXAM Physical Exam Const Vital Signs: 02/01/25 12:34 02/01/25 12:34 Temperature 98.4 F Temperature Source Oral Pulse Rate 84 Respiratory Rate 16 Respiratory Effort Normal Non-Labored Respiratory Depth Normal Respiratory Pattern Normal Blood Pressure 129/88 H Blood Pressure Mean 101 Pulse Ox 100 Oxygen Delivery Method Room Air Room Air MDM MDM MDM Narrative Medical decision making narrative: 28-year-old female with no significant past medical history presents for evaluation of closed head injury. 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 Hit her in the mid forehead. No LOC. Not on blood thinners. Was not wearing a helmet. Differential diagnosis includes but is not limited to contusion, concussion, fracture. Tylenol ordered for pain. Will clean abrasion. CT head ordered. CT of the head without any acute traumatic injury. Dermabond was applied to the superficial forehead laceration. Patient stable to discharge home. Recommend Tylenol and Motrin as needed for headache. Monitor for signs of concussion. Educated to wear helmet. Educated not to return back to coaching or physical activity until cleared for concussion. Return precautions explained. She confirmed understand the plan. Patient able to discharge home. Impression: 1. Closed head injury 2. Forehead contusion 3. Forehead laceration Radiography Diagnostic Testing: Clinical Impression(s) from Imaging Studies Brain CT 02/01/25 13:45 IMPRESSION: No acute intracranial abnormality. Reading Location: [id number] Discharge Plan Triage Chief Complaint: Head Injury ED Provider: Daniel Keyes Dx/Rx/DC Orders Prescriptions: No Action norgestimate-ethinyl estradiol [Sprintec (28)] 0.25-35 mg-mcg tablet 1 tab PO QDAY Qty: 84 4RF hyoscyamine sulfate 0.125 mg tablet 0.125 mg PO BID-QID PRN (Reason: dyspepsia) Qty: 30 1RF Primary Care Provider: Bonnie Flores Referrals: Bonnie Flores MD [Primary Care Provider, Family Practice] Print Language: Uzbek
[2025-02-01 16:43] VITALS: BP 114/75; PULSE 86; RESP 16; TEMP 36.4; O2SAT 99
== END 2025-02-01 16:44 | disposition home or self-care (01) ==
PROVIDERS: Emergency Provider Surgery; PCP Family Medicine; Visit Provider Surgery
DX: S09.90XA Unspecified injury of head, initial encounter (principal); S01.81XA Laceration without foreign body of other part of head, initial encounter; W21.19XA Struck by other bat, racquet or club, initial encounter
CPT/HCPCS: 70450; 99282

== ENCOUNTER → 2025-02-18 | Outpatient (CLI) | payer BC, SELFPAY ==
[2025-02-18 15:48] LABS: Hematocrit 40.1 % (37-47); Hemoglobin 13.1 g/dL (12.0-15.0); Immature Granulocytes Count 0.020 X10^3/uL (0.0-0.0); Mean Corp Hgb Conc 32.7 g/dL (32-36); Mean Corpuscular Volume 87.4 fL (81-99); Mean Platelet Vol. 9.2 fl (6.2-12.0); NRBC Flagged by Analyzer 0 % (0-5); Platelet Count 286 K/mm3 (150-450); RBC Distribution Width CV 12.6 % (11.6-14.6); RBC Distribution Width SD 39.9 fl (35.1-43.9); Red Blood Count 4.59 M/mm3 (4.2-5.4); White Blood Count 10.7 K/mm3 (4.4-11.0)
== END | disposition home or self-care (01) ==
LOC: LAB 15:32
PROVIDERS: PCP Family Medicine; Referring Provider Student in an Organized Health Care Education/Training Program; Visit Provider Student in an Organized Health Care Education/Training Program
DX: R19.5 Other fecal abnormalities (principal); K62.5 Hemorrhage of anus and rectum
CPT/HCPCS: 36415; 85025

== ENCOUNTER → 2025-02-24 | Outpatient (CLI) | payer BC, SELFPAY ==
[2025-02-26 17:08] LABS: Calprotectin, Stool 51 ug/g (0-120)
== END | disposition home or self-care (01) ==
LOC: LABSPEC 11:25
PROVIDERS: PCP Family Medicine; Referring Provider Student in an Organized Health Care Education/Training Program; Visit Provider Student in an Organized Health Care Education/Training Program
DX: K58.9 Irritable bowel syndrome, unspecified (principal); R19.5 Other fecal abnormalities; K62.5 Hemorrhage of anus and rectum
CPT/HCPCS: 83993; 87177; 87209; 87329; 87493; 87506

== ENCOUNTER → 2025-03-19 | Outpatient (CLI) | payer BC, SELFPAY ==
[2025-03-19 16:22] LABS: Hematocrit 39.9 % (37-47); Hemoglobin 12.7 g/dL (12.0-15.0); Immature Granulocytes Count 0.040 X10^3/uL (0.0-0.0); Mean Corp Hgb Conc 31.8 g/dL (32-36); Mean Corpuscular Volume 88.5 fL (81-99); Mean Platelet Vol. 9.4 fl (6.2-12.0); NRBC Flagged by Analyzer 0 % (0-5); Platelet Count 281 K/mm3 (150-450); RBC Distribution Width CV 12.6 % (11.6-14.6); RBC Distribution Width SD 41.4 fl (35.1-43.9); Red Blood Count 4.51 M/mm3 (4.2-5.4); White Blood Count 7.9 K/mm3 (4.4-11.0)
[2025-03-19 16:56] LABS: AST(SGOT) 17 U/L (<=31); Alanine Aminotransfer ALT/SGPT 11 U/L (<=34); Albumin, Serum 4.2 g/dL (3.5-5.0); Alkaline Phosphatase 52 U/L (35-104); Anion Gap 9 (5-15); BUN 13 mg/dL (4-19); BUN/Creat Ratio 15.7 RATIO (10-20); Calcium,Total 8.8 mg/dL (7.6-11.0); Carbon Dioxide 25.4 mmol/L (21.0-32.0); Chloride 105 mmol/L (98-108); Globulin 3.1 g/dL (2.2-4.2); Glucose 100 mg/dL (70-99); Potassium 4.0 mmol/L (3.3-5.1)
== END | disposition home or self-care (01) ==
LOC: LAB 15:21
PROVIDERS: PCP Family Medicine; Referring Provider Student in an Organized Health Care Education/Training Program; Visit Provider Student in an Organized Health Care Education/Training Program
DX: R19.5 Other fecal abnormalities (principal); K62.5 Hemorrhage of anus and rectum; R10.13 Epigastric pain
CPT/HCPCS: 36415; 80053; 85025